=== PATIENT | female | born 1955 | race Caucasian/White ===

== ENCOUNTER 2023-09-16 16:33 | Outpatient (RCR) | payer MEDICARE, SELFPAY ==
[2023-09-16 14:11] LABS: Glucose - Point of Care 142 mg/dl (70-99)
[2023-09-16 14:50] LABS: Glucose - Point of Care 117 mg/dl (70-99)
== END 2023-09-16 23:59 | disposition home or self-care (01) ==
LOC: CRHB 16:33
PROVIDERS: ATTENDING PHYSICIAN Internal Medicine Cardiovascular Disease; FAMILY PHYSICIAN Internal Medicine
DX: I25.10 Atherosclerotic heart disease of native coronary artery without angina pectoris (principal); Z95.5 Presence of coronary angioplasty implant and graft; I25.2 Old myocardial infarction; E78.5 Hyperlipidemia, unspecified; E11.9 Type 2 diabetes mellitus without complications
CPT/HCPCS: 82962; G0422

== ENCOUNTER 2023-10-18 11:28 | Emergency (ER) | payer MEDICARE, SELFPAY ==
[2023-10-18] VITALS (7 sets, daily range): BP systolic 108–144; BP diastolic 51–84
[2023-10-18 12:42] LABS: % Basophils 0.2 % (0-2); % Eosinophils 1.2 % (0-6); % Immature Granulocytes 0.3 % (0-0.5); % Neutrophils 74.3 % (42.2-75.2); Absolute Eosinophils 0.1 10^3/uL (0-0.7); Absolute Lymphocytes 1.8 10^3/uL (1.2-3.4); Absolute Monocytes 0.6 10^3/uL (0.1-0.6); Absolute Neutrophils 7.5 10^3/uL (1.4-6.5); Hematocrit 34.7 % (37.0-47.0); Hemoglobin 11.7 g/dL (12.0-16.0); Mean Corp Hgb Conc. 33.7 g/dL (33.0-37.0); Mean Corpuscular Hgb 31.9 pg (27.0-31.0); Mean Corpuscular Volume 94.6 fL (81.0-99.0); Mean Platelet Volume 9.2 fL (7.4-10.4); Nucleated Red Blood Cells % 0 %; Platelet Count 344 10^3/uL (130-400); Red Blood Cell Count 3.67 10^6/uL (4.20-5.40); Red Cell Dist. Width 13.2 % (11.5-14.5)
[2023-10-18 12:48] LABS: INR 0.99; PT 12.9 Sec (11.4-14.6)
[2023-10-18 12:50] LABS: ALT (SGPT) 33 U/L (0-35); AST (SGOT) 26 U/L (14-36); Alkaline Phosphatase 68 U/L (38-126); Blood Urea Nitrogen 24 mg/dl (7-17); Calcium 9.2 mg/dl (8.4-10.2); Carbon Dioxide 23 mmol/L (22-30); Chloride 105 mmol/L (98-107); Glucose 190 mg/dl (70-99); Potassium 4.4 mmol/L (3.5-5.1); Sodium 135 mmol/L (135-145); Total Bilirubin 0.6 mg/dl (0.2-1.3); Total Protein 6.8 g/dl (6.3-8.2); eGFR > 60.00
[2023-10-18 13:01] LABS: Troponin I < 0.012 ng/ml
[2023-10-18 13:10] LABS: APTT 23.6 Sec (23.4-35.0)
--- NOTE | 2023-10-18 13:50 | CON.CAR ---
Addendum entered and electronically signed by Radha Hardin MD 10/18/23 15:26:
I saw and examined the patient.
The TELEMARKETING MANAGER's note was reviewed and I agree with the note.
Comment: 67 y/o female with hypertension, DM, dyslipidemia, and NSTEMI/CAD with stenting (ostial/proximal and mid circ) 07/2023, left shoulder orthopedic issues s/p cortisone injection Aug 2023 who presents for evaluation of brief episode of lt
upper chest/shoulder pain. She began to feel anxious and hot so sought care. She is feeling well, and only complaint is bruising from DAPT> Rrr, s1/s2 no m/r/g. LUNGS CTA. ECG is without ischemic changes, fisrt trop negative. Atypical cp, will
check add'l trop and if normal will follow up at outpatient. Symptoms c/w noncardiac etiology. She will continue remaining medi ations for CAD, HTN and DM.
Original Note:
Consultation
Consultation Request
Date/Time Consultation Requested: 10/18/23 1346
Date/Time Consultation Performed: 10/18/23 1400
Requesting Provider: Dr. Stephon Patel
Performing Provider: Mragaret BENÍTEZ for Dr. Hardin
Reason for Consultation: chest discomfort/ shoulder discomfort
Medical History
-
Chief Complaint: chest/shoulder discomfort
History of Present Illness:
67 y/o female with hypertension, DM, dyslipidemia, and NSTEMI/CAD with stenting (ostial/proximal and mid circ) 07/2023, left shoulder orthopedic issues s/p cortisone injection Aug 2023 who is here for evaluation of left upper chest/shoulder
discomfort since yesterday. It is a dull discomfort and lasts seconds. Nothing makes it better or worse. This morning, she worked out on the treadmill for 20 minutes without any discomfort. She was feeling well, then sat down to do bills and had the
discomfort again and then felt a wave of heat. She called 911 and was told to take a nitro and ASA. It was gone quickly, but she wasn't sure if that's what helped. She is CP free at the time of my assessment and looks quite well. EKG and trop look
good. Previous angina was left arm and neck pain and nausea/vomiting.
Past Medical History
Past Medical History: CAD, HTN, Hypercholesterolemia and NIDDM
Social History
Tobacco: Former Smoker
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
Family History
Family History: Reviewed & Not Pertinent
Allergies / Home Medications
Allergy/AdvReac Type Severity Reaction Status Date / Time
sulfamethoxazole Allergy Vomiting Verified 08/21/23 11:20
[From Bactrim]
trimethoprim [From Bactrim] Allergy Vomiting Verified 08/21/23 11:20
Medication Instructions Recorded Confirmed Type
lorazepam 0.5 mg tablet (Ativan) 0.5 mg PO DAILYPRN PRN panic 07/18/23 07/20/23 History
attacks,anxiety
magnesium 250 mg tablet 250 mg PO DAILY 07/18/23 07/20/23 History
ticagrelor 90 mg tablet (Brilinta) 90 mg PO BID Heart Failure #60 tabs 07/19/23 Rx
aspirin 81 mg tablet,delayed 81 mg PO DAILY 07/20/23 07/20/23 History
release
escitalopram oxalate 20 mg tablet 20 mg PO DAILY 07/20/23 07/20/23 History
(Lexapro)
losartan 100 mg tablet 50 mg PO DAILY 07/20/23 07/20/23 History
metformin 1,000 mg tablet 1,000 mg PO BID@0800,1700 07/20/23 07/20/23 History
metoprolol succinate 50 mg 50 mg PO DAILY #90 tabs 07/20/23 Rx
tablet,extended release 24 hr
(Toprol XL)
nitroglycerin 0.4 mg sublingual 0.4 mg sublingual [id number] PRN 07/20/23 Rx
tablet chest pain #25 tabs
rosuvastatin 20 mg tablet (Crestor) 20 mg PO DAILY #90 tabs 07/20/23 Rx
Review of Systems
-
History Source: Patient
All other systems: Negative unless noted
Constitutional: Other (hot feeling)
Cardiac: Chest Pain (chest/shoulder pain)
Musculoskeletal: Other (chest/shoulder pain)
Physical Exam
Vital Signs
Temp Pulse Resp BP Pulse Ox
98.2 F 68 15 116/51 95
10/18/23 11:29 10/18/23 12:30 10/18/23 12:30 10/18/23 12:00 10/18/23 12:30
Lab Results
10/18/23 12:29
10/18/23 12:29
Troponin I < 0.012 ng/ml 10/18/23 12:29
Physical Exam
General: Well Developed, Well Nourished and No Apparent Distress
HEENT: Normocephalic and Anicteric
Respiratory: Clear and Non Labored Respirations
Cardiac: Regular Rhythm
Breast: Deferred by me
Skin: Warm and Dry
Neuro: AO x 3
Psych: Calm
Impression / Plan
-
Chest/shoulder discomfort/hot feeling:
-resolved
-does not sound like ACS
-EKG and trop unremarkable
-exercised this AM without difficulty
-check another troponin
-does have known orthopedic issues as noted
HTN:
-stable
-continue medical therapy
DM2:
-continue medical therapy
CAD with hx stenting:
-continue ASA, Brilinta, metoprolol, and statin
Data Reviewed
-
EKG: Tracing Personally Visualized and interpreted (SR, stable)
Radiology: Report Reviewed by me (CXR: . Clear lungs. 2. No significant change compared to prior study.)
Medical Tests (Nuc Med, Echo etc): Report Reviewed by me (echo 07/19/23: Normal left ventricular size with mild concentric remodeling with inferior and inferolateral hypokinesis but preserved systolic function. Left ventricular ejection fraction
is 60-65%. Mild to moderate MR.) and Other (cath 07/31/23: ACS/non-STEMI presentation 2: Normal left ventricular function with EF 63% 3. Severe single-vessel (dominant circumflex) disease. Successful stenting of ostial/proximal and mid circumflex
lesions using 4.0 x 28 Xience REINALDO with outstanding angiographic result )
Labs: Labs Reviewed by me
[2023-10-18 15:58] LABS: Troponin I < 0.012 ng/ml
--- NOTE | 2023-10-18 17:50 | ED.GENMED ---
History of Present Illness
General
Chief Complaint: Chest Pain
Source: patient
Exam Limitations: none
Time Seen by Provider: 10/18/23 12:00
Nursing documentation reviewed up to this point in time: agreed with
Travel History
Have you had any contact with someone who has COVID-19?: No
Do you have any symptoms of coronavirus? Fever > 100 degrees, chills, cough, shortness of breath, sore throat, loss of taste or smell, muscle aches, or headache?: No
History of Present Illness
History of Present Illness:
67-year-old female with past medical history as documented notable for CAD status post stent in July 2023 (follows with Dr. Triplett for cardiology) who presents to the emergency room for evaluation of left shoulder and chest pain. Patient
reports she has had chronic issues with her left shoulder for months. She feels that over the past few weeks it may be slightly more frequent. She says that today she had an episode of pain in the left shoulder while she was at work that was
associated with some left-sided chest pain as well as some sensation of feeling 'very hot' and mildly dizzy. She says she felt mildly short of breath. She felt mildly nauseated. No vomiting. She says she thought that her symptoms could be
related to anxiety as she has been worried that her shoulder pain could be cardiac, with these new additional symptoms today she decided to come to the emergency room for assessment. She did take 3 baby aspirin and nitroglycerin at the urging of
the handhole machine operator. At the time of my assessment she says she is asymptomatic although shortly after finishing my assessment her left shoulder/chest pain returned. Of note patient says she did run on the treadmill for 20 to 30 minutes earlier today
and had absolutely no chest pain.
Past History
Past History
ED Past Medical History: CAD, HTN, Hypercholesterolemia, NIDDM, [place], Psychiatric and Other (renal calc)
ED Past Surgical History: Cardiac, Gynecological, Orthopedic and Tonsilectomy
Social History
Tobacco: Non-smoker
Alcohol: Occasional
Drug: None
Personal:
Living: with family
Employment: Employed
Review of Systems
Review of Systems
All Other Systems: ROS reviewed and negative except as documented in HPI and ROS
Constitutional: Denies fever or chills
EENT: Denies sore throat
Respiratory: Reports trouble breathing; Denies cough
Cardiac: Reports chest pain; Denies diaphoresis, palpitations or syncope
ABD/GI: Reports nausea; Denies abdominal pain or vomiting
: Denies flank pain
Musculoskeletal: Denies neck pain or back pain
Neurological: Reports dizzy; Denies headache, weakness or numbness
Phy Exam
Physical Exam
Physical Exam:
General: Awake, alert, oriented x3; no acute distress
Head: Normocephalic, atraumatic
Eyes: Conjunctiva normal, sclera anicteric
Throat: Airway intact, handling secretions
Neck: Trachea midline, supple without meningismus
Lungs: Clear to auscultation bilaterally, no wheezing, rales, rhonchi
Heart: Regular rate and rhythm, no murmurs, gallops, or rubs
Abd: Soft, non distended, nontender
Neuro: Cranial nerves grossly intact, speech fluid
Skin: no rash
Extremities: No edema in extremities, equal pulses in all extremities; with attention of the left shoulder she does have reproducible tenderness over the left anterior lateral humeral head; no scapular tenderness or tenderness along the clavicle on
the left; she has pain with internal/external rotation and flexion/extension of the shoulder; she has good strong left radial pulse and she has intact motor and sensory function radial, median, ulnar nerve distribution left upper extremity
Scores
Heart Failure Risk
Heart Failure Risk Score: Not Applicable
Heart Score for Chest Pain Patients
STEMI patient?: No
History: Moderately Suspicious
ECG: Normal
Age: >/= 65 years
Risk Factors: >/= 3 Risk Factors or History of CAD
Troponin: </= Normal Limit
Heart Score for Chest Pain Patients: 5
Heart Score Risk: 20.3% MACE over next 6 weeks
Withdrawal Assessment of Alcohol
Withdrawal Assessment Completed?: Not applicable
Course
Orders/Labs/Results
Orders:
Orders
10/18/23
Electrocardiogram (*1) Stat
Comment: ALREADY DONE
10/18/23 11:32
Electrocardiogram (*1) Urgent
Reason for Study: Chest Pain
EKG- Treatment ONCE
10/18/23 12:03
CR Chest - 2 Views Urgent
Comment:
Reason For Exam: cp
10/18/23 12:29
Complete Blood Count/With Diff Urgent
Comprehensive Metabolic Panel Urgent
PTT Urgent
Prothrombin Time Urgent
Troponin I Urgent
10/18/23 13:39
Electrocardiogram (*1) Urgent
Reason for Study: Chest Pain
EKG- Treatment ONCE
Nitroglycerin Sublingual [Nitrostat (Sublingual)] 0.4 mg SL NOW STA
10/18/23 13:46
CARDIOLOGY CONSULT Urgent
Consulting Provider: Radha Hardin
Was physician already notified: Yes
10/18/23 15:29
Troponin I Routine
Abnormal Lab Results
10/18/23
12:29
RBC 3.67 L 10^6/uL
(4.20-5.40)
Hgb 11.7 L g/dL
(12.0-16.0)
Hct 34.7 L %
(37.0-47.0)
MCH 31.9 H pg
(27.0-31.0)
Absolute Neuts (auto) 7.5 H 10^3/uL
(1.4-6.5)
Lymphocytes % 18.0 L %
(20.5-51.1)
BUN 24 H mg/dl
(7-17)
Glucose 190 H mg/dl
(70-99)
10/18/23 12:29
10/18/23 12:29
Vital Signs
Initial and Last Documented VS:
Initial Vital Signs
Temp Pulse Resp BP Pulse Ox
36.8 C 89 18 136/84 97
10/18/23 11:29 10/18/23 11:29 10/18/23 11:29 10/18/23 11:29 10/18/23 11:29
Last Documented Vital Signs
Temp Pulse Resp BP Pulse Ox
36.8 C 72 16 144/66 97
10/18/23 11:29 10/18/23 16:15 10/18/23 16:15 10/18/23 16:00 10/18/23 16:15
MDM/Problems Addressed
Differential Diagnosis Includes:
Rotator cuff tendinopathy, cervical radiculopathy, costochondritis, anxiety; ACS much less likely without any exertional component to her symptoms and with recent catheterization and stent in July showing no other obstructive disease
MDM/Problems Addressed:
67-year-old female presents for evaluation of left shoulder/chest pain with some additional associated hot sensation today and dizziness, shortness of breath. Vital signs are normal here. Exam as above. EKG shows no STEMI. Will send off labs
including a CBC and a CMP, serial troponins. Check a chest x-ray. Discussed case with cardiology to evaluate.
Labs reviewed: CBC and CMP unremarkable, troponins negative x 2. Chest x-ray reviewed by me no acute disease. Cardiology evaluated bedside agree unlikely that this is cardiac chest pain. Patient feeling very well on reassessment, chest pain-free.
She is stable for discharge at this point we will have her follow-up as an outpatient with cardiology and her primary care physician. She feels very comfortable with this. Spoke about return precautions all questions answered.
Chronic conditions affecting care:
CAD, anxiety
*Radiology
Radiology exam reviewed: preliminary read by ED provider and radiology read reviewed
*Pulse Oximetry
Patient hypoxic: no
*EKG
Interpreted by ED Provider?: Yes
Heart Rate: 67
Rate: normal
Rhythm: sinus
[place]: normal axis
Interval: normal interval
QRS Pattern: left vent hypertrophy
Ischemia: no ischemia
*Critical Care Note
Total Time (30-74mins, 75-104mins- exclusive of procedures): Not Applicable
Data Reviewed
Review of Other/Old Records Reveals: Labs
Source: patient, records and spouse
Patient Management
Discussion with other providers: Sql Database Programmer (Discussed with cardiology)
ED Attending Note
-
Portions of this chart may have been created with voice recognition software.� Occasional wrong word or��sound alike� substitutions may have occurred due to the inherent limitations of voice recognition software.
Discharge Plan
Departure
Patient Disposition: Home (Routine Discharge)
Date of Disposition: 10/18/23
Time of Disposition: 16:04
Patient with high blood pressure during this ER visit?: No
Discharge Problem:
Left shoulder pain, Chest pain
Instructions: Chest Pain CBC Follow Up
Prescriptions:
No Action
magnesium 250 mg Tablet
250 mg PO DAILY
lorazepam [Ativan] 0.5 mg Tablet
0.5 mg PO DAILYPRN PRN (Reason: panic attacks,anxiety)
Brilinta 90 mg Tablet
90 mg PO BID Qty: 60 11RF
metoprolol succinate [Toprol XL] 50 mg tablet extended release 24 hr
50 mg PO DAILY Qty: 90 3RF
nitroglycerin [nitroglycerin] 0.4 mg tablet, sublingual
0.4 mg sublingual [id number] PRN (Reason: chest pain) Qty: 25 2RF
metformin 1,000 mg Tablet
1,000 mg PO BID@0800,1700
losartan 100 mg Tablet
50 mg PO DAILY
escitalopram oxalate [Lexapro] 20 mg Tablet
20 mg PO DAILY
aspirin 81 mg Tablet,Delayed Release (Dr/Ec)
81 mg PO DAILY
rosuvastatin [Crestor] 20 mg tablet
20 mg PO DAILY Qty: 90 3RF
Referrals:
Woo Triplett MD [Active] - Call in 1-3 days for appt
Senia Abbasi MD [Family Provider] - Call in 1-3 days for appt
Activity Restrictions/Additional Instructions:
Thank you for visiting the Emergency Department at [facility].
1. Please schedule a follow up appointment as directed. Call first thing tomorrow morning to make an appointment.
2. If indicated, please take your medications as instructed and indicated on discharge paperwork.
3. If any of your symptoms do not improve, or persist, or become more severe within 6-12 hours, please return to the emergency department for further care.
4. Please return to the emergency department if you develop a headache, neck pain/stiffness, fever greater than 100.4F, chest pain, shortness of breath, persistent nausea, vomiting, slurred speech, difficulty walking, numbness/tingling, weakness,
signs of infection or any other symptoms that are worrisome to you.
Please call [phone] if you have any questions.
Interventions
Interventions:
*Risk Screen - Suicide Last Done: 10/18/23 11:29
*General Assessment Last Done: 10/18/23 11:29
*Neglect/Abuse Screening Last Done: 10/18/23 11:29
ED- Fall Risk Assessment Last Done: 10/18/23 12:36
*ED COVID-19 Vaccine History Last Done: 10/18/23 11:29
*Nursing Disposition Last Done: 10/18/23 16:28
ED- Cardiac Assessment Last Done: 10/18/23 11:52
Discharge Date and Time
Discharge Date/Time: 10/18/23 16:28
== END 2023-10-18 16:28 | disposition home or self-care (01) ==
LOC: EMR 11:28
PROVIDERS: Nurse Practitioner; CONSULT PHYSICIAN Internal Medicine Cardiovascular Disease; EMERGENCY PHYSICIAN Emergency Medicine; FAMILY PHYSICIAN Internal Medicine
DX: M25.512 Pain in left shoulder (principal); R07.89 Other chest pain; E11.9 Type 2 diabetes mellitus without complications; E78.00 Pure hypercholesterolemia, unspecified; F41.9 Anxiety disorder, unspecified; I11.9 Hypertensive heart disease without heart failure; I25.10 Atherosclerotic heart disease of native coronary artery without angina pectoris; I25.2 Old myocardial infarction; Z79.02 Long term (current) use of antithrombotics/antiplatelets; Z82.49 Family history of ischemic heart disease and other diseases of the circulatory system; Z87.891 Personal history of nicotine dependence; Z95.5 Presence of coronary angioplasty implant and graft
CPT/HCPCS: 99283; 71046; 80053; 84484; 85025; 85610; 85730; 93005

== ENCOUNTER 2024-01-24 12:08 | Inpatient (IN) | payer MEDICARE, SELFPAY ==
[2024-01-24] VITALS (17 sets, daily range): BP systolic 96–145; BP diastolic 49–76; BMI 28.7; BMI 29.3
[2024-01-24] MEDS: NSS 1000 IV ×2 (04:14→06:08)
[2024-01-24] MEDS: TYLENOL 1000 MG PO (04:14)
[2024-01-24 04:33] LABS: % Basophils 0.3 % (0-2); % Eosinophils 1.1 % (0-6); % Immature Granulocytes 0.5 % (0-0.5); % Lymphocytes 2.2 % (20.5-51.1); % Monocytes 4.8 % (1.7-9.3); % Neutrophils 91.1 % (42.2-75.2); Absolute Basophils 0.1 10^3/uL (0-0.2); Absolute Eosinophils 0.2 10^3/uL (0-0.7); Absolute Immature Granulocytes 0.1 10^3/uL (0-0.05); Absolute Lymphocytes 0.3 10^3/uL (1.2-3.4); Absolute Monocytes 0.7 10^3/uL (0.1-0.6); Absolute Neutrophils 13.5 10^3/uL (1.4-6.5); Hematocrit 35.2 % (37.0-47.0); Hemoglobin 12.1 g/dL (12.0-16.0); Mean Corp Hgb Conc. 34.4 g/dL (33.0-37.0); Mean Corpuscular Hgb 32.3 pg (27.0-31.0); Mean Corpuscular Volume 93.9 fL (81.0-99.0); Mean Platelet Volume 9.3 fL (7.4-10.4); Nucleated Red Blood Cells % 0 %; Platelet Count 289 10^3/uL (130-400); Red Blood Cell Count 3.75 10^6/uL (4.20-5.40); Red Cell Dist. Width 12.7 % (11.5-14.5); White Blood Cell Count 14.8 10^3/uL (4.8-10.8)
[2024-01-24] MEDS: LET TOPICAL ANESTHETIC GEL 3 ML TOPICAL (04:33)
[2024-01-24] MEDS: MORPHINE SULFATE 4 MG IV (04:34)
[2024-01-24 04:43] LABS: Lactic Acid 1.1 mmol/L (0.7-2.0)
[2024-01-24 04:44] LABS: ALT (SGPT) 20 U/L (0-35); AST (SGOT) 23 U/L (14-36); Albumin 3.9 g/dl (3.5-5.0); Alkaline Phosphatase 77 U/L (38-126); Blood Urea Nitrogen 22 mg/dl (7-17); Calcium 9.4 mg/dl (8.4-10.2); Carbon Dioxide 24 mmol/L (22-30); Chloride 100 mmol/L (98-107); Estimated Creatinine Clearance 85 ml/min; Glucose 215 mg/dl (70-99); Sodium 135 mmol/L (135-145); Total Bilirubin 0.5 mg/dl (0.2-1.3); Total Protein 6.8 g/dl (6.3-8.2); eGFR > 60.00
[2024-01-24 04:55] LABS: Troponin I < 0.012 ng/ml
[2024-01-24] MEDS: ZOSYN 100 IV (06:08)
[2024-01-24 06:35] LABS: COVID-19 Antigen Negative (Negative)
[2024-01-24] MEDS: VANCOCIN 540 MG IV (06:53)
--- NOTE | 2024-01-24 07:07 | ED.GENMED ---
History of Present Illness
General
Chief Complaint: Extremity Pain (non-traumatic)
Source: patient and family
Exam Limitations: none
Time Seen by Provider: 01/24/24 05:49
Travel History
Have you had any contact with someone who has COVID-19?: No
Do you have any symptoms of coronavirus? Fever > 100 degrees, chills, cough, shortness of breath, sore throat, loss of taste or smell, muscle aches, or headache?: No
History of Present Illness
History of Present Illness:
Patient started with swelling to the axilla about a week ago. Initially had a mammogram done with concern for an axillary lymph node. However became more tender. Saw her primary physician who recommended antibiotics but forgot to order them.
Patient did not pursue this at the time but this morning has noted some fever chills increasing pain. Also some left back pain some teeth pain. Fever 103 at home.
Past History
Past History
ED Past Medical History: CAD, HTN, Hypercholesterolemia, NIDDM, [place], Psychiatric and Other (renal calc)
ED Past Surgical History: Cardiac, Gynecological, Orthopedic and Tonsilectomy
Social History
Tobacco: Non-smoker
Alcohol: Occasional
Drug: None
Personal:
Living: with family
Employment: Employed
Review of Systems
Review of Systems
Constitutional: Reports fever and chills
Respiratory: Reports cough
: Denies dysuria or frequency
Phy Exam
Physical Exam
Physical Exam:
GENERAL: Alert and oriented in no apparent distress
EYE: Orbits normal.
NECK: Supple, no significant adenopathy.
ENT: Pharynx without erythema
CARDIAC: Regular rate and rhythm without any obvious murmurs.
LUNGS: Clear breath sounds,normal
ABDOMEN: Soft, without focal tenderness or distention. No true CVA tenderness
NEUROLOGICAL: Alert and oriented , grossly non-focal
SKIN: Warm and dry, probable abscess right axilla with some tenderness. Minimal erythema. No drainage.
MUSCULOSKELETAL: No edema,no deformity.Good color
PSYCH: Normal and appropriate interaction.
Course
Orders/Labs/Results
Orders:
Orders
01/24/24 04:00
Electrocardiogram (*1) Urgent
Reason for Study: Other
Other Reason for Exam: Possible Sepsis
Cardiac Monitoring- Treatment ONCE
EKG- Treatment ONCE
IV Insert/Care/Rem.- Treatment PRN
O2 Therapy [RESP] Urgent
Titrate/Wean O2 to maintain O2 sat greater than (%): 93
Special Instructions: TO MAINTAIN CONTINUOUS O2 SATS > OR = 93%
Pulse Ox/cont/shift [RESP] Urgent
Quantity: 1
Special Instructions: CONTINUOUS
01/24/24 04:04
0.9% Sodium Chloride 1000 ml [Nss] 1,000 ml IV BOLUS
01/24/24 04:05
Acetaminophen [Tylenol] 1,000 mg PO NOW STA
01/24/24 04:19
Complete Blood Count/With Diff Urgent
Comprehensive Metabolic Panel Urgent
Lactic Acid Q4H
Comment: ON ICE, CANCEL 2ND ORDER IF FIRST LACTIC ACID LEVEL <2
Troponin I Urgent
Blood Culture Q30M
ERIC Source: Blood/Venous
Specimen Description:
Comment: FROM 2 SEPARATE SITES
01/24/24 04:28
Blood Culture Q30M
ERIC Source: Blood/Venous
Specimen Description:
Comment: FROM 2 SEPARATE SITES
01/24/24 04:31
Lidocaine/Epinephrine/Tetracai [Let Topical Anesthetic Gel] 3 ml TOPICAL NOW STA
Morphine Sulfate 4 mg IV NOW STA
01/24/24 05:56
IV Insert/Care/Rem.- Treatment PRN
0.9% Sodium Chloride 1000 ml [Nss] 1,000 ml IV BOLUS
Piperacillin/Tazo 4.5 Gram [Zosyn] 4.5 gram in 100 ml IV NOW
01/24/24 05:58
CT Chest/abd/pel Wo Iv Cont Urgent
Comment:
Reason For Exam: left back paibn fever right axilaa abscess
01/24/24 06:02
COVID-19 Antigen Urgent
Source: Nasal Swab
Influenza A+B Rapid Molecular Urgent
ERIC Source: Nasal Swab
Specimen Description:
01/24/24 06:06
Vancomycin [Vancocin] 2,000 mg 0.9% Sodium Chloride 500 ml [Nss] 500 ml IV NOW
01/24/24 08:50
Urinalysis Reflex To Culture Urgent
Date Specimen was Collected: 01/24/24
Time Specimen was Collected: 08:48
Urine Microscopic Reflex Cult Urgent
Urine Culture Urgent
ERIC Source: U
Specimen Description:
Date Specimen was Collected: 01/24/24
Time Specimen was Collected: 08:48
01/24/24 09:17
Lidocaine 1%/Epinephrine [Xylocaine 1% with Epinephrine] 20 ml INFIL ONCE ONE
01/24/24 09:36
HYDROmorphone [Dilaudid] 1 mg IV NOW STA
01/24/24 09:51
Wound Culture [Wound/Abscess/Other Culture] Routine
ERIC Source: Abscess
Specimen Description:
Date Specimen was Collected: 01/24/24
Time Specimen was Collected: 09:49
Abnormal Lab Results
01/24/24 01/24/24
04:19 08:50
WBC 14.8 H 10^3/uL
(4.8-10.8)
RBC 3.75 L 10^6/uL
(4.20-5.40)
Hct 35.2 L %
(37.0-47.0)
MCH 32.3 H pg
(27.0-31.0)
Abs Immat Gran (auto) 0.1 H 10^3/uL
(0-0.05)
Absolute Neuts (auto) 13.5 H 10^3/uL
(1.4-6.5)
Absolute Lymphs (auto) 0.3 L 10^3/uL
(1.2-3.4)
Absolute Monos (auto) 0.7 H 10^3/uL
(0.1-0.6)
Neutrophils % 91.1 H %
(42.2-75.2)
Lymphocytes % 2.2 L %
(20.5-51.1)
BUN 22 H mg/dl
(7-17)
Glucose 215 H mg/dl
(70-99)
Ur Occult Blood Reflex 1+ A
(Negative)
Urine Nitrite (Reflex) Positive A
(Negative)
Leukocyte Esterase Rfl 1+ A
(Negative)
Urine Albumin (Reflex) 1+ A
(Neg - Trace)
01/24/24 04:19
01/24/24 04:19
Vital Signs
Initial and Last Documented VS:
Initial Vital Signs
Temp Pulse Resp BP Pulse Ox
99.4 F 126 28 145/70 96
01/24/24 03:27 01/24/24 03:27 01/24/24 03:27 01/24/24 03:27 01/24/24 03:27
Last Documented Vital Signs
Temp Pulse Resp BP Pulse Ox
100.0 F 94 20 105/59 95
01/24/24 05:33 01/24/24 10:10 01/24/24 10:10 01/24/24 10:00 01/24/24 10:00
MDM/Problems Addressed
Differential Diagnosis Includes:
Although systemic symptoms may all be from the axilla. Other considerations including pyelonephritis with the left flank and posterior mid back pain patient also has a cough. To consider pneumonia. Will cover with antibiotics. Workup in progress
*Radiology
Radiology exam reviewed: radiology read reviewed (Inflammation right axilla. No obvious fluid collection. No left-sided hydronephrosis. Incidental gallstones)
*Pulse Oximetry
Patient hypoxic: no
*Critical Care Note
Total Time (30-74mins, 75-104mins- exclusive of procedures): Not Applicable
Data Reviewed
Review of Other/Old Records Reveals: Labs and Testing
Update Note
Update Note:
CT with no drainable abscess. No other explanation for fever. Contacted hospitalist for admission. Also asked for surgery's opinion
Patient seen and drained by surgery. With the abscess systemic symptoms and UTI patient warrants inpatient management. This was discussed with the patient
ED Attending Note
-
Portions of this chart may have been created with voice recognition software.� Occasional wrong word or��sound alike� substitutions may have occurred due to the inherent limitations of voice recognition software.
Discharge Plan
Departure
Patient Disposition: Admit
Date of Disposition: 01/24/24
Time of Disposition: 08:59
Presentation/result/management discussed w/ accepting MD/DO: General surgery
Discharge Problem:
Right axillary abscess, With secondary systemic symptoms, UTI
Prescriptions:
No Action
magnesium 250 mg Tablet
250 mg PO DAILY
lorazepam [Ativan] 0.5 mg Tablet
0.5 mg PO DAILYPRN PRN (Reason: panic attacks,anxiety)
nitroglycerin [nitroglycerin] 0.4 mg tablet, sublingual
0.4 mg sublingual [id number] PRN (Reason: chest pain) Qty: 25 2RF
metformin 1,000 mg Tablet
1,000 mg PO DAILY
losartan 100 mg Tablet
100 mg PO DAILY
escitalopram oxalate [Lexapro] 20 mg Tablet
20 mg PO DAILY
aspirin 81 mg Tablet,Delayed Release (Dr/Ec)
81 mg PO DAILY
clopidogrel [Plavix] 75 mg Tablet
75 mg PO DAILY
rosuvastatin [Crestor] 20 mg tablet
20 mg PO HS
metoprolol succinate [Toprol XL] 50 mg tablet extended release 24 hr
50 mg PO DAILY
acetaminophen [Tylenol] 325 mg Tablet
650 mg PO Q4HPRN PRN (Reason: mild pain)
Theragen Tablet
1 tab PO DAILY
calcium carbonate [Calcium 500] 500 mg calcium (1,250 mg) Tablet
500 mg PO DAILY
cholecalciferol (vitamin D3) [Vitamin D3] 25 mcg (1,000 unit) Tablet
25 mcg PO DAILY
Mounjaro 10 mg/0.5 mL Pen Injector
10 mg SC TH
Referrals:
Senia Abbasi MD [Family Provider] -
Interventions
Interventions:
*Risk Screen - Suicide Last Done: 01/24/24 03:27
*General Assessment Last Done: 01/24/24 03:49
*Neglect/Abuse Screening Last Done: 01/24/24 03:49
ED- Fall Risk Assessment Last Done: 01/24/24 04:44
*ED COVID-19 Vaccine History Last Done: 01/24/24 03:49
ED-Skin Assessment Last Done: 01/24/24 04:44
ED-Peripheral Vascular Assessment Last Done: 01/24/24 04:44
ED- Neurological Assessment Last Done: 01/24/24 04:44
ED-Musculoskeletal Assessment Last Done: 01/24/24 04:44
Discharge Date and Time
Print Language: [email or web address]
[2024-01-24 09:41] LABS: Urine Albumin 1+ (Neg - Trace); Urine Bilirubin Negative (Negative); Urine Character Slightly Cloudy (Clear); Urine Color Yellow; Urine Glucose Negative (Negative); Urine Ketone Negative (Negative); Urine Leukocyte 1+ (Negative); Urine Nitrite Positive (Negative); Urine Occult Blood 1+ (Negative); Urine Urobilinogen Negative (Neg - 1+)
[2024-01-24] MEDS: DILAUDID 1 MG IV (09:41)
--- NOTE | 2024-01-24 10:46 | CON.GS ---
Consultation
-
Date/Time Consultation Requested: 01/24/2024 9 AM
Date/Time Consultation Performed: 01/24/2024 930 AM
Requesting Provider: Dr. Zhang (emergency department)
Performing Provider: Dr. Riggs
Reason for Consultation: Right axillary abscess
Medical History
-
Chief Complaint: Right axillary swelling
History of Present Illness:
This is a 68-year-old female with a history of diabetes who presents with a 1 week history of right axillary swelling, recent mammogram which patient reports was negative. Painful erythematous and tender to palpation but no fluctuance. Fever to
103 subjective at home, [address] chest abdomen pelvis which demonstrates a collection in the right axillary region for which general surgery was consulted. The patient denies Chest Pain, Shortness Of Breath, Nausea, Vomiting,
changes in urinary and bowel habits, unintentional weight loss.
Past Medical History
Past Medical History: Other (CAD status post stent (MS last year, on Plavix last dose 01/23/2024), NIDDM, hypertension, hypercholesterolemia)
Past Surgical History: Reviewed & Noncontributory
Social History
Tobacco: Non-Smoker
Alcohol: Occasional
Drug: None
Personal:
Living: With Family
Family History
Family History: Reviewed & Not Pertinent
Allergies / Home Medications
Allergy/AdvReac Type Severity Reaction Status Date / Time
sulfamethoxazole Allergy Vomiting Verified 01/24/24 03:31
[From Bactrim]
trimethoprim [From Bactrim] Allergy Vomiting Verified 01/24/24 03:31
�Medication �Instructions �Recorded �Confirmed �Type
lorazepam 0.5 mg tablet (Ativan) 0.5 mg PO DAILYPRN PRN panic 07/18/23 01/24/24 History
attacks,anxiety
magnesium 250 mg tablet 250 mg PO DAILY Electrolyte 07/18/23 01/24/24 History
Repletion
aspirin 81 mg tablet,delayed 81 mg PO DAILY Blood Clot 07/20/23 01/24/24 History
release Prevention/Tx
escitalopram oxalate 20 mg tablet 20 mg PO DAILY depression/anxiety 07/20/23 01/24/24 History
(Lexapro)
losartan 100 mg tablet 100 mg PO DAILY Blood Pressure 07/20/23 01/24/24 History
metformin 1,000 mg tablet 1,000 mg PO DAILY Diabetes 07/20/23 01/24/24 History
nitroglycerin 0.4 mg sublingual 0.4 mg sublingual [id number] PRN 07/20/23 01/24/24 Rx
tablet chest pain #25 tabs
acetaminophen 325 mg tablet 650 mg PO Q4HPRN PRN mild pain 01/24/24 01/24/24 History
(Tylenol)
calcium carbonate 500 mg PO DAILY 01/24/24 01/24/24 History
cholecalciferol (vitamin D3) 25 25 mcg PO DAILY 01/24/24 01/24/24 History
mcg (1,000 unit) tablet (Vitamin
D3)
clopidogrel 75 mg tablet (Plavix) 75 mg PO DAILY Blood Clot 01/24/24 01/24/24 History
Prevention/Tx
metoprolol succinate 50 mg 50 mg PO DAILY Blood Pressure 01/24/24 01/24/24 History
tablet,extended release 24 hr
(Toprol XL)
rosuvastatin 20 mg tablet 20 mg PO HS High Cholesterol 01/24/24 01/24/24 History
therapeutic multivitamin 1 tab PO DAILY 01/24/24 01/24/24 History
tirzepatide 10 mg/0.5 mL 10 mg SC TH 01/24/24 01/24/24 History
subcutaneous pen injector
(Mounjaro)
Review of Systems
-
All other systems: Negative unless noted
A 10 point review of systems was completed, and was negative except as per HPI.
Physical Exam
Vital Signs
Temp Pulse Resp BP Pulse Ox
100.0 F 94 20 105/59 95
01/24/24 05:33 01/24/24 10:10 01/24/24 10:10 01/24/24 10:00 01/24/24 10:00
01/23/24 01/24/24 01/25/24
06:59 06:59 06:59
Actual Weight 80.5 kg
Body Mass Index (BMI) 28.7
Lab Results
01/24/24 04:19
01/24/24 04:19
WBC 14.8 10^3/uL (4.8-10.8) H 01/24/24 04:19
Hgb 12.1 g/dL (12.0-16.0) 01/24/24 04:19
Hct 35.2 % (37.0-47.0) L 01/24/24 04:19
Plt Count 289 10^3/uL (130-400) 01/24/24 04:19
Abs Immat Gran (auto) 0.1 10^3/uL (0-0.05) H 01/24/24 04:19
Neutrophils % 91.1 % (42.2-75.2) H 01/24/24 04:19
Physical Exam
General: Well Developed
HEENT: Normocephalic
Respiratory: Clear
Breast: Other (The patient has a fluctuant, raised, erythematous lesion in her right axilla roughly 1 x 3 cm. Tender to palpation.)
GI: Soft
Psych: Calm
Data Reviewed
-
CT Scan: Image Personally Visualized and interpreted, Report Reviewed by me, Discussed with Physician, Discussed with Patient and Discussed with Family
Labs: Labs Reviewed by me, Discussed with Physician, Discussed with Patient and Discussed with Family
Total Time Spent with Patient (in minutes): 30
Assessment / Plan
-
This is a 68-year-old female with a history of diabetes, CAD status post stenting on Plavix last dose yesterday who presents with right axillary swelling x 1 week now with fevers at home. Exam, imaging, blood work all consistent with right axillary
abscess.
Will perform an incision and drainage in the ED.
4-day course of p.o. Augmentin should be sufficient. Follow-up wound cultures.
No indication for general surgery admission.
Wound care instructions reviewed with patient and . Initial set of wound care supplies given.
If patient is being admitted, recommend wound care consult for first packing change.
General surgery will sign off for now. Please call with any questions or concerns. Discharge instructions placed.
Can follow-up as an outpatient.
Risks/Benefits/Alternatives, expected postoperative course and possible complications (bleeding, infection, injury to surrounding structures, acute/chronic pain) discussed at length. Patient wishes to proceed with the bedside procedure. All
questions answered. Verbal consent obtained.
I spent roughly 60 minutes in total for the care of this patient today including direct patient care and counseling, reviewing labs, imaging, coordination of care, as well as documentation.
--- NOTE | 2024-01-24 11:09 | W.PN.UPDATE ---
Update Note
Progress Note Update
Bedside incision and Drainage
A team time-out was performed confirming the location/laterality of the procedure, consent and allergies reviewed.
Location: Right axilla
Dimensions: 1 x 3 cm
Local: 1% Lidocaine with epinephrine
Tucking Machine Operator: Perla Wadsworth
The skin was cleaned with alcohol and anesthetized with 10cc of 1% lidocaine with epinephrine. A cruciate incision was made over the area of greatest fluctuance and dissection carried down through subcutaneous tissue. The abscess cavity was
identified and deloculated. A wound culture was sent. The wound was irrigated with sterile saline. Hemostasis was obtained. There was minimal blood loss. The skin was packed with a half-inch packing strip. The patient tolerated the procedure
well, discharge instructions reviewed and all questions were answered.
--- NOTE | 2024-01-24 11:37 | HPS.HSE ---
Family Physician
-
Family Physician: Senia Abbasi
Chief Complaint
-
Right axillary pain and redness
History of Present Illness
68-year-old female with past medical history of rbn-wbpjpud-prbzqxsns diabetes mellitus, hyperlipidemia, hypertension, CAD, renal calculus came to the hospital with right axilla redness, pain and swelling. Per patient her symptoms started few days
ago. This morning she started developing fever which prompted her to come to the ED for evaluation. In the ER patient was seen by surgery and had axillary abscess drainage with packing in the ED. Patient currently denies any nausea, vomiting,
diarrhea, constipation. Denies any chest pain, shortness of breath.
Medical History
Past Medical History
Past Medical History: Reports CAD, HTN, Hypercholesterolemia and NIDDM
Past Surgical History: Reports Cardiac, Gynocological, Orthopedic and Tonsilectomy
Social History
Tobacco: Non-smoker
Alcohol: Occasional
Drug: None
Family History
Family History: Not pertinent
Allergies / Home Medications
Allergies reflects when Allergies were last updated in [employer].
Home Medications with original date entered in [employer]
Allergy/Medication List:
Allergies
Allergy/AdvReac Type Severity Reaction Status Date / Time
sulfamethoxazole Allergy Vomiting Verified 01/24/24 03:31
[From Bactrim]
trimethoprim [From Bactrim] Allergy Vomiting Verified 01/24/24 03:31
Home Medications
lorazepam 0.5 mg tablet (Ativan) 0.5 mg PO DAILYPRN PRN panic attacks,anxiety 07/18/23
magnesium 250 mg tablet 250 mg PO DAILY Electrolyte Repletion 07/18/23
aspirin 81 mg tablet,delayed release 81 mg PO DAILY Blood Clot Prevention/Tx 07/20/23
escitalopram oxalate 20 mg tablet (Lexapro) 20 mg PO DAILY depression/anxiety 07/20/23
losartan 100 mg tablet 100 mg PO DAILY Blood Pressure 07/20/23
metformin 1,000 mg tablet 1,000 mg PO DAILY Diabetes 07/20/23
nitroglycerin 0.4 mg sublingual tablet 0.4 mg sublingual [id number] PRN chest pain #25 tabs 07/20/23
acetaminophen 325 mg tablet (Tylenol) 650 mg PO Q4HPRN PRN mild pain 01/24/24
calcium carbonate 500 mg PO DAILY 01/24/24
cholecalciferol (vitamin D3) 25 mcg (1,000 unit) tablet (Vitamin D3) 25 mcg PO DAILY 01/24/24
clopidogrel 75 mg tablet (Plavix) 75 mg PO DAILY Blood Clot Prevention/Tx 01/24/24
metoprolol succinate 50 mg tablet,extended release 24 hr (Toprol XL) 50 mg PO DAILY Blood Pressure 01/24/24
rosuvastatin 20 mg tablet 20 mg PO HS High Cholesterol 01/24/24
therapeutic multivitamin 1 tab PO DAILY 01/24/24
tirzepatide 10 mg/0.5 mL subcutaneous pen injector (Mounjaro) 10 mg SC TH 01/24/24
Review of Systems
-
History Source: Patient
A 12 point ROS was completed and negative except as noted: Yes
Constitutional: Reports Chills
Physical Exam
Vital Signs
Vital Signs
Temp Pulse Resp BP Pulse Ox
100.0 F 94 20 120/70 99
01/24/24 05:33 01/24/24 10:10 01/24/24 10:10 01/24/24 11:01 01/24/24 11:01
Physical Exam
General: No Apparent Distress and Comfortable
HEENT: Anicteric and Moist mucous membranes
Respiratory: Clear and Non Labored Respirations; No Wheezes
Cardiac: S1/S2 and Regular Rhythm
Breast: Deferred by me
GI: Soft, Non Tender, Non Distended and Normal Bowel Sounds
Genito-urinary: Deferred by me
Musculoskeletal: No Edema
Skin: Other (Right axillary erythema)
Neuro: Awake, Alert, Oriented and AO x 3
Psych: Calm and Intact Judgment/Insight
Laboratory Results
-
01/24/24 04:19
01/24/24 04:19
Laboratory Results
Lactic Acid Cancelled 01/24/24 08:00
Total Bilirubin 0.5 mg/dl (0.2-1.3) 01/24/24 04:19
AST 23 U/L (14-36) 01/24/24 04:19
ALT 20 U/L (0-35) 01/24/24 04:19
Alkaline Phosphatase 77 U/L (38-126) 01/24/24 04:19
Troponin I < 0.012 ng/ml 01/24/24 04:19
Data Reviewed
-
Lab Data: Labs Reviewed by me, Discussed with Patient and Discussed with Family
Impression/Plan
-
Sepsis (leukocytosis, fever, tachycardia, tachypnea) likely secondary to right axillary abscess with cellulitis
Abscess drained in the ED by general surgery
Follow culture from abscess drainage
Continue with vancomycin
Wound care consult
Suspect UTI
monitor urine cx
per radiology mild perinephric stranding on left kidney is similar in appearance compared to the previous CT scan.
recent NSTEMI with Lcx PCI
cw ASA and plavix
History of hypertension
Continue metoprolol
History of civ-smllqww-apffhtbut responses
Hold metformin
Insulin sliding scale, Accu-Cheks
Hyperlipidemia
History of anxiety
DVT prophylaxis
Lovenox
Full code
I spent a total of 77 minutes with the patient or on the floor. More than 50% of this time involved counseling and coordination of care.
--- NOTE | 2024-01-24 11:50 | PHA.VAN.IN ---
Assessment
- Assessment
Renal Function: Appears similar to baseline
AUC Dosing Plan
- Dosing Variables
Dosing Weight (kg): 80.5
Dosing CrCl (ml/min): 85
Vd coefficient (L/kg): 0.7
- Empiric Dosing
Initial / Loading Dose: Vanc 2000mg - 01/23 06:53
Maintenance Regimen: Vanc 1000mg Q12H starting at 1800
Estimated AUC (mcg*h/mL): 491
Estimated Peak (mcg*h/mL): 29.9
Estimated Trough (mcg/ml): 13.1
Estimated Half Life (H): 9.2
- Monitoring
No levels ordered at this time: consider levels in next few days
Pharmacokinetics Vancomycin I
- -
Patient Age: 68
Patient Sex: Female
Vancomycin Day #: 1
Indication: Skin And Soft Tissue
Requesting Provider: Dr. Winters
Pertinent Antimicrobial Allergies:
sulfamethoxazole/trimethoprim - vomiting
Height / Weight:
Height 5 ft 6 in
Actual Weight 80.5 kg
Pertinent Past Medical History: DM
- Vital Signs / Lab Results
Temp Pulse Resp BP Pulse Ox
100.0 F 94 20 120/70 99
01/24/24 05:33 01/24/24 10:10 01/24/24 10:10 01/24/24 11:01 01/24/24 11:01
Lab Results - Hematology
01/24/24
04:19
WBC 14.8 H
Lab Results - Chemistry
01/24/24
04:19
BUN 22 H
Creatinine 0.7
Estimated Creat Clear 85
Albumin 3.9
01/24/24 01/24/24
04:19 08:00
Lactic Acid 1.1 Cancelled
Lab Results - Urine
01/24/24
08:50
Urine Nitrite (Reflex) Positive A
Leukocyte Esterase Rfl 1+ A
Microbiology Results
01/24/24 09:51 Gram Stain - Preliminary
Abscess
01/24/24 06:02 Influenza Types A & B (CLARI) - Final
Nasal Swab Negative for Influenza A & B, NAAT
Negative results must be combined with clinical observations
and patient history.
Nucleic Acid Amplification test (NAAT)performed on the
[employer] platform.
[2024-01-24 12:01] LABS: Urine Mucus Few; Urine Squamous Cell 26-30 /LPF (Few)
[2024-01-24 12:02] LABS: Urine Amorphous Seen; Urine Bacteria Many (Negative); Urine Red Blood Cell 0-2 /HPF (0-2); Urine White Cell 26-30 /HPF (0-5)
--- NOTE | 2024-01-24 14:15 | WOUNDNOTE ---
YAMILA RN NOTE: Received consult for R axilla wound. Reviewed Dr. Dean's note, I&D done in ER and dressing applied, wound care to change 1st dressing. Will follow for dressing change tomorrow and confirm orders with Dr. Riggs.
[2024-01-24] MEDS: ZOSYN IV (16:05)
[2024-01-24 16:39] LABS: Glucose - Point of Care 179 mg/dl (70-99)
[2024-01-24] MEDS: NOVOLOG FLEXPEN-LOW RESISTANCE 1 UNITS SC (17:00)
[2024-01-24] MEDS: VANCOCIN 200 IV (17:06)
[2024-01-24] MEDS: MORPHINE SULFATE 1 MG IV ×2 (17:07→21:43)
[2024-01-24] MEDS: LOVENOX 40 MG SC (17:08)
[2024-01-24] MEDS: TYLENOL 650 MG PO (17:08)
[2024-01-24] MEDS: ZOSYN 50 IV (21:37)
[2024-01-24] MEDS: CRESTOR 20 MG PO (21:37)
[2024-01-24 21:43] LABS: Glucose - Point of Care 132 mg/dl (70-99)
[2024-01-25] MEDS: ZOSYN 50 IV ×4 (02:21→21:14)
[2024-01-25 02:30] VITALS: BP 130/63
[2024-01-25] MEDS: MORPHINE SULFATE 1 MG IV (05:48)
[2024-01-25] MEDS: VANCOCIN 200 IV ×2 (05:49→17:32)
[2024-01-25 06:00] VITALS: BMI 28.9
[2024-01-25 07:40] VITALS: BP 134/74
[2024-01-25 08:08] LABS: Glucose - Point of Care 162 mg/dl (70-99)
[2024-01-25 08:32] LABS: % Basophils 0.1 % (0-2); % Eosinophils 3.3 % (0-6); % Immature Granulocytes 0.4 % (0-0.5); % Lymphocytes 5.4 % (20.5-51.1); % Monocytes 5.5 % (1.7-9.3); % Neutrophils 85.3 % (42.2-75.2); Absolute Eosinophils 0.5 10^3/uL (0-0.7); Absolute Immature Granulocytes 0.1 10^3/uL (0-0.05); Absolute Lymphocytes 0.7 10^3/uL (1.2-3.4); Absolute Monocytes 0.7 10^3/uL (0.1-0.6); Absolute Neutrophils 11.5 10^3/uL (1.4-6.5); Hematocrit 32.5 % (37.0-47.0); Hemoglobin 11.1 g/dL (12.0-16.0); Mean Corp Hgb Conc. 34.2 g/dL (33.0-37.0); Mean Corpuscular Hgb 31.4 pg (27.0-31.0); Mean Corpuscular Volume 92.1 fL (81.0-99.0); Mean Platelet Volume 9.2 fL (7.4-10.4); Nucleated Red Blood Cells % 0 %; Platelet Count 241 10^3/uL (130-400); Red Blood Cell Count 3.53 10^6/uL (4.20-5.40); Red Cell Dist. Width 13.1 % (11.5-14.5); White Blood Cell Count 13.5 10^3/uL (4.8-10.8)
[2024-01-25] MEDS: NOVOLOG FLEXPEN-LOW RESISTANCE 1 UNITS SC ×3 (08:56→17:31)
[2024-01-25] MEDS: ASPIR LOW (ENTERIC COATED) 81 MG PO (08:57)
[2024-01-25] MEDS: TYLENOL 650 MG PO ×2 (08:57→16:15)
[2024-01-25] MEDS: THERAGRAN 1 TABLET PO (08:57)
[2024-01-25] MEDS: TOPROL XL 50 MG PO (08:57)
[2024-01-25] MEDS: LEXAPRO 20 MG PO (08:57)
[2024-01-25] MEDS: VITAMIN D3 (cholecalciferol) 25 MCG PO (08:58)
[2024-01-25] MEDS: PLAVIX 75 MG PO (08:58)
[2024-01-25] MEDS: MAG-TAB SR 84 MG PO (08:58)
[2024-01-25] MEDS: OSCAL CAL 500 500 MG PO (08:58)
[2024-01-25] MEDS: DILAUDID 0.5 MG IV ×3 (09:15→18:54)
[2024-01-25 09:17] LABS: ALT (SGPT) 21 U/L (0-35); AST (SGOT) 23 U/L (14-36); Alkaline Phosphatase 71 U/L (38-126); Blood Urea Nitrogen 15 mg/dl (7-17); Calcium 8.8 mg/dl (8.4-10.2); Carbon Dioxide 23 mmol/L (22-30); Chloride 105 mmol/L (98-107); Estimated Creatinine Clearance 74 ml/min; Glucose 157 mg/dl (70-99); Potassium 3.9 mmol/L (3.5-5.1); Sodium 136 mmol/L (135-145); Total Bilirubin 0.4 mg/dl (0.2-1.3); Total Protein 5.7 g/dl (6.3-8.2); eGFR > 60.00
[2024-01-25 10:09] LABS: Glycohemoglobin (HgbA1c) 7.4 % (4.0-5.6)
--- NOTE | 2024-01-25 10:20 | PHA.VAN.FU ---
Vancomycin Assessment / Plan
- Assessment
Renal Function: Stable
WBC's are: Trending Down
Concomitant Antimicrobials: piperacillin/tazobactam
- Dosing Plan
Continue: Vanc 1000mg Q12H
- Monitoring Plan
No level(s) ordered at this time: consider levels in next few days
- Follow Up
Pharmacy will continue to follow.
Vancomycin Follow UP
- -
Patient Age: 68
Patient Sex: Female
Vancomycin Day #: 2
Indication: Skin And Soft Tissue
Requesting Provider: Dr. Winters
Pertinent Antimicrobial Allergies:
sulfamethoxazole/trimethoprim - vomiting
Height / Weight:
Height 5 ft 6 in
Actual Weight 81.057 kg
Pertinent Past Medical History: DM
- Vital Signs / Lab Results
Temp Pulse Resp BP Pulse Ox
98.1 F 102 12 134/74 96
01/25/24 07:40 01/25/24 07:40 01/25/24 07:40 01/25/24 07:40 01/25/24 07:40
Lab Results - Hematology
01/24/24 01/25/24
04:19 08:08
WBC 14.8 H 13.5 H
Lab Results - Chemistry
01/24/24 01/25/24
04:19 08:08
BUN 22 H 15
Creatinine 0.7 0.8
Estimated Creat Clear 85 74
Albumin 3.9 3.0 L
01/24/24 01/24/24
04:19 08:00
Lactic Acid 1.1 Cancelled
Lab Results - Urine
01/24/24
08:50
Urine Nitrite (Reflex) Positive A
Leukocyte Esterase Rfl 1+ A
Ur Squamous Epith Cells 26-30
Microbiology Results
01/24/24 04:28 Blood Culture - Preliminary
Blood/Venous No Growth in 24 hours- Final report to follow
01/24/24 04:19 Blood Culture - Preliminary
Blood/Venous No Growth in 24 hours- Final report to follow
01/24/24 09:51 Gram Stain - Preliminary
Abscess
01/24/24 06:02 Influenza Types A & B (CLARI) - Final
Nasal Swab Negative for Influenza A & B, NAAT
Negative results must be combined with clinical observations
and patient history.
Nucleic Acid Amplification test (NAAT)performed on the
[employer] platform.
[2024-01-25 11:32] VITALS: BP 123/65
--- NOTE | 2024-01-25 11:56 | WOUNDNOTE ---
WON RN note: Patient admitted with R axillary wound.
See H&P for complete history.
PMH: NIDDM, [place], Cardiac stent, ex smoker, Baron-Parkinson White syndrome.
Wound Location and type/assessment: Patient s/p I&D of R axilla by Dr. Dean done in ER yesterday. Packing removed, drainage serosanguineous, no odor. Medially from opening is what looks like a pimple. Patient states pimple was there prior to
admission. Patient feels that she may have had an ingrown hair or irritated from shaving and using a old roll on deodorant. Teaching regarding wound care reinforced, patient said surgeon showed how to do packing and dressing. Supplies at
bedside.
Appetite: Good.
Pressure redistribution devices in place: Air mattress turns self. Arm elevated on pillow and air cushion.
Plan: Replaced packing with 1/4' iodoform packing strip, covered with 2x2 gauze and silicone foam.
Updated care plan and nurse, will follow as needed.
Note to case management of equipment requested for discharge: None
Recommend follow up at wound care center upon discharge if wound not healing.
--- NOTE | 2024-01-25 12:01 | CM ---
utilization management manager reviewed patient's chart and met with patient and spouse at bedside, patient lives in an apartment is independent with adl's and ambulation, no dme, patient drives, home when stable, no needs. Patient has a prescription plan and uses
[facility] pharmacy.
PCP: Dr Abbasi
Plan; Home with spouse when stable.
[2024-01-25 12:41] LABS: Glucose - Point of Care 159 mg/dl (70-99)
--- NOTE | 2024-01-25 13:22 | W.PN.HOSP.TC ---
Today's Communication/Plan
-
monitor vitals
see plan
follow cultures
cw abx
pain control
wound care
Assessment / Plan
Assessment / Plan
General: No Apparent Distress and Comfortable
HEENT: Anicteric and Moist mucous membranes
Respiratory: Clear and Non Labored Respirations; No Wheezes
Cardiac: S1/S2 and Regular Rhythm
GI: Soft, Non Tender, Non Distended and Normal Bowel Sounds
Musculoskeletal: No Edema
Skin: Other (Right axillary erythema)
Neuro: Awake, Alert, Oriented and AO x 3
Psych: Calm and Intact Judgment/Insight
Sepsis (leukocytosis, fever, tachycardia, tachypnea) likely secondary to right axillary abscess with cellulitis
Abscess drained in the ED by general surgery
Follow culture from abscess drainage; growing staph
Continue with vancomycin
Wound care following
Suspect UTI
urine cx without any growth
per radiology mild perinephric stranding on left kidney is similar in appearance compared to the previous CT scan.
recent NSTEMI with Lcx PCI
cw ASA and plavix
History of hypertension
Continue metoprolol
History of vlu-ufwlwwx-mgjapdabo responses
Hold metformin
Insulin sliding scale, Accu-Cheks
A1c 7.4
Hyperlipidemia
History of anxiety
DVT prophylaxis
Lovenox
Full code
Anticipated Discharge: 24 - 48 hours
Subjective/Interval History
-
Date of Service: January 25, 2024
has some pain
Objective Data
-
Labs:
Laboratory Results
01/25/24
08:08
WBC 13.5 H
Hgb 11.1 L
Hct 32.5 L
Plt Count 241
Sodium 136
Potassium 3.9
Chloride 105
Carbon Dioxide 23
BUN 15
Creatinine 0.8
Glucose 157 H
Calcium 8.8
Total Bilirubin 0.4
AST 23
ALT 21
Alkaline Phosphatase 71
Vital Signs:
Vital Signs
Temp Pulse Resp BP Pulse Ox
97.9 F 86 16 123/65 97
01/25/24 11:32 01/25/24 11:32 01/25/24 11:32 01/25/24 11:32 01/25/24 11:32
I&O
01/24/24 01/25/24 01/26/24
06:59 06:59 06:59
Intake Total 1100 / 1100 480 / 480
Balance 1100 / 1100 480 / 480
[2024-01-25 15:29] VITALS: BP 119/59
[2024-01-25 17:19] LABS: Glucose - Point of Care 189 mg/dl (70-99)
[2024-01-25] MEDS: LOVENOX 40 MG SC (17:32)
[2024-01-25 19:39] VITALS: BP 117/64
[2024-01-25] MEDS: CRESTOR 20 MG PO (21:14)
[2024-01-25 21:35] LABS: Glucose - Point of Care 177 mg/dl (70-99)
[2024-01-25 23:29] VITALS: BP 128/65
[2024-01-26] MEDS: DILAUDID 0.5 MG IV ×2 (00:25→12:25)
[2024-01-26] MEDS: ZOSYN 50 IV ×3 (01:32→13:31)
[2024-01-26 03:52] VITALS: BP 142/69
[2024-01-26] MEDS: VANCOCIN 200 IV (05:47)
[2024-01-26 06:00] VITALS: BMI 28.4
[2024-01-26 07:07] LABS: % Basophils 0.3 % (0-2); % Eosinophils 4.9 % (0-6); % Immature Granulocytes 0.3 % (0-0.5); % Lymphocytes 12.6 % (20.5-51.1); % Monocytes 8.4 % (1.7-9.3); % Neutrophils 73.5 % (42.2-75.2); Absolute Eosinophils 0.3 10^3/uL (0-0.7); Absolute Lymphocytes 0.8 10^3/uL (1.2-3.4); Absolute Monocytes 0.6 10^3/uL (0.1-0.6); Absolute Neutrophils 4.9 10^3/uL (1.4-6.5); Hematocrit 30.3 % (37.0-47.0); Hemoglobin 10.1 g/dL (12.0-16.0); Mean Corp Hgb Conc. 33.3 g/dL (33.0-37.0); Mean Corpuscular Hgb 31.4 pg (27.0-31.0); Mean Corpuscular Volume 94.1 fL (81.0-99.0); Mean Platelet Volume 9.4 fL (7.4-10.4); Nucleated Red Blood Cells % 0 %; Platelet Count 220 10^3/uL (130-400); Red Blood Cell Count 3.22 10^6/uL (4.20-5.40); Red Cell Dist. Width 12.6 % (11.5-14.5); White Blood Cell Count 6.7 10^3/uL (4.8-10.8)
[2024-01-26 07:24] LABS: ALT (SGPT) 18 U/L (0-35); AST (SGOT) 20 U/L (14-36); Albumin 2.9 g/dl (3.5-5.0); Alkaline Phosphatase 63 U/L (38-126); Blood Urea Nitrogen 18 mg/dl (7-17); Calcium 9.2 mg/dl (8.4-10.2); Carbon Dioxide 26 mmol/L (22-30); Chloride 101 mmol/L (98-107); Estimated Creatinine Clearance 74 ml/min; Glucose 159 mg/dl (70-99); Potassium 3.6 mmol/L (3.5-5.1); Sodium 136 mmol/L (135-145); Total Bilirubin 0.4 mg/dl (0.2-1.3); Total Protein 5.5 g/dl (6.3-8.2); eGFR > 60.00
[2024-01-26 07:35] LABS: Glucose - Point of Care 173 mg/dl (70-99)
[2024-01-26 08:30] VITALS: BP 145/70
[2024-01-26] MEDS: NOVOLOG FLEXPEN-LOW RESISTANCE 1 UNITS SC (08:45)
[2024-01-26] MEDS: LEXAPRO 20 MG PO (08:47)
[2024-01-26] MEDS: TOPROL XL 50 MG PO (08:47)
[2024-01-26] MEDS: THERAGRAN 1 TABLET PO (08:47)
[2024-01-26] MEDS: OSCAL CAL 500 500 MG PO (08:48)
[2024-01-26] MEDS: ASPIR LOW (ENTERIC COATED) 81 MG PO (08:48)
[2024-01-26] MEDS: VITAMIN D3 (cholecalciferol) 25 MCG PO (08:49)
[2024-01-26] MEDS: MAG-TAB SR 84 MG PO (08:49)
[2024-01-26] MEDS: PLAVIX 75 MG PO (08:53)
--- NOTE | 2024-01-26 09:45 | CM ---
Chart reviewed and plan is to home when stable, spouse had teaching with woundcare at home, follow up with woundcare center.
Plan; Home with spouse when stable.
[2024-01-26 11:16] LABS: Glucose - Point of Care 206 mg/dl (70-99)
[2024-01-26 11:30] VITALS: BP 144/70
--- NOTE | 2024-01-26 11:51 | W.PN.HOSP.TC ---
Today's Communication/Plan
-
Monitor vital signs see plan
Antibiotics to p.o. Augmentin on discharge
Patient will follow-up with surgery outpatient
Time of discharge 37-minutes
Assessment / Plan
Assessment / Plan
General: No Apparent Distress and Comfortable
HEENT: Anicteric and Moist mucous membranes
Respiratory: Clear and Non Labored Respirations; No Wheezes
Cardiac: S1/S2 and Regular Rhythm
GI: Soft, Non Tender, Non Distended and Normal Bowel Sounds
Musculoskeletal: No Edema
Skin: Other (Right axillary erythema)
Neuro: Awake, Alert, Oriented and AO x 3
Psych: Calm and Intact Judgment/Insight
Sepsis (leukocytosis, fever, tachycardia, tachypnea) likely secondary to right axillary abscess with cellulitis
Abscess drained in the ED by general surgery
Follow culture from abscess drainage; grew MSSA. switch to Po augmentin and dc. patient will f/u with surgery outpatient. is aware of wound care
was on vanc
Wound care following
Suspect UTI initially however no symptoms; UTI was not present
urine cx without any growth
per radiology mild perinephric stranding on left kidney is similar in appearance compared to the previous CT scan.
Tick noted 01/25 on patient's scalp. Tech flushed it so couldnt see.
no rash on exam. Per patent she will f/u with pcp outpatient. Patient does not think it was Lyme tick. She was done lyme vaccines
recent NSTEMI with Lcx PCI
cw ASA and plavix
History of hypertension
Continue metoprolol
History of qkx-zpxzjzp-llzwokbzq responses
Hold metformin
Insulin sliding scale, Accu-Cheks
A1c 7.4
Hyperlipidemia
History of anxiety
DVT prophylaxis
Lovenox
Full code
Anticipated Discharge: Today
Subjective/Interval History
-
Date of Service: January 26, 2024
denies nausea
Objective Data
-
Labs:
Laboratory Results
01/26/24
06:29
WBC 6.7
Hgb 10.1 L
Hct 30.3 L
Plt Count 220
Sodium 136
Potassium 3.6
Chloride 101
Carbon Dioxide 26
BUN 18 H
Creatinine 0.8
Glucose 159 H
Calcium 9.2
Total Bilirubin 0.4
AST 20
ALT 18
Alkaline Phosphatase 63
Vital Signs:
Vital Signs
Temp Pulse Resp BP Pulse Ox
97.9 F 79 18 145/70 98
01/26/24 08:30 01/26/24 08:30 01/26/24 08:30 01/26/24 08:30 01/26/24 08:30
I&O
01/25/24 01/26/24 01/27/24
06:59 06:59 06:59
Intake Total 480 / 480 1840 / 1840
Balance 480 / 480 1840 / 1840
--- NOTE | 2024-01-26 12:00 | W.DCSUMMARY ---
Discharge Summary
Discharge Data
Date of Admission: 01/24/24
Date of Discharge: 01/26/24
-
Pending Results: No
Hospital Course
68-year-old female with past medical history of recent NSTEMI with PCI, essential hypertension, cce-ohtahyn-rdmwhyrjq diabetes mellitus, hyperlipidemia, anxiety came to the hospital with sepsis likely secondary to a right axillary abscess with
cellulitis. Patient underwent abscess drainage by general surgery. Cultures from the drainage grew MSSA. Patient was initially on IV antibiotic which was later transitioned to oral Augmentin prior to discharge. Patient was instructed to
follow-up with surgery outpatient. There was also some suspicion of having urinary tract infection however urine culture did not grow any bacteria and patient did not had any symptoms so she was not treated. Once patient symptoms continue to
improve, she was then discharged on oral antibiotics with instructions to follow-up with all the physicians outpatient.
Discharge Plan
-
Patient Disposition: Home (Routine Discharge)
Discharge Diagnosis/Procedures: Sepsis secondary to right axillary abscess with cellulitis
Diabetes mellitus
Condition: Fair
Diet: As tolerated
Activity: No restrictions
Driving Restrictions: As prior to admission
Bathing Restrictions: None
Activity Restrictions/Additional Instructions:
Instructions following Skin abscess drainage
Please call [phone] if you have any questions or concerns after your surgery.
Wound Care:
Your incisions is packed with iodoform gauze. It is ok to shower the day after your surgery, simply remove the old packing -shower as you normally do. Do not scrub the incision, let soap and water wash over them and pat dry. Then replace the
packing with the wound care supplies given to you.
� Some bruising around your incisions is normal.
� You may use ice packs to minimize swelling.
� No swimming or soaking incisions.
Activity:
There are no restrictions.
Pain Management:
Use Tylenol, ibuprofen and ice packs to treat your pain.
� You may take 650 milligrams of Tylenol (Max 3 grams per day) every 6 hours, and 600 mg of ibuprofen also every 6 hours. (you can alternate them every 3 hours)
� You may use an ice pack to your incision as needed.
Medications:
You may resume your home medications.
Diet:
After your procedure, there are no dietary restrictions.
Driving restrictions:
No driving if you are taking prescription pain medication or if you think your normal reaction time and attentiveness has been slowed by your procedure.
Things to Look out for:
Worsening pain, redness or drainage from incision
Call Doctor for:
Please call if you notice worsening redness or drainage from incision(s) lasting longer than 2 days after your surgery, any foul-smelling drainage from the incision, pain not controlled by pain medications, persistent nausea and vomiting, or for any
fevers greater than 101.3 F. The number for questions/concerns is [phone]
Follow-up:
A follow-up appointment will be scheduled with your surgeon in 2 weeks. Please call prior to your appointment if you have any questions or concerns. [phone]
Please follow-up with your primary care physician outpatient early next week
Referrals:
Russel Riggs MD [Active] - in less than 1 week
[facility] [[facility]] -
Senia Abbasi MD [Family Provider] - in less than 1 week
Prescriptions:
New
amoxicillin-pot clavulanate 875-125 mg tablet
1 tab PO Q12H Qty: 20 0RF
tramadol 50 mg tablet
50 mg PO Q8H PRN (Reason: Pain) Qty: 14 0RF
pantoprazole [Protonix] 40 mg tablet,delayed release (DR/EC)
40 mg PO DAILY Qty: 30 0RF
Continued
magnesium 250 mg Tablet
250 mg PO DAILY
lorazepam [Ativan] 0.5 mg Tablet
0.5 mg PO DAILYPRN PRN (Reason: panic attacks,anxiety)
nitroglycerin 0.4 mg tablet, sublingual
0.4 mg sublingual [id number] PRN (Reason: chest pain) Qty: 25 2RF
metformin 1,000 mg Tablet
1,000 mg PO DAILY
losartan 100 mg Tablet
100 mg PO DAILY
escitalopram oxalate [Lexapro] 20 mg Tablet
20 mg PO DAILY
aspirin 81 mg Tablet,Delayed Release (Dr/Ec)
81 mg PO DAILY
clopidogrel [Plavix] 75 mg Tablet
75 mg PO DAILY
rosuvastatin 20 mg tablet
20 mg PO HS
metoprolol succinate [Toprol XL] 50 mg tablet extended release 24 hr
50 mg PO DAILY
acetaminophen [Tylenol] 325 mg Tablet
650 mg PO Q4HPRN PRN (Reason: mild pain)
therapeutic multivitamin Tablet
1 tab PO DAILY
calcium carbonate 500 mg calcium (1,250 mg) Tablet
500 mg PO DAILY
cholecalciferol (vitamin D3) [Vitamin D3] 25 mcg (1,000 unit) Tablet
25 mcg PO DAILY
Mounjaro 10 mg/0.5 mL Pen Injector
10 mg SC TH
Discharge Orders:
Discharge Patient (As Directed); Ordered 01/26/24
Ordered By: Kulwinder Winters
Discharge Date and Time
Discharge Date/Time: 01/26/24 14:38
Print Language: ARABIC
[2024-01-26] MEDS: NOVOLOG FLEXPEN-LOW RESISTANCE 2 UNITS SC (12:30)
[2024-01-26 13:45] VITALS: BP 147/65
--- NOTE | 2024-01-26 14:13 | PTCARENOTE ---
Rn patient coordinator front deskNahun Dillon texted Dr. Winters as patient requested a work note to only work six hours next week. Dr. Winters said patient has no restrictions.
== END 2024-01-26 14:38 | disposition home or self-care (01) | DRG 872 ==
LOC: 4 WEST ACU 12:08
PROVIDERS: Student in an Organized Health Care Education/Training Program; ADMITTING PHYSICIAN Internal Medicine; CONSULT PHYSICIAN Surgery; EMERGENCY PHYSICIAN Emergency Medicine; FAMILY PHYSICIAN Internal Medicine
PROC: 0X940ZZ Drainage of Right Axilla, Open Approach (ICD-10-PCS; 2024-01-24)
DX: A41.9 Sepsis, unspecified organism (principal); N39.0 Urinary tract infection, site not specified; L02.411 Cutaneous abscess of right axilla; L03.111 Cellulitis of right axilla; Z11.52 Encounter for screening for COVID-19; Z79.82 Long term (current) use of aspirin; E78.00 Pure hypercholesterolemia, unspecified
CPT/HCPCS: 71250; 74176; 80053; 81003; 81015; 82962; 83036; 83605; 84484; 85025; 87040; 87070; 87086; 87147; 87186; 87205; 87502; 87811; 93005; 96361; 96365; 96366; 96367; 96375; 99285

== ENCOUNTER 2024-04-01 11:36 | Inpatient (IN) | payer MEDICARE, SELFPAY ==
[2024-03-31 22:46] VITALS: BP 152/77
[2024-03-31 23:00] VITALS: BP 111/66
[2024-03-31 23:06] VITALS: BP 111/66
[2024-03-31 23:13] VITALS: BMI 29.7
[2024-03-31] MEDS: LOW STRENGTH ASPIRIN 243 MG PO (23:30)
[2024-03-31 23:36] LABS: % Basophils 0.4 % (0-2); % Eosinophils 2.2 % (0-6); % Immature Granulocytes 0.2 % (0-0.5); % Lymphocytes 32.1 % (20.5-51.1); % Neutrophils 56.1 % (42.2-75.2); Absolute Eosinophils 0.2 10^3/uL (0-0.7); Absolute Lymphocytes 2.7 10^3/uL (1.2-3.4); Absolute Monocytes 0.8 10^3/uL (0.1-0.6); Absolute Neutrophils 4.8 10^3/uL (1.4-6.5); Hematocrit 31.5 % (37.0-47.0); Hemoglobin 11.1 g/dL (12.0-16.0); Mean Corp Hgb Conc. 35.2 g/dL (33.0-37.0); Mean Corpuscular Hgb 31.6 pg (27.0-31.0); Mean Corpuscular Volume 89.7 fL (81.0-99.0); Mean Platelet Volume 9.3 fL (7.4-10.4); Nucleated Red Blood Cells % 0 %; Platelet Count 321 10^3/uL (130-400); Red Blood Cell Count 3.51 10^6/uL (4.20-5.40); Red Cell Dist. Width 13.1 % (11.5-14.5); White Blood Cell Count 8.5 10^3/uL (4.8-10.8)
[2024-04-01] VITALS (10 sets, daily range): BP systolic 120–154; BP diastolic 58–91; BMI 29.0; BMI 28.8
[2024-04-01] LABS: ALT (SGPT) 22 U/L (0-35); AST (SGOT) 24 U/L (14-36); Alkaline Phosphatase 57 U/L (38-126); Blood Urea Nitrogen 38 mg/dl (7-17); Calcium 9.6 mg/dl (8.4-10.2); Carbon Dioxide 27 mmol/L (22-30); Chloride 103 mmol/L (98-107); Estimated Creatinine Clearance 59 ml/min; Glucose 238 mg/dl (70-99); Potassium 3.9 mmol/L (3.5-5.1); Sodium 137 mmol/L (135-145); Total Bilirubin 0.3 mg/dl (0.2-1.3); Total Protein 6.4 g/dl (6.3-8.2); eGFR > 60.00
[2024-04-01 00:13] LABS: Troponin I < 0.012 ng/ml
--- NOTE | 2024-04-01 01:18 | ED.GENMED ---
History of Present Illness
General
Chief Complaint: Chest Pain
Source: patient
Time Seen by Provider: 03/31/24 22:53
History of Present Illness
History of Present Illness:
68yoF with a history of coronary artery disease s/p PCI, hypertension, hyperlipidemia, and type 2 diabetes presenting with her for evaluation of a chest pain. Patient was in bed around 9pm this evening. She reports a pain in her L shoulder
that woke her up from sleep. Pain radiates down to the L arm into the L chest. She reports associated nausea and diaphoresis. She took a dose of nitroglycerin with improvement. She continues to have mild L chest discomfort. She had similar symptoms
last year when she was diagnosed with an NSTEMI. Cardiac catheterization in July 2023 showed severe single-vessel (dominant circumflex) disease and a stent was placed.
Past History
Past History
ED Past Medical History: CAD, HTN, Hypercholesterolemia, NIDDM, [place], Psychiatric and Other (renal calc)
ED Past Surgical History: Cardiac, Gynecological, Orthopedic and Tonsilectomy
Social History
Tobacco: Non-smoker
Alcohol: Occasional
Drug: None
Personal:
Living: with family
Employment: Employed
Phy Exam
General Physical Exam
General Presentation: well appearing and no apparent distress
General age: appears stated age
General Skin: warm and dry
General Habitus: normal
General Mental: alert
Cardiovascular Exam
Cardiovascular Exam: regular rate/rhythm, no edema and no murmur
Pulmonary Exam
Pulmonary Exam: lungs clear, no respiratory distress, no crackles and no wheezing
Skin Exam
Skin Exam: normal color and warm/dry
Psychiatric Exam
Psychiatric Exam: normal mood/affect
Scores
Heart Score for Chest Pain Patients
STEMI patient?: No
History: Highly Suspicious
ECG: Significant ST-Depression
Age: >/= 65 years
Risk Factors: >/= 3 Risk Factors or History of CAD
Troponin: </= Normal Limit
Heart Score for Chest Pain Patients: 8
Heart Score Risk: 72.7 % MACE over next 6 weeks
Course
Orders/Labs/Results
Orders:
Orders
03/31/24 22:36
Electrocardiogram (*1) Urgent
Reason for Study: Chest Pain
EKG- Treatment ONCE
03/31/24 23:15
Cardiac Monitoring- Treatment ONCE
Aspirin Chewable [Low Strength Aspirin] 243 mg PO NOW STA
CR Chest - 2 Views Urgent
Comment:
Reason For Exam: CP
03/31/24 23:24
Complete Blood Count/With Diff Urgent
Comprehensive Metabolic Panel Urgent
Troponin I Urgent
03/31/24 23:59
EKG with chest pain [ECG as needed] As Directed
ECG as needed for:: Chest Pain
Abnormal Lab Results
03/31/24
23:24
RBC 3.51 L 10^6/uL
(4.20-5.40)
Hgb 11.1 L g/dL
(12.0-16.0)
Hct 31.5 L %
(37.0-47.0)
MCH 31.6 H pg
(27.0-31.0)
Absolute Monos (auto) 0.8 H 10^3/uL
(0.1-0.6)
BUN 38 H mg/dl
(7-17)
Glucose 238 H mg/dl
(70-99)
03/31/24 23:24
03/31/24 23:24
Vital Signs
Initial and Last Documented VS:
Initial Vital Signs
Temp Pulse Resp BP Pulse Ox
99.2 F 87 20 152/77 99
03/31/24 22:46 03/31/24 22:46 03/31/24 22:46 03/31/24 22:46 03/31/24 22:46
Last Documented Vital Signs
Temp Pulse Resp BP Pulse Ox
99.2 F 87 23 111/66 98
03/31/24 22:46 03/31/24 23:06 03/31/24 23:06 03/31/24 23:06 03/31/24 23:06
MDM/Problems Addressed
Differential Diagnosis Includes:
68yoF here with L chest and shoulder pain that woke her up from sleep this evening. Associated with nausea and diaphoresis. Improved with NTG. Hx of prior NSTEMI that felt similar. She is afebrile and hemodynamically stable. She is non-toxic
appearing. Exam is reassuring. Differential diagnosis includes but is not limited to: ACS, angina, musculoskeletal pain, doubt but consider aortic dissection
Initial ED plan: Check cardiac labs, EKG, and CXR. Aspirin load.
*EKG
Interpreted by ED Provider?: Yes
EKG Intrepretation Date: 04/01/24
Interpretation: abnormal
Heart Rate: 96
Rate: normal
Rhythm: sinus
[place]: normal axis
Interval: normal interval
QRS Pattern: normal QRS
Ischemia: other (ST depressions in I, aVL, V3-V5)
*Critical Care Note
Total Time (30-74mins, 75-104mins- exclusive of procedures): Not Applicable
Update Note
Update Note:
EKG shows NSR with new ST depressions in leads I, aVL, and V3-V5. Troponin is WNL. CXR appears clear. Patient continues to have mild L chest discomfort. Will admit for further management.
ED Attending Note
-
Portions of this chart may have been created with voice recognition software.� Occasional wrong word or��sound alike� substitutions may have occurred due to the inherent limitations of voice recognition software.
Discharge Plan
Departure
Patient Disposition: Admit
Date of Disposition: 04/01/24
Time of Disposition: 01:49
Presentation/result/management discussed w/ accepting MD/DO: Hospitalist
Discharge Problem:
Chest pain, Abnormal ECG
Prescriptions:
No Action
magnesium 250 mg Tablet
250 mg PO DAILY
lorazepam [Ativan] 0.5 mg Tablet
0.5 mg PO DAILYPRN PRN (Reason: panic attacks,anxiety)
nitroglycerin 0.4 mg tablet, sublingual
0.4 mg sublingual [id number] PRN (Reason: chest pain) Qty: 25 2RF
metformin 1,000 mg Tablet
1,000 mg PO DAILY
losartan 100 mg Tablet
100 mg PO DAILY
escitalopram oxalate [Lexapro] 20 mg Tablet
20 mg PO DAILY
aspirin 81 mg Tablet,Delayed Release (Dr/Ec)
81 mg PO DAILY
clopidogrel [Plavix] 75 mg Tablet
75 mg PO DAILY
rosuvastatin 20 mg tablet
20 mg PO HS
metoprolol succinate [Toprol XL] 50 mg tablet extended release 24 hr
50 mg PO DAILY
acetaminophen [Tylenol] 325 mg Tablet
650 mg PO Q4HPRN PRN (Reason: mild pain)
therapeutic multivitamin Tablet
1 tab PO DAILY
calcium carbonate 500 mg calcium (1,250 mg) Tablet
500 mg PO DAILY
cholecalciferol (vitamin D3) [Vitamin D3] 25 mcg (1,000 unit) Tablet
25 mcg PO DAILY
Mounjaro 10 mg/0.5 mL Pen Injector
12.5 mg SC TH
Referrals:
Senia Abbasi MD [Family Provider] -
Interventions
Interventions:
*Risk Screen - Suicide Last Done: 03/31/24 23:05
*General Assessment Last Done: 03/31/24 23:05
*Neglect/Abuse Screening Last Done: 03/31/24 23:05
ED- Fall Risk Assessment Last Done: 03/31/24 23:05
*ED COVID-19 Vaccine History Last Done: 03/31/24 23:05
ED- Cardiac Assessment Last Done: 03/31/24 23:05
Discharge Date and Time
Print Language: MALDIVIAN
--- NOTE | 2024-04-01 02:32 | HPS.HSE ---
Family Physician
-
Family Physician: Senia Abbasi
Chief Complaint
-
Chest pain
History of Present Illness
Patient is a 68y F with PMH significant for ASCVD, hypertension and DM-II who presents to ED complaining of chest pain. Patient states that she has been having L sided chest pain with radiation into the L arm for the past 3 days or so. Patient
reports associated nausea, diaphoresis and lightheadedness. She notes that her symptoms are similar to those she had with her prior PA (07/2023). Patient denies any recent illness including cough, fevers / chills, etc.
In the ED, patient complains of some 'heaviness' but states that her chest pain is improved from prior.
Patient had stenting of proximal and mid circumflex lesions during cath 07/18/23.
Medical History
Past Medical History
Past Medical History: Reports Other
Additional Past Medical History:
ASCVD
Hypertension
DM-II
Solitary Functioning Kidney
Xboms-Uriaahfhs-Fruvn Syndrome
Anxiety / Depression
Past Surgical History: Reports Other
Additional Past Surgical History:
PTCA with Stent
Lumbar Surgery x 3
T&A
CAROL
Tubal Ligation
Right Axillary Abscess I&D
Social History
Tobacco: Non-smoker
Alcohol: Occasional
Drug: Marijuana (Daily THC use.)
Family History
Family History: Other (Father: CAD, DM Brother: DM, Cancer)
Allergies / Home Medications
Allergies reflects when Allergies were last updated in [facility].
Home Medications with original date entered in [facility]
Allergy/Medication List:
Allergies
Allergy/AdvReac Type Severity Reaction Status Date / Time
sulfamethoxazole Allergy Vomiting Verified 03/31/24 22:46
[From Bactrim]
trimethoprim [From Bactrim] Allergy Vomiting Verified 03/31/24 22:46
Home Medications
lorazepam 0.5 mg tablet (Ativan) 0.5 mg PO DAILYPRN PRN panic attacks,anxiety 07/18/23
magnesium 250 mg tablet 250 mg PO DAILY Electrolyte Repletion 07/18/23
aspirin 81 mg tablet,delayed release 81 mg PO DAILY Blood Clot Prevention/Tx 07/20/23
escitalopram oxalate 20 mg tablet (Lexapro) 20 mg PO DAILY depression/anxiety 07/20/23
losartan 100 mg tablet 100 mg PO DAILY Blood Pressure 07/20/23
metformin 1,000 mg tablet 1,000 mg PO DAILY Diabetes 07/20/23
nitroglycerin 0.4 mg sublingual tablet 0.4 mg sublingual [id number] PRN chest pain #25 tabs 07/20/23
acetaminophen 325 mg tablet (Tylenol) 650 mg PO Q4HPRN PRN mild pain 01/24/24
calcium carbonate 500 mg PO DAILY Supplement 01/24/24
cholecalciferol (vitamin D3) 25 mcg (1,000 unit) tablet (Vitamin D3) 25 mcg PO DAILY Supplement 01/24/24
clopidogrel 75 mg tablet (Plavix) 75 mg PO DAILY Blood Clot Prevention/Tx 01/24/24
metoprolol succinate 50 mg tablet,extended release 24 hr (Toprol XL) 50 mg PO DAILY Blood Pressure 01/24/24
rosuvastatin 20 mg tablet 20 mg PO HS High Cholesterol 01/24/24
therapeutic multivitamin 1 tab PO DAILY Supplement 01/24/24
tirzepatide 10 mg/0.5 mL subcutaneous pen injector (Mounjaro) 12.5 mg SC TH Diabetes 01/24/24
Review of Systems
-
History Source: Patient
A 12 point ROS was completed and negative except as noted: Yes
Constitutional: Reports Fatigue; Denies Fever or Chills
EENT: Denies Sore Throat
Respiratory: Reports Trouble Breathing; Denies Cough
Cardiac: Reports Chest Pain and Diaphoresis; Denies Palpitations or Syncope
Abdomen/GI: Reports Nausea; Denies Abdominal Pain, Vomiting, Diarrhea or Constipated
: Denies Dysuria, Frequency or Flank Pain
Neurological: Denies Dizzy or Headache
Psych: Denies Depression or Anxiety
Physical Exam
Vital Signs
Vital Signs
Temp Pulse Resp BP Pulse Ox
99.2 F 87 23 111/66 98
03/31/24 22:46 03/31/24 23:06 03/31/24 23:06 03/31/24 23:06 03/31/24 23:06
Physical Exam
General: Other (68y F in no acute distress.)
HEENT: Moist mucous membranes and PERRLA
Respiratory: Clear; No Wheezes, Rales or Rhonchi
Cardiac: S1/S2 and Regular Rhythm; No Murmur
GI: Soft, Non Tender, Non Distended and Normal Bowel Sounds
Musculoskeletal: No Clubbing, No Cyanosis and No Edema
Neuro: AO x 3
Laboratory Results
-
03/31/24 23:24
03/31/24 23:24
Laboratory Results
Total Bilirubin 0.3 mg/dl (0.2-1.3) 03/31/24 23:24
AST 24 U/L (14-36) 03/31/24 23:24
ALT 22 U/L (0-35) 03/31/24 23:24
Alkaline Phosphatase 57 U/L (38-126) 03/31/24 23:24
Troponin I < 0.012 ng/ml 03/31/24 23:24
Impression/Plan
-
A/P: Patient is a 68y F with PMH significant for ASCVD, HTN and DM-II who presents to ED complaining of chest pain.
Chest Pain
ASCVD
- Observe overnight for further evaluation and treatment.
- Patient with typical symptoms of chest heaviness, arm discomfort, dyspnea, diaphoresis, etc.
- EKG with ST - T wave changes in the lateral leads compared to prior.
- Troponin is undetectable on initial set and symptoms present now for several days.
- Continue current CV med regimen including ASA, statin, etc.
- Follow for any worsening / recurrent chest pain.
- Cardiology evaluation in the AM for additional recommendations.
- Continue to follow troponin x 3 sets total or to peak.
Benign Hypertension
- Stable. Continue outpatient med regimen with holding parameters.
DM-II
- Stable. Hold outpatient medications acutely.
- Follow glucose and cover with SSI as needed.
- Update A1C.
Anxiety / Depression
- Stable. Continue Lexapro.
DVT Prophylaxis: Subcut Heparin
Code Status: Full
[2024-04-01 04:25] LABS: Hematocrit 33.5 % (37.0-47.0); Hemoglobin 11.6 g/dL (12.0-16.0); Mean Corp Hgb Conc. 34.6 g/dL (33.0-37.0); Mean Corpuscular Hgb 31.7 pg (27.0-31.0); Mean Corpuscular Volume 91.5 fL (81.0-99.0); Mean Platelet Volume 8.9 fL (7.4-10.4); Platelet Count 330 10^3/uL (130-400); Red Blood Cell Count 3.66 10^6/uL (4.20-5.40)
[2024-04-01 04:45] LABS: Iron 63 ug/dl (37-170)
[2024-04-01 04:47] LABS: Blood Urea Nitrogen 34 mg/dl (7-17); Calcium 9.8 mg/dl (8.4-10.2); Carbon Dioxide 30 mmol/L (22-30); Chloride 104 mmol/L (98-107); Estimated Creatinine Clearance 64 ml/min; Glucose 193 mg/dl (70-99); HDL Cholesterol 54 mg/dl; LDL Cholesterol, Calculated 47 mg/dl; Potassium 4.3 mmol/L (3.5-5.1); Sodium 140 mmol/L (135-145); Total Cholesterol 126 mg/dl (50-199); Triglyceride 128 mg/dl (10-149); Very Low Density Lipoprotein 25 mg/dl (0-30); eGFR > 60.00
[2024-04-01 04:54] LABS: Percent Saturation 19 % (20-50); Total Iron Binding Capacity 328 ug/dl (265-497)
[2024-04-01 04:57] LABS: Troponin I 0.036 ng/ml
--- NOTE | 2024-04-01 05:36 | PTCARENOTE ---
Pt admitted to unit from ED. Pt ambulated self to bed. Pt denies chest pain. Pt reports 1/10 to 2/10 pain of left shoulder; 'it's sore. I don't know if it's from the bed. I just woke up.' AAXO3. VS: Temp 97.5, Pulse 91, BP 150/82, Resp rate 16, and
O2 98 on RA. Pt oriented to room with call leung in reach.
Plan of care ongoing.
04:57 troponin 0.036. Pt denies chest pain. Pt reports 1/10 left shoulder pain. Notified covering HAND STONER. No new orders at this time. Plan of care ongoing.
[2024-04-01 06:41] LABS: Glucose - Point of Care 188 mg/dl (70-99)
[2024-04-01] MEDS: NOVOLOG FLEXPEN-LOW RESISTANCE 1 UNITS SC (07:14)
[2024-04-01] MEDS: ASPIR LOW (ENTERIC COATED) 81 MG PO (08:51)
[2024-04-01] MEDS: LEXAPRO 20 MG PO (08:51)
[2024-04-01] MEDS: TOPROL XL 50 MG PO (08:51)
[2024-04-01] MEDS: HEPARIN 5000 UNITS SC (08:51)
[2024-04-01] MEDS: COZAAR 100 MG PO (08:51)
--- NOTE | 2024-04-01 09:14 | CON.CAR ---
Addendum entered and electronically signed by Gerard Lara MD 04/01/24 10:35:
I saw and examined the patient.
The DREDGE [employer] HAND's note was reviewed and I agree with the note.
68-year-old woman history of coronary artery disease, non-ST PA and stenting of ostial and mid left circumflex 07/2023, hypertension, diabetes, hypercholesterolemia and musculoskeletal left shoulder discomfort who has had intermittent left shoulder
discomfort for weeks symptoms are mild and random and last minutes. However last night she had left upper chest left shoulder discomfort but had radiation down her arm which reminded her of prior PA. She took a nitroglycerin at home with prompt
relief and then when it recurred took a second nitroglycerin again with relief she presented to the hospital she has had some intermittent left shoulder discomfort but has not had recurrence of the radiation down her arm. She had another
nitroglycerin this morning and states she had some improvement. Second troponin with mild elevation to 0.036 raising concern that recurrent shoulder discomfort radiating down the left arm represents angina/ACS in patient with known coronary artery
disease
-Continue dual antiplatelet therapy
-IV heparin
-IV nitroglycerin
-Transfer to IVU
-Serial troponins
-If symptoms remain stable on medical therapy then would plan for catheterization on Wednesday. If patient has issues with refractory symptoms despite medical therapy then would consider catheterization sooner
Original Note:
Consultation
Consultation Request
Date/Time Consultation Requested: 04/01/24 4a
Date/Time Consultation Performed: 04/01/24 9a
Requesting Provider: Dr. Valentine
Performing Provider: JEYSON Dubon for Dr. Lara
Reason for Consultation: chest pain
Medical History
-
Chief Complaint: chest pain
History of Present Illness:
Mrs. Steinberg is a 68 yo female with CAD s/p NSTEMI 07/18/23 s/p REINALDO to ostial/proximal mid LCX, HTN, HLD and DM, who presents to the ER with c/o left shoulder pain intermittent for 2 weeks. There is radiation of pain down her left arm to left elbow
and associated chest heaviness. Last night the left shoulder pain occurred while lying in bed, relieved with SL NTG, pain returned 10 mins later and again relieved with SL NTG and she came to the ER. Pain has been occurring intermittently for 2
weeks, not worse with exertion. This is her anginal equivalent she had prior to PCI 07/2023. She had been on ASA and Plavix (initially on Brilinta but switched to Plavix 11/[address] Triplett due to excessive bruising), she reports compliance with
medications. Initial troponin <0.012, 0.036. EKG SR [address]/T wave abn. Currently she c/o left shoulder pain.
Past Medical History
Past Medical History: Other (as above)
Past Surgical History: Other (as above)
Social History
Tobacco: Former Smoker
Alcohol: Occasional
Personal:
Living: With Family
Family History
Family History: Reviewed & Not Pertinent
Allergies / Home Medications
Allergy/AdvReac Type Severity Reaction Status Date / Time
sulfamethoxazole Allergy Vomiting Verified 03/31/24 22:46
[From Bactrim]
trimethoprim [From Bactrim] Allergy Vomiting Verified 03/31/24 22:46
�Medication �Instructions �Recorded �Confirmed �Type
lorazepam 0.5 mg tablet (Ativan) 0.5 mg PO DAILYPRN PRN panic 07/18/23 03/31/24 History
attacks,anxiety
magnesium 250 mg tablet 250 mg PO DAILY Electrolyte 07/18/23 04/01/24 History
Repletion
aspirin 81 mg tablet,delayed 81 mg PO DAILY Blood Clot 07/20/23 04/01/24 History
release Prevention/Tx
escitalopram oxalate 20 mg tablet 20 mg PO DAILY depression/anxiety 07/20/23 04/01/24 History
(Lexapro)
losartan 100 mg tablet 100 mg PO DAILY Blood Pressure 07/20/23 04/01/24 History
metformin 1,000 mg tablet 1,000 mg PO DAILY Diabetes 07/20/23 04/01/24 History
nitroglycerin 0.4 mg sublingual 0.4 mg sublingual [id number] PRN 07/20/23 04/01/24 Rx
tablet chest pain #25 tabs
acetaminophen 325 mg tablet 650 mg PO Q4HPRN PRN mild pain 01/24/24 03/31/24 History
(Tylenol)
calcium carbonate 500 mg PO DAILY Supplement 01/24/24 04/01/24 History
cholecalciferol (vitamin D3) 25 25 mcg PO DAILY Supplement 01/24/24 04/01/24 History
mcg (1,000 unit) tablet (Vitamin
D3)
clopidogrel 75 mg tablet (Plavix) 75 mg PO DAILY Blood Clot 01/24/24 04/01/24 History
Prevention/Tx
metoprolol succinate 50 mg 50 mg PO DAILY Blood Pressure 01/24/24 04/01/24 History
tablet,extended release 24 hr
(Toprol XL)
rosuvastatin 20 mg tablet 20 mg PO HS High Cholesterol 01/24/24 04/01/24 History
therapeutic multivitamin 1 tab PO DAILY Supplement 01/24/24 04/01/24 History
tirzepatide 10 mg/0.5 mL 12.5 mg SC TH Diabetes 01/24/24 04/01/24 History
subcutaneous pen injector
(Mounjaro)
Review of Systems
-
History Source: Patient
All other systems: Negative unless noted
Physical Exam
Vital Signs
Temp Pulse Resp BP Pulse Ox
97.7 F 85 16 145/69 97
04/01/24 07:00 04/01/24 07:00 04/01/24 07:00 04/01/24 07:00 04/01/24 07:00
Lab Results
04/01/24 04:16
04/01/24 04:16
Troponin I 0.036 ng/ml H* D 04/01/24 04:16
Physical Exam
General: Well Developed and Well Nourished
HEENT: Normocephalic, Anicteric and Moist Mucous Membranes
Respiratory: Clear and Non Labored Respirations
Cardiac: S1/S2 and Regular Rhythm
Breast: Deferred by me
GI: Soft, Non Tender, Non Distended and Normal Bowel Sounds
Rectal: Deferred by Provider
Genito-urinary: No Costovertebral Tender
Musculoskeletal: No Clubbing, No Cyanosis, No Edema and Other (left shoulder pain with and without palpation)
Skin: Warm and Dry
Neuro: AO x 3
Hematologic/Lymphatic: No Lymphadenopathy
Psych: Calm
Impression / Plan
-
Left shoulder pain/chest heaviness - intermittent for 2 weeks.
- this is her anginal equivalent.
- relieved with SL NTG x 2 last night.
- c/o pain now, will give SL NTG, IV Heparin and Plavix now.
- continue ASA.
- trend troponin to peak.
- EKG with ST/T wave abn.
CAD - s/p NSTEMI 07/18/23 s/p REINALDO to ostial/proximal mid LCX.
- compliant with ASA and Plavix.
- symptoms as above.
HTN - stable.
- continue meds and monitor.
HLD - on Crestor with LDL 47.
DM - per Dr. Abbasi.
- on Mounjaro and Metformin
- per hospitalist.
Data Reviewed
-
EKG: Tracing Personally Visualized and interpreted (NSR [address]/T wave abn)
Radiology: Report Reviewed by me (CXR: NAD)
Medical Tests (Nuc Med, Echo etc): Report Reviewed by me (07/2023: EF 60-65%, mild cLVH with inferior and inferolateral HK, mild-mod MR)
Labs: Labs Reviewed by me
Old Records: Reviewed
[2024-04-01] MEDS: NITROSTAT (SUBLINGUAL) 0.4 MG SL (09:15)
--- NOTE | 2024-04-01 09:25 | PTCARENOTE ---
Addendum entered by Rosemary Chase RN 04/01/24 10:06:
report called to IVU. heparin drip to be started on 4W prior to transfer
Original Note:
at the start of the shift pt denied chest pain or any other pain. Cardiology RE[employer] ASSET MANAGER Katie Jolly then at bedside and pt complained of left shoulder pain. SL nitro given per order. 5 minutes later pt states pain is gone. Plavix ordered. PTT and
troponin drawn. Heparin drip to be started. Pt to be transferred to IVU. Pt updated on all orders and transfer. She is very emotional and tearful. Emotional support provided.
[2024-04-01] MEDS: PLAVIX 75 MG PO (09:28)
[2024-04-01 10:00] LABS: APTT 28.5 Sec (23.4-35.0)
[2024-04-01 10:10] LABS: Troponin I 0.029 ng/ml
[2024-04-01] MEDS: HEPARIN 25000 UNITS/250 ML IV (10:27)
--- NOTE | 2024-04-01 11:00 | PTCARENOTE ---
Received patient as a transfer into room 7496. Pt AAOx3, without complaints, VSS. Pt denies CP at this time. Heparin gtt running at 950 units/hr via PIV in R AC, handoff validation with transferring RN Rosemary. Oriented patient to room,call leung
system and IVU policies/procedures. Pt verbalized understanding. Encouraged pt to verbalize questions. Family at bedside. Labs/orders reviewed. Will continue to monitor.
[2024-04-01] MEDS: TYLENOL 650 MG PO (12:36)
[2024-04-01 12:38] LABS: Glucose - Point of Care 173 mg/dl (70-99)
[2024-04-01] MEDS: NOVOLOG FLEXPEN-LOW RESISTANCE SC ×2 (13:28→17:45)
--- NOTE | 2024-04-01 13:29 | PTCARENOTE ---
VSS, NSR on monitoring manager. Heparin gtt infusing at 950 units/hr without complications. Pre meal accu check 173- pt refused insulin because she does not take it at home. Educated patients on the purpose of insulin coverage, pt still refusing. Will
continue to monitor.
--- NOTE | 2024-04-01 13:42 | W.PN.UPDATE ---
Update Note
Progress Note Update
Patient seen and examined after post midnight admission. Currently chest pain-free. Vital signs stable. No acute distress, regular rate and rhythm, normal S1-S2. Clear to auscultation bilaterally. Cranial nerves II to XII are intact. Continue
to trend troponin. Continue heparin drip. So far has not required nitroglycerin drip. Possible cardiac catheterization on Wednesday.
[2024-04-01 16:32] LABS: APTT 57.9 Sec (23.4-35.0)
[2024-04-01 16:50] LABS: Troponin I 0.034 ng/ml
[2024-04-01 17:08] LABS: Glucose - Point of Care 141 mg/dl (70-99)
[2024-04-01] MEDS: PHATP 1 UNIT PO (19:08)
[2024-04-01] MEDS: CRESTOR 20 MG PO (22:22)
[2024-04-01 22:30] LABS: Glucose - Point of Care 143 mg/dl (70-99)
[2024-04-01 23:16] LABS: APTT 92.1 Sec (23.4-35.0)
[2024-04-01 23:28] LABS: Troponin I 0.026 ng/ml
[2024-04-02] VITALS (8 sets, daily range): BP systolic 119–140; BP diastolic 58–79; BMI 28.8
--- NOTE | 2024-04-02 00:29 | PTCARENOTE ---
Pt. has had no complaints of CP or left shoulder pain so far this shift, VSS, NSR on the monitor. Heparin gtt infusing at 1150 units/hr, last PTT therapeutic. Troponin trended down to 0.026. Pt. sleeping.
[2024-04-02 07:31] LABS: Glucose - Point of Care 185 mg/dl (70-99)
[2024-04-02] MEDS: NOVOLOG FLEXPEN-LOW RESISTANCE SC ×3 (07:43→17:32)
--- NOTE | 2024-04-02 07:43 | W.PN.HOSP.TC ---
Today's Communication/Plan
-
see bold
Assessment / Plan
Assessment / Plan
Gen: NAD, AAOx3.
Eyes: EOMI, PERRLA, no scleral icterus.
Neck: supple.
CV: RRR, +S1/S2, no m/r/g.
Resp: CTAB, no rales, wheezes, or rhonchi.
Abd: +BS, soft, NT, ND
Skin: No rashes.
Neuro: CN 2-12 intact, non-focal.
Psych: Normal mood and affect.
Unstable angina:
-Peak trop 0.036
-cont heparin gtt
-cont ASA/BB/statin/Plavix
-NTG PRN
-cath tomorrow
Essential HTN:
-cont BB/ARB
DM2:
-SSI/accuchecks
Anxiety/Depression:
-Cont Lexapro
FULL/Heparin gtt
Anticipated Discharge: 24 - 48 hours
Subjective/Interval History
-
Date of Service: April 02, 2024
Denies CP.
Objective Data
-
Labs:
Laboratory Results
04/01/24 04/02/24
22:56 04:47
APTT 92.1 H 100.0 H
Vital Signs:
Vital Signs
Temp Pulse Resp BP Pulse Ox
97.8 F 80 20 122/58 98
04/02/24 04:37 04/02/24 05:00 04/02/24 04:37 04/02/24 04:35 04/02/24 04:37
I&O
04/01/24 04/02/24 04/03/24
06:59 06:59 06:59
Intake Total 480 / 480
Balance 480 / 480
[2024-04-02] MEDS: COZAAR 100 MG PO (08:28)
[2024-04-02] MEDS: PLAVIX 75 MG PO (08:28)
[2024-04-02] MEDS: ASPIR LOW (ENTERIC COATED) 81 MG PO (08:29)
[2024-04-02] MEDS: LEXAPRO 20 MG PO (08:29)
[2024-04-02] MEDS: TOPROL XL 50 MG PO (08:29)
[2024-04-02] MEDS: HEPARIN 25000 UNITS/250 ML IV (08:56)
--- NOTE | 2024-04-02 09:02 | W.PN.CD ---
Today's Communication / Plan
-
Continue current therapy
Plan for cardiac catheterization 04/03/2024
Note that but metformin will need to be held for 48 hours post catheterization
Impression / Plan
-
Left shoulder pain/chest heaviness -challenging evaluation since she has some musculoskeletal left shoulder discomfort. She has had intermittent shoulder symptoms and chest symptoms for couple weeks but on presentation she also had left arm
discomfort which reminded her of symptoms prior to [place]. Seem to have improvement with nitrates.
No recurrent symptoms overnight
-Peak troponin 0.034
-Continue DAPT
-Continue IV heparin
-If recurrent symptoms IV nitro
-Plan for catheterization 04/03/2024
CAD - s/p NSTEMI 07/18/23 s/p REINALDO to ostial/proximal mid LCX.
- compliant with ASA and Plavix.
-Reassessment with cath as noted above
HTN - stable.
- continue meds and monitor.
HLD - on Crestor with LDL 47.
DM - per Dr. Abbasi.
- on Mounjaro and Metformin
- per hospitalist.
Physical Exam
Vital Signs/Labs
Vital Signs
Temp Pulse Resp BP Pulse Ox
98.2 F 87 18 140/60 99
04/02/24 08:10 04/02/24 08:29 04/02/24 08:10 04/02/24 08:29 04/02/24 08:10
04/01/24 04/02/24 04/03/24
06:59 06:59 06:59
Actual Weight 78.982 kg 78.6 kg
04/01/24 04:16
04/01/24 04:16
APTT 100.0 Sec (23.4-35.0) H 04/02/24 04:47
Triglycerides 128 mg/dl (10-149) 04/01/24 04:16
LDL Cholesterol, Calc 47 mg/dl 04/01/24 04:16
VLDL Cholesterol, Calc 25 mg/dl (0-30) 04/01/24 04:16
HDL Cholesterol 54 mg/dl 04/01/24 04:16
LAB Results
03/31/24 04/01/24 04/01/24
23:24 04:16 09:18
Troponin I < 0.012 0.036 H* D 0.029
04/01/24 04/01/24
16:00 22:56
Troponin I 0.034 0.026
Physical Exam
Constitutional: No acute distress
Cardiovascular: Rhythm & rate is regular
Respiratory: Respiratory effort normal
GI: Soft
Neuro/Psych: Alert
Data Reviewed
-
Date of Service: April 02, 2024
Medical Decision Making: Reviewed Test Results
EKG: Report Reviewed by me
X-Ray/CT/US/MRI/NUC/PET: Report Reviewed by me
Medical Tests (PFT, Pathology etc): Report Reviewed by me
Labs: Labs Reviewed by me
[2024-04-02 09:53] LABS: % Basophils 0.6 % (0-2); % Eosinophils 1.9 % (0-6); % Immature Granulocytes 0.1 % (0-0.5); % Monocytes 6.6 % (1.7-9.3); % Neutrophils 62.8 % (42.2-75.2); Absolute Eosinophils 0.1 10^3/uL (0-0.7); Absolute Monocytes 0.5 10^3/uL (0.1-0.6); Absolute Neutrophils 4.4 10^3/uL (1.4-6.5); Hematocrit 33.4 % (37.0-47.0); Hemoglobin 11.7 g/dL (12.0-16.0); Mean Corpuscular Hgb 31.5 pg (27.0-31.0); Mean Corpuscular Volume 89.8 fL (81.0-99.0); Mean Platelet Volume 9.3 fL (7.4-10.4); Nucleated Red Blood Cells % 0 %; Platelet Count 301 10^3/uL (130-400); Red Blood Cell Count 3.72 10^6/uL (4.20-5.40); Red Cell Dist. Width 12.9 % (11.5-14.5)
--- NOTE | 2024-04-02 10:37 | PTCARENOTE ---
received patient this am. AAO x 3, pleasant, pain free. monitor shows NSR, VSS. IV heparin @ 1150units/hr via right ant. patient remains on modified contact. reviewed plan of care for day, patient has no questions or concerns.
[2024-04-02 12:50] LABS: Glucose - Point of Care 161 mg/dl (70-99)
--- NOTE | 2024-04-02 14:03 | PTCARENOTE ---
Assumed care of patient. Agree with previous assessment. Call light in reach VSS. Heparin infusing per protocol. Reviewed plan of care with patient. Will continue to monitor.
[2024-04-02 17:31] LABS: Glucose - Point of Care 146 mg/dl (70-99)
[2024-04-02] MEDS: CRESTOR 20 MG PO (23:11)
[2024-04-02 23:16] LABS: Glucose - Point of Care 182 mg/dl (70-99)
[2024-04-03] VITALS (12 sets, daily range): BP systolic 101–150; BP diastolic 57–110; BMI 28.5
--- NOTE | 2024-04-03 03:42 | PTCARENOTE ---
Assumed care of pt at change of shift, pt on monitor and storage bin tender in normal sinus rhythm with occasional PVC's and HR in the 70's. Pt aware of NPO status for possible cath on 04/03. IV heparin ggt still infusing at 11.5 mL's per hour. Pt denies any pain
and agreeable to report pain when present. Pt with call leung in reach. Plan of care ongoing
[2024-04-03 04:45] LABS: Hematocrit 36.1 % (37.0-47.0); Hemoglobin 12.6 g/dL (12.0-16.0); Mean Corp Hgb Conc. 34.9 g/dL (33.0-37.0); Mean Corpuscular Hgb 31.7 pg (27.0-31.0); Mean Corpuscular Volume 90.9 fL (81.0-99.0); Mean Platelet Volume 9.2 fL (7.4-10.4); Platelet Count 300 10^3/uL (130-400); Red Blood Cell Count 3.97 10^6/uL (4.20-5.40); Red Cell Dist. Width 12.7 % (11.5-14.5); White Blood Cell Count 7.8 10^3/uL (4.8-10.8)
[2024-04-03 04:57] LABS: APTT 84.2 Sec (23.4-35.0)
[2024-04-03] MEDS: HEPARIN 25000 UNITS/250 ML IV (07:07)
[2024-04-03 08:01] LABS: Glucose - Point of Care 213 mg/dl (70-99)
[2024-04-03] MEDS: ASPIR LOW (ENTERIC COATED) 81 MG PO (08:24)
[2024-04-03] MEDS: TOPROL XL 50 MG PO (08:24)
[2024-04-03] MEDS: LEXAPRO 20 MG PO (08:24)
[2024-04-03] MEDS: PLAVIX 75 MG PO (08:24)
[2024-04-03] MEDS: COZAAR 100 MG PO (08:24)
[2024-04-03] MEDS: NOVOLOG FLEXPEN-LOW RESISTANCE 2 UNITS SC ×2 (09:15→17:44)
--- NOTE | 2024-04-03 09:50 | W.PN.CD ---
Today's Communication / Plan
-
Cardiac catheterization today to clarify coronary anatomy.
Impression / Plan
-
Impression/Plan: 68 y/o female with HTN, HLD, NIDDM and CAD s/p prior PCI to the ostial/proximal and mid LCx (07/2023) admitted with left sided shoulder pain/chest heaviness and one low level (altamirano zone) troponin.
#Left shoulder pain/chest heaviness
-Acute, resolved.
-Challenging evaluation since she has some musculoskeletal left shoulder discomfort. She has had intermittent shoulder symptoms and chest symptoms for couple weeks but on presentation she also had left arm discomfort which reminded her of symptoms
prior to [place]. Seem to have improvement with nitrates.
-Peak troponin 0.034.
-Continue DAPT.
-Continue IV heparin.
-Cardiac catheterization today to clarify coronary anatomy.
#CAD
-s/p NSTEMI, PCI of ostial/proximal and mid LCx (Xience Skypoint 4.0 x 28 REINALDO), 07/18/23.
-Continue DAPT, metoprolol, rosuvastatin.
-Coronary angiography as noted.
#HTN
-Chronic, stable.
-Continue metoprolol, losartan.
#HLD
-Chronic, stable.
-Total cholesterol = 126, LDL = 47, HDL = 54, Triglycerides = 128.
-Continue rosuvastatin 20 mg daily.
#DM
-Chronic, stable.
-Continue tirzepitide and metformin.
-Inpatient management per hospitalist.
Subjective/Interval History:
No acute events.
No subjective complaints.
Physical Exam
Vital Signs/Labs
Vital Signs
Temp Pulse Resp BP Pulse Ox
36.5 C 77 20 136/70 99
04/03/24 07:47 04/03/24 08:24 04/03/24 07:47 04/03/24 08:24 04/03/24 07:47
04/01/24 04/02/24 04/03/24
11:59 11:59 11:59
Actual Weight 78.6 kg 77.8 kg
04/03/24 04:36
04/01/24 04:16
APTT 84.2 Sec (23.4-35.0) H 04/03/24 04:36
Triglycerides 128 mg/dl (10-149) 04/01/24 04:16
LDL Cholesterol, Calc 47 mg/dl 04/01/24 04:16
VLDL Cholesterol, Calc 25 mg/dl (0-30) 04/01/24 04:16
HDL Cholesterol 54 mg/dl 04/01/24 04:16
LAB Results
03/31/24 04/01/24 04/01/24
23:24 04:16 09:18
Troponin I < 0.012 0.036 H* D 0.029
04/01/24 04/01/24
16:00 22:56
Troponin I 0.034 0.026
Physical Exam
Constitutional: No acute distress and Comfortable
EENT: Anicteric and Moist mucous membranes
Cardiovascular: Rhythm & rate is regular, Pedal edema is absent, JVD pressure is normal, S1S2 is normal and Murmur/rub/gallop absent
Respiratory: Respiratory effort normal, Lungs clear to auscul., Wheeze Absent, Crackles Absent and Rhonchi Absent
GI: Soft, Distention absent, Flat, Non tender and Normal bowel sounds
Neuro/Psych: AO x 3
Data Reviewed
-
Date of Service: April 03, 2024
Medical Decision Making: Reviewed Test Results, Independent Historian Assessment, Test Interpretation and Review of Case with other Provider
EKG: Tracing Personally Visualized and interpreted and Report Reviewed by me
X-Ray/CT/US/MRI/NUC/PET: Image Personally Visualized and interpreted and Report Reviewed by me
Medical Tests (PFT, Pathology etc): Image Personally Visualized and interpreted and Report Reviewed by me
Labs: Labs Reviewed by me
Old Records: Reviewed
--- NOTE | 2024-04-03 11:00 | ITS.CL.CATH ---
Edger Operator - Catheterization
Cardiac Catheterization
Procedure Report:
CARDIAC CATHETERIZATION REPORT
Date of Procedure: 04/03/2024
Referring: Gerard Lara M.D.
INDICATION: Known coronary artery disease, angina with osuna zone troponin.
PROCEDURE:
1. Left heart catheterization.
2. Coronary angiography.
3. Successful IFR of the LAD.
ACCESS:
6 Portuguese right radial artery.
CATHETERS:
1. 5 Portuguese JR4.
2. 5 Portuguese JL 3.5.
3. 6 Portuguese EBU 3.5 guiding catheter.
HEMODYNAMIC DATA
Weight (kg): 77.6
AO (s/d/x, mmHg): 96/59/73
LV (s/x mmHg): 97/10
LEFT VENTRICULOGRAPHY: Not performed.
CORONARY ANGIOGRAPHY
Dominance: Left.
Left Main: Normal size, bifurcating vessel with some modest tapering of the distal margin.
LAD: Normal size vessel giving rise to 2 significant diagonals. There is a 30%, densely calcified lesion in the ostium of the vessel. There is a 40% lesion in the mid vessel, proximal to the origin of the second diagonal. There is a 50-60%
lesion of the mid/distal LAD.
Ramus: Congenitally absent.
Circumflex: Large size, dominant vessel giving rise to a single large obtuse marginal before traversing the AV groove and becoming the LPDA. A patent stent is visible in the proximal circumflex, with 1�2 stent cells protruding into the left main
coronary artery. There is a 90% in-stent restenosis lesion in the proximal margin of the stent. The AV groove circumflex is chronically totally occluded immediately after the origin of the obtuse marginal. The LPDA is supplied by collaterals from
the LAD and marginal.
RCA: Small size, nondominant vessel. There is no coronary artery disease.
INTERVENTION(S)
1. Successful IFR of the serial LAD lesions, demonstrating occlusive disease (IFR = 0.84).
Narrative:
The decision was made to perform physiologic testing. The diagnostic catheter was removed over a wire and exchanged for a(n) 6 Portuguese EBU 3.5 guiding catheter. The guiding catheter was advanced into the ascending aorta and seated in the left main
coronary artery. Additional heparin was given to obtain an ACT greater than 250 seconds. An iFR wire was zeroed outside of the body, then inserted into the guiding sheath. The wire was advanced and the transducer was normalized just outside of the
guiding catheter tip. The wire was advanced into the distal LAD. Three iFR measurements were taken. The lesion was determined to be occlusive (0.73). On pullback, the wire was noted to have experienced significant drift with a PD/PA of 0.92 at the
catheter tip. The wire was renormalized and IFR was performed again, however significant drift was again present on pullback. This IFR was discarded and a second IFR wire was advanced. Once again, the wire was zeroed outside of the body and
normalized when the pressure sensor was near the catheter tip. The wire was advanced into the mid LAD, beyond the 40% mid LAD lesion. This lesion, which was previously believed to be occlusive, was remeasured at 0.95 (nonocclusive). The wire was
readvanced into the more distal lesion. 3 iFR measurements were obtained, demonstrating occlusive disease (0.84). On pullback, the wire demonstrated significant step ups at all 3 LAD lesions with the mid LAD lesion now registering as borderline
(0.91). PD/PA at the catheter tip was normal at 1.0.
Closure Device: Vascular band.
Radiation (mGy): 551.42
DAP (cm2.Gy): 55.15
Fluoroscopy time (minutes): 10.8
Sedation time (minutes): 52
CONCLUSIONS
1. Left dominant circulation with critical, 90% in-stent restenosis of the ostial/proximal circumflex stent, a chronic total occlusion of the LPDA, and moderate, occlusive tandem lesions in the LAD (30% ostial, 40% mid and 50-60% mid/distal, IFR =
0.84).
2. Normal filling pressures (LVEDP = 10 mmHg at 77.6 kg).
RECOMMENDATIONS:
1. Expectant management after cardiac catheterization via right radial approach.
2. Limited weight bearing on the right wrist for one week.
3. Given the occlusive nature of the tandem LAD lesions, the chronic total occlusion of the LPDA and the critical stenosis of the ostial circumflex, I think it is reasonable to pursue surgical opinion, particularly given her history of diabetes.
One of my primary concerns is jailing the LAD given the location of the in-stent restenosis and the fact that we will not have given her complete revascularization.
4. Hold clopidogrel at this time pending surgical evaluation.
5. Restart heparin after radial band has been successfully removed.
6. Echocardiogram ordered and pending.
Copy to: Gerard Lara M.D., Woo Triplett M.D., Senia Abbasi M.D.
Francis Ying DO, FACC, FACP
--- NOTE | 2024-04-03 11:11 | CM ---
Chart reviewed. Patient is in the foundry laborer coreroom. Patient's at bedside. Patient is independent of ADLS, lives with her in a apartment, elevator access, 0 DME. Plan is for the patient to return home. CM to follow
[2024-04-03 12:10] LABS: Glucose - Point of Care 184 mg/dl (70-99)
--- NOTE | 2024-04-03 12:29 | CONSULT.CT ---
Consultation
-
Date/Time Consultation Requested: 04/03/2024
Date/Time Consultation Performed: 04/03/2024
Requesting Provider: Dr. Francis Ying
Performing Provider: Zhane wilde
Reason for Consultation: CABG eval
Patient History
Physicians
Family Physician: Dr. Abbasi
Outpatient Can Filler: Dr. Triplett
History of Present Illness
Patient is a 68-year-old female with a known history of coronary artery disease status post NSTEMI in 07/29 and stenting of ostial and mid left circumflex. Past medical history also significant for hypertension, diabetes, hypercholesterolemia and
anxiety.
She presented to [facility] ED complaining of substernal chest pain with radiation to her left arm and shoulder. She reports chest pain x 3 days and the last episode prior to presentation was reported as worsening. Patient also noted
nausea, diaphoresis and lightheadedness. She noted the symptoms were similar to those she had with her prior CA of 07/2023. She has been on aspirin and Plavix and took her last Plavix dose this morning on 04/03/2024.
She underwent cardiac catheterization today on 04/03/[address] Doss. There is a 60% stenosis of the mid distal LAD which was IFR positive. There was a critical 90% in-stent restenosis at the ostial proximal circumflex stent. A chronic left
total occlusion of the L PDA. Cardiothoracic surgery was consulted for surgical revascularization.
All studies will be reviewed by attending cardiothoracic surgeon.
Will hold Plavix and review echocardiogram when complete.
Past Medical History
Past Medical History: Angina, Arrhythmias (WPW), CAD, Cancer, ROBERTS, HTN, Hypercholesterolemia, NIDDM and CA
Past medical history of NSTEMI and stenting of ostial and mid circumflex 07/2023, hypertension, diabetes, hypercholesterolemia, anxiety, there is a single solitary functioning kidney,WPW
Past Surgical History
Past Surgical History: Hysterectomy, PCI/Stent and Tonsilectomy
Past surgical history lumbar back surgery x 3
Hand surgery
Hysterectomy
Tubal ligation
Lumpectomy
Right axillary abscess I&D
Dental History
Denies any current dental issues, last dental exam 3 months ago
Family History
Mother: Still Living (Mother alive and well at 85 years of age has hypertension hyperlipidemia and anxiety)
Father: at Age (Father at age 79 had a history of severe insulin-dependent diabetes and of vascular complications from diabetes)
Family Medical History: CAD and Diabetes
Social History
Alcohol: Occasional
Drug: None
Tobacco: Former Smoker
Personal:
Living: With Spouse (Lives with her Nacho)
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
Allergies
Allergy/AdvReac Type Severity Reaction Status Date / Time
sulfamethoxazole Allergy Vomiting Verified 03/31/24 22:46
[From Bactrim]
trimethoprim [From Bactrim] Allergy Vomiting Verified 03/31/24 22:46
Home Medications
�Medication �Instructions �Recorded �Confirmed �Type
lorazepam 0.5 mg tablet (Ativan) 0.5 mg PO DAILYPRN PRN panic 07/18/23 03/31/24 History
attacks,anxiety
magnesium 250 mg tablet 250 mg PO DAILY Electrolyte 07/18/23 04/01/24 History
Repletion
aspirin 81 mg tablet,delayed 81 mg PO DAILY Blood Clot 07/20/23 04/01/24 History
release Prevention/Tx
escitalopram oxalate 20 mg tablet 20 mg PO DAILY depression/anxiety 07/20/23 04/01/24 History
(Lexapro)
losartan 100 mg tablet 100 mg PO DAILY Blood Pressure 07/20/23 04/01/24 History
metformin 1,000 mg tablet 1,000 mg PO DAILY Diabetes 07/20/23 04/01/24 History
nitroglycerin 0.4 mg sublingual 0.4 mg sublingual [id number] PRN 07/20/23 04/01/24 Rx
tablet chest pain #25 tabs
acetaminophen 325 mg tablet 650 mg PO Q4HPRN PRN mild pain 01/24/24 03/31/24 History
(Tylenol)
calcium carbonate 500 mg PO DAILY Supplement 01/24/24 04/01/24 History
cholecalciferol (vitamin D3) 25 25 mcg PO DAILY Supplement 01/24/24 04/01/24 History
mcg (1,000 unit) tablet (Vitamin
D3)
clopidogrel 75 mg tablet (Plavix) 75 mg PO DAILY Blood Clot 01/24/24 04/01/24 History
Prevention/Tx
metoprolol succinate 50 mg 50 mg PO DAILY Blood Pressure 01/24/24 04/01/24 History
tablet,extended release 24 hr
(Toprol XL)
rosuvastatin 20 mg tablet 20 mg PO HS High Cholesterol 01/24/24 04/01/24 History
therapeutic multivitamin 1 tab PO DAILY Supplement 01/24/24 04/01/24 History
tirzepatide 10 mg/0.5 mL 12.5 mg SC TH Diabetes 01/24/24 04/01/24 History
subcutaneous pen injector
(Riya)
Review of Systems
-
History Source: Patient
General: Reports Weight Loss
HEENT: Reports No Symptoms
Respiratory: Reports ROBERTS
Cardiac: Reports Chest Pain, CAD, Nausea and Diaphoresis
Abdomen/GI: Reports Nausea
: Reports No Symptoms
Musculoskeletal: Reports Arthralgias and Joint Pain
Skin: Reports No Symptoms
Neurological: Reports No Symptoms
Vascular: Reports No Symptoms
Physical Exam
Vital Signs
Temp 98.1 F 04/03/24 11:05
Temp route: Oral 04/03/24 11:05
Pulse 70 04/03/24 11:30
Rhythm: Normal sinus rhythm 04/03/24 08:30
Resp Rate 20 04/03/24 11:05
Blood pressure 134/60 04/03/24 11:30
Blood pressure extremity used: Left upper arm 04/03/24 11:05
Position: Lying 04/03/24 11:05
MAP (cuff-Baljinder Monitor) 83 04/03/24 11:30
SaO2 100 04/03/24 11:30
Oxygen Mode of Delivery Room air 04/03/24 11:05
Acceptable pain level during hospitalization? 0 03/31/24 22:46
Can the patient verbally communicate their pain? Yes 04/03/24 08:30
Pain scale ratin 04/01/24 13:36
Actual Weight 171 lb 8.314 oz 04/03/24 04:29
Body Mass Index (BMI) 28.5 04/03/24 04:29
Labs
04/03/24 04:36
04/01/24 04:16
APTT 84.2 Sec (23.4-35.0) H 04/03/24 04:36
Hemoglobin A1c 7.0 % (4.0-5.6) H 04/01/24 04:16
Troponin I 0.026 ng/ml 04/01/24 22:56
Exam
General: Well Developed, Well Nourished, No Apparent Distress and Comfortable
HEENT: Normocephalic and Atraumatic
Neck: Trachea Midline
Respiratory: Clear
Cardiac: Regular Rhythm
GI: Soft, Non Tender, Non Distended and Normal Bowel Sounds
Rectal: Deferred by Provider
Skin: Warm and Dry
Neuro: Awake, Alert, Oriented and AO x 3
Extremities: Pulses (No lower extremity edema, distal pulses intact bilaterally feet cool dry)
Lymph: No Lymphadenopathy
Psych: Calm
Assessment / Plan
-
Assessment: Multivessel coronary artery disease status post NSTEMI 07/18/2023 status post drug-eluting stent to ostial and proximal mid left circumflex
Hypertension
Diabetes mellitus type 2
Hyperlipidemia
Spesner parkinson white syndrome
Solitary functioning kidney
Anxiety treated with Lexapro
Former smoker
Plan:
Preoperative studies ordered, hold Plavix last dose today 04/03/2024
Hold metformin and Mounjaro
Consult FIELD SERVICE ENGINEER for DM mgt. A1c 7.0
Hold losartan for 2 days prior to OR date
All studies to be reviewed by attending cardiothoracic surgeons, will meet patient and family to discuss surgical plan and timing.
Data Reviewed
-
EKG: Report Reviewed by me
Heat And Frost Insulator: Report Reviewed by me
Labs: Labs Reviewed by me
[2024-04-03] MEDS: NOVOLOG FLEXPEN-LOW RESISTANCE SC (12:35)
[2024-04-03 13:30] LABS: ACT-LR - POC > 397 Seconds (116-155)
--- NOTE | 2024-04-03 14:28 | PTCARENOTE ---
received patient this am, monitor shows NSR, VSS, no c/o pain. IV heparin infusing at 1150units/hr via right ant. patient remains NPO for cardiac cath today.
patient returned from cardiac cath and is weepy, right radial R band intact, hnad is numb and purple, 3cc of aic out of band with relief. distal pulse palpable. heparin drip is off and will resume at 1500. family at bedside.
patient to U/S of carotids and U/S mapping via stretcher accompanied by vol. services.
--- NOTE | 2024-04-03 15:54 | PN.DE.MGMTRT ---
Insulin Management
- -
04/03/2024: Diabetes management Consult
68 year old female admitted with eft sided shoulder pain/chest heaviness and one low level (altamirano zone) troponin.
PMH: CAD s/p NSTEMI 07/18/23 s/p REINALDO, HTN, HLD, Solitary Functioning Kidney, Avwjw-Ybohggyml-Hhjsv Syndrome, Anxiety / Depression and NIDDM.
A1C 7.0%, Cr 0.9, eGFR >60. Was taking Metformin 1000 mg BID and Mounjaro 12.5mg Q .
Pt off the floor for testing, undergoing w/u for consideration of surgical revascularization.
Family-, Dtr and son at bedside. Able to discuss diabetes mgt with
Metformin on hold post Cath. Fasting glucose elevated 213 this AM.
04/02 Premeal range 146 to 185. Will start basal bolus while holding metformin
Start AC NovoLog 4 units and Lantus 10 nits @ HS. cont low corrective with meals.
Per pt's , pt has working glucose monitor at home.
Will follow and make further adjustments if necessary
Diabetes History
- -
Type of Diabetes: 2
Pre-Admission Diabetes Regimen
Lab Results
Hemoglobin A1c 7.0 % (4.0-5.6) H 04/01/24 04:16
Insulin Pump Settings
IP Diabetes Regimen
04/02/24 04/02/24 04/03/24
17:30 23:15 08:00
POC Glucose 146 H 182 H 213 H
04/03/24
12:08
POC Glucose 184 H
Meal type: Lunch
Meal type: Breakfast
Amount consumed: 90%
Amount consumed: 0
Patient Education
[2024-04-03 17:03] LABS: Glucose - Point of Care 211 mg/dl (70-99)
[2024-04-03] MEDS: NOVOLOG FLEXPEN 4 UNITS SC (17:43)
--- NOTE | 2024-04-03 18:18 | W.PN.UPDATE ---
Update Note
Progress Note Update
pt seen and examined
cath reviewed in detail with Dr Doss
I agree grafts to distal lad/om and possibly lpda
Given plavix today 04.03.24
Plan cabg after cabg washout
Pt and family agree
--- NOTE | 2024-04-03 18:25 | W.PN.HOSP.TC ---
Addendum entered and electronically signed by Irving Keith MD 04/03/24 19:27:
Attending Addendum-
I saw and evaluated the patient. I reviewed the resident�s note and agree with findings and plan as documented in the resident�s note. Sub: patient seen post cath. feels anxious regarding plan for cabg. Seen with family present. Denies CP palps. has
numbness tingling @ right fingers. Full 12 point ROS reviewed and negative except as documented Exam: Vitals reviewed in chart GEN-NAD heart RRR lungs clear abd soft Ext right wrist site band in place, good tappet adjuster strength. Plan:
# NSTEMI
- s/p cardiac cath 04/03- Left dominant circulation with critical, 90% in-stent restenosis of the ostial/proximal circumflex stent, a chronic total occlusion of the LPDA, and moderate, occlusive tandem lesions in the LAD (30% ostial, 40% mid and
50-60% mid/distal, IFR = 0.84).
- appreciate IC and CT surg input
- for CABG after Plavix washout
- h/o PCI of ostial/proximal and mid LCx 07/18/23.
- hold plavix, continue hep gtt, monitor aptt closely
- cont metoprolol, rosuvastatin and asa
#HTN
- stable monitor continue metoprolol, losartan.
#HLD
-Continue rosuvastatin 20 mg daily.
#DM
- metformin on hold
- start on Lantus 10 q hs with 4 NovoLog q ac
- cont SSI
- monitor AccuCheck closely
# Depression/Anxiety-
- cont Lexapro
- cont Ativan prn
Time spent coordinating care, review of plan of care with resident, personally reviewed records in EMR, med rec, consults, notes, labs, radiology, d/w nursing, cardiology, family � 59 mins
Original Note:
Today's Communication/Plan
-
Patient underwent Cardiac Catheterization and was told about the need for cardiothoracic surgical intervention.
Patient on Heparin drip, monitor PTT levels.
Assessment / Plan
Assessment / Plan
Assessment:
Patient is a 68-year old woman with history of coronary artery disease. Patient came to the ED on 04/01 with left shoulder discomfort and pain radiating down her arm. Patient took nitroglycerin at home for prompt relief but presented to the hospital
after the episode recurred. Patient was scheduled for cardiac catheterization which was performed successfully on 04/03.
Plan:
Unstable angina:
-NSTEMI, Cardiology onboard. Discussed course of management with cardiology team
-Cardiac Cath showed 90% in-stent restenosis of ostial/proximal circumflex stent, chronic total occlusion of LPDA and moderate, occlusive tandem lesions in the LAD (IFR=0.84).
-Cardiothoracic surgery consulted for surgical revascularization
-Plavix given today, CABG planned after Plavix washout. Heparin 26624 units/ 250mL still being given. Monitor PTT levels with therapeutic goal 80-110.
-Previous history of NSTEMI PCI of ostial/proximal and mid LCx 07/18/23
Essential HTN:
-Hold losartan for 2 days prior to OR date
DM2:
-Hold metformin and mounjaro
-Patient switched to basal bolus insulin regimen
-Diabetic diet
-Monitor Blood sugar levels for glycemic control
Anxiety/Depression:
-Cont Lexapro
Hyperlipidemia:
-Continue Rosuvastatin 20mg Daily
FULL/Heparin gtt
Anticipated Discharge: > 48 hours
Subjective/Interval History
-
Date of Service: April 03, 2024
Patient was feeling well in the morning with no adverse events overnight. Patient underwent successful cardiac catheterization.
Objective Data
-
Labs:
Laboratory Results
04/03/24
21:30
APTT Pending
Vital Signs:
Vital Signs
Temp Pulse Resp BP Pulse Ox
98 F 80 20 120/64 98
04/03/24 15:57 04/03/24 18:00 04/03/24 15:57 04/03/24 16:00 04/03/24 15:57
I&O
04/02/24 04/03/24 04/04/24
06:59 06:59 06:59
Intake Total 480 / 480 480 / 480 362.5 / 362.5
Balance 480 / 480 480 / 480 362.5 / 362.5
Review of Systems
-
History Source: Patient
Constitutional: Reports No Symptoms
Respiratory: Denies Cough, Trouble Breathing or Wheezing
Cardiac: Denies Chest Pain, Palpitations or Syncope
Musculoskeletal: Denies Joint Pain, Muscle Pain or Edema
Physical Exam
-
General: Well Developed, Well Nourished and No Apparent Distress
Respiratory: Clear to Auscultation
Cardiac: Regular Rhythm
Musculoskeletal: Other (Right arm sore after Cardiac Cath, describes tingling and slight numbness)
Neuro: Awake, Alert, Oriented and AO x 3
Data Reviewed
-
Diagnostic Radiology: Report Reviewed by me
Ultrasound: Report Reviewed by me
Medical Tests (Nuc Med, Echo etc): Report Reviewed by me
Labs: Labs Reviewed by me, Discussed with Physician and Discussed with Patient
Old Records: Reviewed
--- NOTE | 2024-04-03 20:39 | PTCARENOTE ---
Patient received at change of shift. In good spirits, laughing with staff. IV heparin at 1150 units. Resting at present. Sinus on telemetry.
[2024-04-03 21:38] LABS: Glucose - Point of Care 145 mg/dl (70-99)
[2024-04-03] MEDS: LANTUS 0.1 UNITS SC (21:39)
[2024-04-03] MEDS: CRESTOR 20 MG PO (21:39)
[2024-04-03 22:03] LABS: APTT 66.5 Sec (23.4-35.0)
[2024-04-04] VITALS (9 sets, daily range): BP systolic 112–156; BP diastolic 63–82; BMI 28.6
--- NOTE | 2024-04-04 00:32 | W.PN.CT ---
Today's Communication / Plan
-
Plan:
-Cont. current medical management by primary team
-Cont. current meds (ASA, Heparin gtt, Toprol XL, Cozaar, Crestor, Lexapro)
-Avoid SHELBY-I/ARBs 48hrs prior to CABG (will need to hold Cozaar)
-Ongoing preop workup
-Plavix washout, last dose 04/01/24 @ 927
-Tentatively for CABG by Dr. Alexis Wednesday04/10/24
-Will cont. to closely monitor
Assessment / Plan
-
Assessment:
-Severe multivessel CAD
-[place]
-Plavix washout, last dose 04/01/24 @ 0928
-Hx CAD/NSTEMI S/P PCI with REINALDO to ostial/prox and mid LCX, 07/18/23
-HTN
-T2DM (hgb A1C 7.0)
-HLD
-Hx R axillary MSSA abscess S/p I&D 01/27
-Congenital solitary kidney
-Anxiety/depression
-Back pain d/t herniated disc S/P diskectomy/facetectomy/foraminotomy of L5-S1, 11/05/14
-S/p Hand surgery
-S/P Hysterectomy, 2004
-S/P Tubal ligation
-S/P Lumpectomy
Discussed patient care with: Cardiology, Nursing, Respiratory Therapy, Pharmacy and Care Team
Subjective
-
Date of Service: April 04, 2024
No issues overnight. Denies CP/SOB
Objective Data
-
Lab Results
04/03/24 04:36
APTT 66.5 Sec (23.4-35.0) H 04/03/24 21:38
Vital Signs
Vital Signs
Temp Pulse Resp BP Pulse Ox
97.5 F 69 18 124/60 98
04/03/24 21:30 04/03/24 22:00 04/03/24 21:30 04/03/24 21:30 04/03/24 21:30
CT Intake/Output/Weight
04/03/24 04/03/24 04/04/24
06:59 18:59 06:59
Intake Total 240 / 480 362.5 / 362.5
Balance 240 / 480 362.5 / 362.5
SaO2: 98 (RA)
Physical Exam
-
General: Awake, Oriented and AOx3
Cardiovascular: Regular rate & rhythm
Respiratory: Clear
Data Reviewed
-
Lab Results: Results Reviewed
Medications: Active Meds Reviewed
Chest X-Ray: Report Reviewed and Image Reviewed
ECG: Report Reviewed and Image Reviewed
--- NOTE | 2024-04-04 04:58 | PTCARENOTE ---
Patient reports that she slept well. SR on telemetry. AM labs drawn and pending.
[2024-04-04 04:59] LABS: APTT 82.5 Sec (23.4-35.0)
[2024-04-04 05:10] LABS: Blood Urea Nitrogen 24 mg/dl (7-17); Carbon Dioxide 27 mmol/L (22-30); Estimated Creatinine Clearance 71 ml/min; Potassium 3.9 mmol/L (3.5-5.1); eGFR > 60.00
[2024-04-04 05:19] LABS: Calcium 9.8 mg/dl (8.4-10.2); Chloride 106 mmol/L (98-107); Glucose 144 mg/dl (70-99); Sodium 139 mmol/L (135-145)
[2024-04-04 07:48] LABS: Glucose - Point of Care 179 mg/dl (70-99)
[2024-04-04] MEDS: NOVOLOG FLEXPEN-LOW RESISTANCE 1 UNITS SC ×2 (07:48→18:16)
[2024-04-04] MEDS: NOVOLOG FLEXPEN 4 UNITS SC ×3 (07:49→18:17)
[2024-04-04] MEDS: TOPROL XL 50 MG PO (07:50)
[2024-04-04] MEDS: LEXAPRO 20 MG PO (07:50)
[2024-04-04] MEDS: ASPIR LOW (ENTERIC COATED) 81 MG PO (07:50)
[2024-04-04] MEDS: COZAAR 100 MG PO (07:50)
--- NOTE | 2024-04-04 08:30 | PTCARENOTE ---
Assumed care of patient at 0700. Pt is awake, alert, and oriented. No complaints of pain at this time. Pt remains SR with PVCs. HR 80's. BP 112/65 MAP 80. Pulse oximetry 99% on room air. Pt tolerating PO diet. Voiding without difficulty. Remains on
heparin gtt at 1250units/hr. Pt ambulating independently around room. No issues at this time.
--- NOTE | 2024-04-04 09:24 | PN.DE.MGMTRT ---
Insulin Management
- -
04/04/2024: Diabetes management Consult Follow up
Patient admitted with left sided shoulder pain/chest heaviness and one low level (altamirano zone) troponin.
PMH: CAD s/p NSTEMI 07/18/23 s/p REINALDO, HTN, HLD, Solitary Functioning Kidney, Knkzp-Diaonyboh-Ioqis Syndrome, Anxiety / Depression and NIDDM.
A1C 7.0%, Cr 0.9, eGFR >60. Was taking Metformin 1000 mg BID and Mounjaro 12.5mg Q .
Patient awake, alert and oriented resting in bed. Able to discuss diabetes management. Patient currently using [employer] G6 CGM.
04/03 Premeal range 184 to 213. Will start basal bolus while holding metformin
Receiving AC NovoLog 4 units and Lantus 10 units @ HS. with low corrective with meals.
Discussed with patient upcoming surgery and insulin infusion. Discussed adding Farxiga to regimen post operatively, she is agreeable.
Will follow and make further adjustments if necessary
Diabetes History
- -
Type of Diabetes: 2 requiring insulin
Pre-Admission Diabetes Regimen
04/04/24
04:05
Creatinine 0.8
Lab Results
Hemoglobin A1c 7.0 % (4.0-5.6) H 04/01/24 04:16
Insulin Pump Settings
IP Diabetes Regimen
04/03/24 04/03/24 04/03/24
12:08 17:02 21:37
Glucose
POC Glucose 184 H 211 H 145 H
04/04/24 04/04/24
04:05 07:46
Glucose 144 H
POC Glucose 179 H
Meal type: Breakfast
Meal type: Lunch
Amount consumed: 90%
Patient Education
[2024-04-04] MEDS: HEPARIN 25000 UNITS/250 ML IV (10:34)
--- NOTE | 2024-04-04 10:44 | W.PN.CD ---
Today's Communication / Plan
-
-Found to have multivessel coronary artery disease on cardiac catheterization yesterday; CT Surgery consulted.
-CABG planned for Wednesday04/10/2024 after Plavix washout.
-Continue heparin drip and aspirin.
-Echocardiogram today.
Impression / Plan
-
Impression/Plan: 68 y/o female with HTN, HLD, NIDDM and CAD s/p prior PCI to the ostial/proximal and mid LCx (07/2023) admitted with left sided shoulder pain/chest pain. Found to have multivessel coronary artery disease on cardiac catheterization
04/03/2024.
# Multivessel CAD
-Previous NSTEMI with PCI of ostial/proximal and mid LCx ([employer]ience Skypoint 4.0 x 28 REINALDO) on 07/18/23.
-Found to have multivessel coronary artery disease on cardiac catheterization yesterday; CT Surgery consulted.
-CABG planned for Wednesday04/10/2024 after Plavix washout.
-Continue heparin drip and aspirin.
-Continue metoprolol and rosuvastatin.
-Echocardiogram today.
-Continue shelter monitor.
#HTN
-Controlled.
-Continue current medications.
#HLD
-Chronic, stable.
-Total cholesterol = 126, LDL = 47, HDL = 54, Triglycerides = 128.
-Continue rosuvastatin 20 mg daily.
#DM
-Hemoglobin A1c 7.0.
-Holding metformin for surgery.
Subjective/Interval History:
No major events overnight. Denies any chest pain or shortness of breath currently.
Physical Exam
Vital Signs/Labs
Vital Signs
Temp Pulse Resp BP Pulse Ox
98.0 F 88 18 112/65 99
04/04/24 07:47 04/04/24 08:00 04/04/24 07:47 04/04/24 07:36 04/04/24 08:27
04/03/24 04/04/24 04/05/24
06:59 06:59 06:59
Actual Weight 77.8 kg 77.9 kg
04/03/24 04:36
04/04/24 04:05
APTT Cancelled 04/04/24 06:00
Triglycerides 128 mg/dl (10-149) 04/01/24 04:16
LDL Cholesterol, Calc 47 mg/dl 04/01/24 04:16
VLDL Cholesterol, Calc 25 mg/dl (0-30) 04/01/24 04:16
HDL Cholesterol 54 mg/dl 04/01/24 04:16
LAB Results
04/01/24 04/01/24
16:00 22:56
Troponin I 0.034 0.026
Physical Exam
Constitutional: No acute distress and Comfortable
EENT: Anicteric and Moist mucous membranes
Cardiovascular: Rhythm & rate is regular, Pedal edema is absent, Systolic murmur absent and S1S2 is normal
Respiratory: Respiratory effort normal and Lungs clear to auscul.
GI: Soft
Neuro/Psych: AO x 3
Other: Skin (warm, dry, intact)
Data Reviewed
-
Date of Service: April 04, 2024
EKG: Tracing Personally Visualized and interpreted (Telemetry: Sinus rhythm)
Labs: Labs Reviewed by me
--- NOTE | 2024-04-04 11:18 | CM ---
Pricing on Farxiga 10mg daily is $25 for a 30 day supply retail and $50 for a 90 day supply mail order
Jardiance 10mg daily is $25 for a 30 day supply retail and $50 for a 90 day supply mail order.
Patient has [employer], ID# [id number]
[2024-04-04 12:24] LABS: Glucose - Point of Care 148 mg/dl (70-99)
[2024-04-04] MEDS: NOVOLOG FLEXPEN-LOW RESISTANCE SC (12:27)
[2024-04-04 12:48] LABS: APTT 43.3 Sec (23.4-35.0)
--- NOTE | 2024-04-04 13:00 | PTCARENOTE ---
Pt with no changes in assessment. ECHO and PFT completed. PTT collected and reviewed, heparin gtt adjusted per protocol. Pt remains SR with HR 70's-80's. BP 119/82 MAP 94. Pt remains pain free.
--- NOTE | 2024-04-04 13:05 | CM ---
Preoperative and postoperative instructions and restrictions reviewed with the patient, along with showering guidelines. Gave the patient Cardiac Surgery Book. Patient is agreeable to a home visit by CT Transitional RN. Plan is for the patient
to return home with CT Transitional RN. CM to follow
--- NOTE | 2024-04-04 16:21 | PTCARENOTE ---
Pt showered and now ambulating around hallway without issue. Remains SR, HR 70's. BP 135/71 MAP 89. Remains on heparin gtt. Remains chest pain free.
[2024-04-04 18:20] LABS: Glucose - Point of Care 175 mg/dl (70-99)
[2024-04-04 18:40] LABS: APTT 72.9 Sec (23.4-35.0)
--- NOTE | 2024-04-04 19:56 | W.PN.HOSP.TC ---
Addendum entered and electronically signed by Irving Keith MD 04/04/24 21:45:
Attending Addendum-
I saw and evaluated the patient. I reviewed the resident�s note and agree with findings and plan as documented in the resident�s note. Sub: requesting to go home prior to CABG. 'Im just really overwhelmed and need to get stuff done!'. Full 12 point
ROS reviewed and negative except as documented Exam: Vitals reviewed in chart GEN-NAD heart RRR lungs clear abd soft Ext right wrist pulses intact, good glass cylinder flanger strength. Plan:
# Multivessel CAD/NSTEMI
- s/p cardiac cath 04/03- Left dominant circulation with critical, 90% in-stent restenosis of the ostial/proximal circumflex stent, a chronic total occlusion of the LPDA, and moderate, occlusive tandem lesions in the LAD (30% ostial, 40% mid and
50-60% mid/distal, IFR = 0.84).
- appreciate IC and CT surg input
- for CABG on 04/10 after Plavix washout
- h/o PCI of ostial/proximal and mid LCx 07/18/23.
- hold plavix, continue hep gtt, monitor aptt closely
- cont metoprolol, rosuvastatin and asa
- complete pre-op studies
- echo 04/04-Left ventricular ejection fraction is 60-65%, by visual assessment. Normal
regional wall motion.Normal right ventricular size and function.
Likely moderate to severe, eccentric mitral regurgitation.
Trace tricuspid regurgitation. Estimated pulmonary artery pressure of 25-30
mmHg. progressive mitral regurgitation is
noted.
- completed carotid US, vascular mapping US and PFT's.
- will need to be monitored in acute care setting prior to cabg
#HTN
- stable monitor continue metoprolol, losartan.
#HLD
-Continue rosuvastatin 20 mg daily.
#DM
- Idx7m-7.0
- controlled
- metformin on hold
- cont new Lantus 10 q hs with 4 NovoLog q ac
- appreciate DM educator input
- cont SSI
- monitor AccuCheck closely
- farxiga on DC
# Depression/Anxiety-
- cont Lexapro
- cont Ativan prn
Time spent coordinating care, review of plan of care with resident, personally reviewed records in EMR, med rec, consults, notes, labs, radiology, d/w nursing, cardiology, family � 51 mins
Original Note:
Today's Communication/Plan
-
Patient will continue current medications.
Assessment / Plan
Assessment / Plan
Assessment:
Patient is a 68-year old woman with history of coronary artery disease. Patient came to the ED on 04/01 with left shoulder discomfort and pain radiating down her arm. Patient took nitroglycerin at home for prompt relief but presented to the hospital
after the episode recurred. Patient was scheduled for cardiac catheterization which was performed successfully on 04/03.
Plan:
Unstable angina:
-NSTEMI, Cardiology onboard. Discussed course of management with cardiology team
-Cardiac Cath showed 90% in-stent restenosis of ostial/proximal circumflex stent, chronic total occlusion of LPDA and moderate, occlusive tandem lesions in the LAD (IFR=0.84).
-Cardiothoracic surgery consulted for surgical revascularization
-Monitor PTT levels with therapeutic goal 80-110.
-Previous history of NSTEMI PCI of ostial/proximal and mid LCx 07/18/23
-Patient scheduled for CABG on 04/10 tentatively
Essential HTN:
-Continue current meds
-Hold losartan for 2 days prior to OR date
DM2:
-Hold metformin and mounjaro
-Patient switched to basal bolus insulin regimen
-Diabetic diet
-Monitor Blood sugar levels for glycemic control
Anxiety/Depression:
-Cont Lexapro
Hyperlipidemia:
-Continue Rosuvastatin 20mg Daily
FULL/Heparin gtt
Anticipated Discharge: > 48 hours
Subjective/Interval History
-
Date of Service: April 04, 2024
Patient has been feeling well over night. No adverse events.
Objective Data
-
Labs:
Laboratory Results
04/04/24 04/04/24
12:20 18:11
APTT 43.3 H 72.9 H
Vital Signs:
Vital Signs
Temp Pulse Resp BP Pulse Ox
97.8 F 73 18 135/71 100
04/04/24 19:31 04/04/24 16:13 04/04/24 19:31 04/04/24 16:12 04/04/24 19:31
I&O
04/03/24 04/04/24 04/05/24
06:59 06:59 06:59
Intake Total 480 / 480 362.5 / 375.0 162.0 / 162.0
Balance 480 / 480 362.5 / 375.0 162.0 / 162.0
Review of Systems
-
History Source: Patient
Constitutional: Denies Fever, Chills or Weakness
Respiratory: Denies Cough or Wheezing
Cardiac: Denies Chest Pain or Palpitations
Abdomen/GI: Denies Abdominal Pain or Vomiting
Neuro: Denies Headache or Weakness
Physical Exam
-
General: Well Developed, Well Nourished and No Apparent Distress
Respiratory: Clear to Auscultation and Non Labored Respirations
Cardiac: Regular Rhythm and S1/S2
Musculoskeletal: No Clubbing, No Cyanosis, No Edema and Other (Right Wrist tender, feeling has returned fully)
Data Reviewed
-
Diagnostic Radiology: Report Reviewed by me and Discussed with Physician
Medical Tests (Nuc Med, Echo etc): Report Reviewed by me and Discussed with Physician
Labs: Labs Reviewed by me, Discussed with Physician and Discussed with Patient
[2024-04-04 21:23] LABS: Glucose - Point of Care 178 mg/dl (70-99)
[2024-04-04] MEDS: CRESTOR 20 MG PO (22:36)
[2024-04-04] MEDS: LANTUS 0.1 UNITS SC (22:36)
[2024-04-04] MEDS: NITROSTAT (SUBLINGUAL) 0.4 MG SL (23:38)
[2024-04-04] MEDS: NITROGLYCERIN PREMIX 250 IV (23:53)
[2024-04-05] VITALS (14 sets, daily range): BP systolic 96–130; BP diastolic 47–69; BMI 28.6
--- NOTE | 2024-04-05 00:16 | W.PN.UPDATE ---
Update Note
Progress Note Update
-at ~ 11:35 pm pt woke up from chest pressure radiating to L shoulder and neck. BP was 156/75, hr [address] depression in V2-V6. Pt was given 1 sl Nitro by RN and started on O2. Currently, she is pain free. BP 114/67, hr 86 nsr with
pacs, pOx 99% on 2L. She is on iv Heparin @ 1550 units/hr (Ptt was 72.9 at 6 pm and rate was increased). Echo 04/04:EF 60-65%, mod-severe MR
-started on Nitro drip
-continue ASA, Toprol, Crestor, Cozaar (will need to hold 48 hrs prior to CABG)
-Plavix washout, last dose 04/01/24 @ 0928
-awaiting CABG
-monitor closely
[2024-04-05] MEDS: TYLENOL 650 MG PO ×2 (00:35→09:53)
[2024-04-05 02:34] LABS: Hemoglobin 10.6 g/dL (12.0-16.0); Mean Corp Hgb Conc. 35.3 g/dL (33.0-37.0); Mean Corpuscular Hgb 31.8 pg (27.0-31.0); Mean Corpuscular Volume 90.1 fL (81.0-99.0); Mean Platelet Volume 9.6 fL (7.4-10.4); Platelet Count 256 10^3/uL (130-400); Red Blood Cell Count 3.33 10^6/uL (4.20-5.40); Red Cell Dist. Width 12.9 % (11.5-14.5); White Blood Cell Count 10.9 10^3/uL (4.8-10.8)
[2024-04-05 02:43] LABS: APTT 134.3 Sec (23.4-35.0)
[2024-04-05] MEDS: HEPARIN 25000 UNITS/250 ML IV ×2 (05:07→22:42)
--- NOTE | 2024-04-05 05:15 | PTCARENOTE ---
Assumed care of patient at change of shift. VSS, NSR on tele. R radial cath site open to air with no complications noted. Education provided on activity restrictions. At 2340 patient began of 8/10 chest pain, non radiating with associated SOB.
Patient placed on 2L NC, STAT EKG obtained, and SL nitro administered X1, see MAR. Patient reported relief of chest pain after SL nitro. PA made aware and to bedside to assess patient. Nitro drip ordered and hung, currently infusing at 5mcg/min.
Patient with no further complaints of chest pain. Heparin drip infusing at 13.5ml/hr. Plan of care discussed with patient. Remains NPO since midnight for DIAMANTE in AM Can make needs known. Call leung within reach.
[2024-04-05 06:11] LABS: Glucose - Point of Care 190 mg/dl (70-99)
--- NOTE | 2024-04-05 07:05 | W.PN.HOSP.TC ---
Addendum entered and electronically signed by Irving Keith MD 04/05/24 20:01:
Attending Addendum-
I saw and evaluated the patient. I reviewed the resident�s note and agree with findings and plan as documented in the resident�s note. Sub: Had anginal overnight with associated ST changes. Was started on nitro gtt with resolution of pain. Currently
CP free but does complains of constipation/abd apin. Full 12 point ROS reviewed and negative except as documented Exam: Vitals reviewed in chart GEN-NAD heart RRR lungs clear abd TTP LLQ no reboung or guarding. Ext right wrist pulses intact, good
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 Plan:
# Unstable Angina-
- episode 04/05 am started on nitro gtt
- ekg with st depression in v2->v6 now resolved
- cont gtt
- cont all other med
- may need surgery sooner than later if continues
- trop neg x 2
- CT surg and cards input appreciated
# Multivessel CAD/NSTEMI
- s/p cardiac cath 04/03- Left dominant circulation with critical, 90% in-stent restenosis of the ostial/proximal circumflex stent, a chronic total occlusion of the LPDA, and moderate, occlusive tandem lesions in the LAD (30% ostial, 40% mid and
50-60% mid/distal, IFR = 0.84).
- for CABG on 04/10 after Plavix washout - may need sooner
- h/o PCI of ostial/proximal and mid LCx 07/18/23.
- Plavix on hold , continue hep gtt, monitor aptt closely
- cont metoprolol, rosuvastatin and asa
- complete pre-op studies
- echo 04/04-Left ventricular ejection fraction is 60-65%, by visual assessment. Normal
regional wall motion.Normal right ventricular size and function.
Likely moderate to severe, eccentric mitral regurgitation.
Trace tricuspid regurgitation. Estimated pulmonary artery pressure of 25-30
mmHg. progressive mitral regurgitation is
noted.
- completed carotid US, vascular mapping US and PFT's.
- DIAMANTE rescheduled for 04/06 due to anginal episode
- NPOpMn
- will need to be monitored in acute care setting prior to cabg
# Abdominal Pain
- check LFTs lactate and lipase in am
- possibly due to constipation start bowel regimen
- monitor closely
- low threshold to check CT a/p if worsens
#HTN
- stable monitor continue metoprolol, losartan.
#HLD
-Continue rosuvastatin 20 mg daily.
#DM
- Vle5q-1.0
- uncontrolled
- metformin on hold
- increase Lantus 10->12 q hs with 4->5 NovoLog q ac
- appreciate DM GUEST LAUNDRY ATTENDANT educator input
- cont SSI
- monitor AccuCheck closely
- farxiga on DC
# Depression/Anxiety-
- cont Lexapro
- cont Ativan prn
Time spent coordinating care, review of plan of care with resident, personally reviewed records in EMR, med rec, consults, notes, labs, radiology, d/w nursing, cardiology, daughter � 58 mins
Original Note:
Today's Communication/Plan
-
Patient will continue her current regiment of medication and we will continue monitoring for abdominal and chest pain
Assessment / Plan
Assessment / Plan
Assessment:
Patient is a 68-year old woman with history of coronary artery disease. Patient came to the ED on 04/01 with left shoulder discomfort and pain radiating down her arm. Patient took nitroglycerin at home for prompt relief but presented to the hospital
after the episode recurred. Patient was scheduled for cardiac catheterization which was performed successfully on 04/03.
Plan:
# Multivessel CAD/NSTEMI
- s/p cardiac cath 04/03- Left dominant circulation with critical, 90% in-stent restenosis of the ostial/proximal circumflex stent, a chronic total occlusion of the LPDA, and moderate, occlusive tandem lesions in the LAD (30% ostial, 40% mid and
50-60% mid/distal, IFR = 0.84).
- appreciate IC and CT surg input
- for CABG on 04/10 after Plavix washout
- h/o PCI of ostial/proximal and mid LCx 07/18/23.
- hold plavix, continue hep gtt, monitor aptt closely
- cont metoprolol, rosuvastatin and asa
- complete pre-op studies
- echo 04/04-Left ventricular ejection fraction is 60-65%, by visual assessment. Normal regional wall motion. Normal right ventricular size and function.
Likely moderate to severe, eccentric mitral regurgitation.
Trace tricuspid regurgitation. Estimated pulmonary artery pressure of 25-30
mmHg. progressive mitral regurgitation is noted.
- completed carotid US, vascular mapping US and PFT's.
- will need to be monitored in acute care setting prior to cabg
- ECG with acute ST depression in V2-V6
- As per Cardiology
- Continue IV Nitroglycerin
- Continue IV Heparin @ 1550 units/hr (Ptt was 72.9 at 6 pm and rate was increased)
- Ptt was 72.9 at 6 pm and rate was increased Ptt (02.18 am 134.3) Next check 8am (97.6)
- DIAMANTE for evaluation cancelled today due to CP and GI issues. Will be done tomorrow
Abdominal Pain
-Dulcolax to help with constipation
-Monitoring in case pain does not relieve with bowel movement
Essential HTN:
-Continue metoprolol, losartan
-Hold losartan for 2 days prior to OR date
DM2:
- Ecg0b-6.0
- controlled
- metformin on hold
- cont new Lantus 10 q hs with 4 NovoLog q ac
- appreciate DM educator input
- cont SSI
- monitor AccuCheck closely
- farxiga on DC
-Diabetic diet
-Monitor Blood sugar levels for glycemic control
Hyperlipidemia:
-Continue Rosuvastatin 20mg Daily
Anxiety/Depression:
-Cont Lexapro
-Lorazepam 0.5mg given as needed
FULL/Heparin gtt
Anticipated Discharge: > 48 hours
Subjective/Interval History
-
Date of Service: April 05, 2024
Patient woke up from chest pressure radiating to L shoulder and neck. Currently she is pain free after treatment with nitroglycerin. Patient is a bit anxious about the surgery and the recovery afterwards.
Objective Data
-
Labs:
Laboratory Results
04/05/24 04/05/24
02:18 08:20
WBC 10.9 H
Hgb 10.6 L
Hct 30.0 L
Plt Count 256
APTT 134.3 H Pending
Vital Signs:
Vital Signs
Temp Pulse Resp BP Pulse Ox
98 F 87 18 108/66 98
04/05/24 02:21 04/05/24 02:21 04/05/24 02:21 04/05/24 02:21 04/05/24 02:21
I&O
04/04/24 04/05/24 04/06/24
06:59 06:59 06:59
Intake Total 362.5 / 375.0 162.0 / 162.0
Balance 362.5 / 375.0 162.0 / 162.0
Review of Systems
-
History Source: Patient
Constitutional: Denies Fever, Fatigue or Weakness
Respiratory: Denies Cough or Trouble Breathing
Cardiac: Denies Chest Pain
Abdomen/GI: Reports Abdominal Pain (Left lower quadrant pain) and Constipated
Psych: Reports Anxious
Physical Exam
-
General: Well Developed, Well Nourished and Comfortable
Respiratory: Clear to Auscultation and Non Labored Respirations
Cardiac: Regular Rhythm and S1/S2
GI: Tender (Left lower abdomen tenderness)
Musculoskeletal: No Clubbing, No Cyanosis and No Edema
Skin: Warm and Dry
Neuro: Awake, Alert, Oriented and AO x 3
Psych: Anxious
Data Reviewed
-
Medical Tests (Nuc Med, Echo etc): Report Reviewed by me, Discussed with Physician and Discussed with Family
Labs: Labs Reviewed by me, Discussed with Physician and Discussed with Patient
[2024-04-05] MEDS: NOVOLOG FLEXPEN SC (07:59)
[2024-04-05] MEDS: NOVOLOG FLEXPEN-LOW RESISTANCE SC (08:00)
--- NOTE | 2024-04-05 08:51 | W.PN.CD ---
Today's Communication / Plan
-
CP overnight Consistent with angina. Mild ST changes resolvedand pain free
Continue IV NTG and IV heparin
If she continue sot have angina despite medical therapy then timingof surgery will need to be reassessed
DIAMANTE for evaluation cancelled today due to CP and GI issues. Continue to assess timing. Alternatively can asess DIAMANTE intraoperatively
Abdominal discomfort. May be constipation. Tx constipation and assessment of abd per hospitlalists
Impression / Plan
-
Impression/Plan: 68 y/o female with HTN, HLD, NIDDM and CAD s/p prior PCI to the ostial/proximal and mid LCx (07/2023) admitted with left sided shoulder pain/chest pain. Found to have multivessel coronary artery disease on cardiac catheterization
04/03/2024.
# Multivessel CAD
-Previous NSTEMI with PCI of ostial/proximal and mid LCx (Xience Skypoint 4.0 x 28 REINALDO) on 07/18/23.
-Found to have multivessel coronary artery disease on cardiac catheterization yesterday; CT Surgery consulted.
-CABG planned for Wednesday04/10/2024 after Plavix washout.
- Echo with Normal LVF eccentric MR. reported as likely moderate to severe. possibility of MV repair/annuloplasty being assessed
- recurrent CP with some anterolateral ST changes 04/05/24. Responded promptly to NTG. Will continue IV NTG
- IV Heparin and NTG
#MR -echo 04/05/24 - Likely moderate to severe eccentric MR
- plan wasfor DIAMANTE 04/05/24. Postponed due to chest dscimfort and abdominal discomfort
.
Abdominal discomfort. diffuse but more notable LLQ. abd soft. patietnt suspects constipation.
- additonal assessment by hospitalists
#HTN
-Controlled.
-Continue current medications.
#HLD
-Chronic, stable.
-Total cholesterol = 126, LDL = 47, HDL = 54, Triglycerides = 128.
-Continue rosuvastatin 20 mg daily.
#DM
-Hemoglobin A1c 7.0.
-Holding metformin for surgery.
Subjective/Interval History:
No major events overnight. Denies any chest pain or shortness of breath currently.
Physical Exam
Vital Signs/Labs
Vital Signs
Temp Pulse Resp BP Pulse Ox
98 F 77 16 96/56 100
04/05/24 07:30 04/05/24 07:30 04/05/24 07:30 04/05/24 07:16 04/05/24 07:30
04/04/24 04/05/24 04/06/24
06:59 06:59 06:59
Actual Weight 78 kg
04/05/24 02:18
04/04/24 04:05
APTT 134.3 Sec (23.4-35.0) H 04/05/24 02:18
Triglycerides 128 mg/dl (10-149) 04/01/24 04:16
LDL Cholesterol, Calc 47 mg/dl 04/01/24 04:16
VLDL Cholesterol, Calc 25 mg/dl (0-30) 04/01/24 04:16
HDL Cholesterol 54 mg/dl 04/01/24 04:16
Physical Exam
Constitutional: No acute distress
EENT: Anicteric
Cardiovascular: Rhythm & rate is regular
Respiratory: Respiratory effort normal
GI: Soft, Normal bowel sounds and Other (mild discmfort but no rebound or guarding . Diffuse but feels in more in LLQ)
Neuro/Psych: Alert
Data Reviewed
-
Date of Service: April 05, 2024
Medical Decision Making: Reviewed Test Results
Medical Tests (PFT, Pathology etc): Report Reviewed by me
Labs: Labs Reviewed by me
--- NOTE | 2024-04-05 08:59 | PTCARENOTE ---
Assumed care of pt from prev nsg shift; Pt AAOX3 w/no c/o CP or SOB this AM. Pt is c/o 7-8/10 LLQ abd pain; Pt's abd tender to palpation & pt w/hypoactive bowel sounds. Pt reports she normally has 2 sm BMs/day & that 'it has been a few days since
her last BM'. Cardiology & Hospitalist/Resident on pt's service notified. Pt's DIAMANTE cancelled for this AM. Pt to remain NPO at this time. Pt w/VS stable w/HR in the 70's-80's & BP this AM 96/56. Pt remains SR w/occas PVC's on telemetry monitoring. Pt
w/IV Heparin & IV Nitroglycerin infusing through patent IV line as ordered. Plan of care ongoing.
--- NOTE | 2024-04-05 09:22 | PN.DE.MGMTRT ---
Insulin Management
- -
04/05/2024: Diabetes management Consult Follow up
Patient admitted with left sided shoulder pain/chest heaviness and one low level ([place]ir[place] zone) troponin.
PMH: CAD s/p NSTEMI 07/18/23 s/p REINALDO, HTN, HLD, Solitary Functioning Kidney, Qchze-Anpeuseca-Qvdtv Syndrome, Anxiety / Depression and NIDDM.
A1C 7.0%, Cr 0.9, eGFR >60. Was taking Metformin 1000 mg BID and Mounjaro 12.5mg Q .
Patient awake, alert and oriented resting in bed, family at bedside. Able to discuss diabetes management. Patient currently using [employer] G6 CGM.
Receiving AC NovoLog 4 units and Lantus 10 units @ HS. with low corrective with meals.
04/04 Premeal range 148 to 178. Fasting glucose 04/05 190. Will increase hs lantus to 12 units and ac novolog to 5 units. Currently NPO receiving corrective insulin only.
Discussed with patient upcoming surgery and insulin infusion. Discussed adding Farxiga to regimen post operatively, she is agreeable.
Will follow and make further adjustments if necessary
Diabetes History
- -
Type of Diabetes: 2
Pre-Admission Diabetes Regimen
Lab Results
Hemoglobin A1c 7.0 % (4.0-5.6) H 04/01/24 04:16
Insulin Pump Settings
IP Diabetes Regimen
04/04/24 04/04/24 04/04/24
12:23 18:15 21:21
POC Glucose 148 H 175 H 178 H
04/05/24
06:10
POC Glucose 190 H
Meal type: Dinner
Meal type: Lunch
Amount consumed: 100%
Amount consumed: 95%
Patient Education
[2024-04-05] MEDS: LEXAPRO 20 MG PO (09:49)
[2024-04-05] MEDS: COZAAR PO (09:49)
[2024-04-05] MEDS: ASPIR LOW (ENTERIC COATED) 81 MG PO (09:49)
[2024-04-05] MEDS: TOPROL XL 50 MG PO (09:49)
[2024-04-05] MEDS: MIRALAX 17 GRAMS PO (09:53)
[2024-04-05] MEDS: NOVOLOG FLEXPEN-LOW RESISTANCE 1 UNITS SC ×3 (09:55→17:54)
[2024-04-05 10:02] LABS: APTT 97.6 Sec (23.4-35.0)
[2024-04-05 10:13] LABS: Troponin I < 0.012 ng/ml
[2024-04-05 10:15] LABS: Hematocrit 31.7 % (37.0-47.0); Hemoglobin 10.9 g/dL (12.0-16.0); Mean Corp Hgb Conc. 34.4 g/dL (33.0-37.0); Mean Corpuscular Hgb 31.5 pg (27.0-31.0); Mean Corpuscular Volume 91.6 fL (81.0-99.0); Mean Platelet Volume 9.9 fL (7.4-10.4); Platelet Count 281 10^3/uL (130-400); Red Blood Cell Count 3.46 10^6/uL (4.20-5.40); White Blood Cell Count 9.6 10^3/uL (4.8-10.8)
[2024-04-05] MEDS: ATIVAN 0.5 MG PO (10:45)
[2024-04-05 10:46] LABS: Blood Urea Nitrogen 26 mg/dl (7-17); Calcium 9.6 mg/dl (8.4-10.2); Carbon Dioxide 25 mmol/L (22-30); Chloride 105 mmol/L (98-107); Estimated Creatinine Clearance 63 ml/min; Glucose 174 mg/dl (70-99); Phosphorus 4.6 mg/dl (2.5-4.5); Potassium 4.2 mmol/L (3.5-5.1); Sodium 138 mmol/L (135-145); eGFR > 60.00
[2024-04-05 13:16] LABS: Glucose - Point of Care 157 mg/dl (70-99)
[2024-04-05] MEDS: NOVOLOG FLEXPEN 5 UNITS SC ×2 (13:47→17:55)
--- NOTE | 2024-04-05 15:39 | CM ---
Chart reviewed. Patient is independent of ADLS, lives with her in a apartment, elevator access, 0 DME. Patient is scheduled for a CABG 04/10/24. Plan is for the patient to return home with CT Transitional RN. CM to follow.
[2024-04-05 17:36] LABS: Glucose - Point of Care 186 mg/dl (70-99)
[2024-04-05] MEDS: DULCOLAX 10 MG PO (17:59)
[2024-04-05 18:04] LABS: Troponin I < 0.012 ng/ml
[2024-04-05 19:38] LABS: APTT 83.4 Sec (23.4-35.0)
[2024-04-05 22:30] LABS: Glucose - Point of Care 169 mg/dl (70-99)
[2024-04-05] MEDS: LANTUS 0.12 UNITS SC (22:30)
[2024-04-05] MEDS: CRESTOR 20 MG PO (22:30)
[2024-04-06] MEDS: TYLENOL 650 MG PO (02:49)
[2024-04-06 03:08] VITALS: BP 110/53
[2024-04-06 03:27] VITALS: BMI 28.7
[2024-04-06 03:42] LABS: APTT 86.3 Sec (23.4-35.0)
[2024-04-06 03:53] LABS: Lactic Acid 0.6 mmol/L (0.7-2.0)
[2024-04-06 03:54] LABS: ALT (SGPT) 23 U/L (0-35); AST (SGOT) 23 U/L (14-36); Albumin 3.6 g/dl (3.5-5.0); Alkaline Phosphatase 56 U/L (38-126); Blood Urea Nitrogen 25 mg/dl (7-17); Calcium 9.5 mg/dl (8.4-10.2); Carbon Dioxide 25 mmol/L (22-30); Chloride 107 mmol/L (98-107); Direct Bilirubin 0.1 mg/dl (0.0-0.4); Estimated Creatinine Clearance 64 ml/min; Glucose 155 mg/dl (70-99); Lipase 956 U/L (23-300); Potassium 4.1 mmol/L (3.5-5.1); Sodium 136 mmol/L (135-145); Total Bilirubin 0.4 mg/dl (0.2-1.3); Total Protein 6.1 g/dl (6.3-8.2); eGFR > 60.00
--- NOTE | 2024-04-06 06:15 | PTCARENOTE ---
Patient remains NSR on monitor. VSS. Heparin drip currently infusing at 13.5ml/hr. Patient denies chest pain or SOB but had complaints of mild generalized aching pain which was relieved with Tylenol, see MAR. Right radial cath site open to air
with no complications noted. Patient with complaints of constipation for which PRN suppository and milk of mag were ordered. Patient refused both PRN medications. Patient remains NPO since midnight for DIAMANTE in AM. Call leung within reach.
[2024-04-06 06:45] LABS: Glucose - Point of Care 153 mg/dl (70-99)
--- NOTE | 2024-04-06 07:02 | W.PN.CD ---
Today's Communication / Plan
-
Lactulose/Mg citrate
DIAMANTE tomorrow
continue ASA/NTG/UFH
Impression / Plan
-
Impression/Plan: 68 y/o female with HTN, HLD, NIDDM and CAD s/p prior PCI to the ostial/proximal and mid LCx (07/2023) admitted with left sided shoulder pain/chest pain. Found to have multivessel coronary artery disease on cardiac catheterization
04/03/2024.
# Multivessel CAD
-Previous NSTEMI with PCI of ostial/proximal and mid LCx (Xience Skypoint 4.0 x 28 REINALDO) on 07/18/23.
-Presented with [place]- peak trop 0.036
- Multivessel CAD- CABG planned for 8-5 after plavix washout
- Had CP/ischemic ECG changes 7- but none overnight
- Continue ASA/UFH/IV NTG
#MR -echo 04/05/24 - Likely moderate to severe eccentric MR
- Planned DIAMANTE 04/05/24. Postponed due to chest dscimfort and abdominal discomfort
-Will plan for Wed 8-2
- May need annuloplasty at time of CABG
.
Abdominal discomfort.
- Improved but still very mild LLQ tenderness to deep palpation
- Minimal response to getting a bowel movement. Time for my intervention (lactulose 30cc +bottle mag citrate)
- If she develops leukocytosis, fever or progressive sxs would be thinking diverticulitis.Let's see if all resolves after BM
#HTN
-Controlled.
-Continue current medications.
#HLD
-Chronic, stable.
-Total cholesterol = 126, LDL = 47, HDL = 54, Triglycerides = 128.
-Continue rosuvastatin 20 mg daily.
#DM
-Hemoglobin A1c 7.0.
-Holding metformin for surgery.
Subjective/Interval History:
No major events overnight. Denies any chest pain or shortness of breath currently.
Physical Exam
Vital Signs/Labs
Vital Signs
Temp Pulse Resp BP Pulse Ox
98.2 F 69 18 110/53 96
04/06/24 03:21 04/06/24 04:00 04/06/24 03:21 04/06/24 03:08 04/06/24 03:21
04/05/24 04/06/24 04/07/24
06:59 06:59 06:59
Actual Weight 171 lb 15.369 oz 172 lb 6.424 oz
04/05/24 09:38
04/06/24 03:18
APTT 86.3 Sec (23.4-35.0) H 04/06/24 03:18
Triglycerides 128 mg/dl (10-149) 04/01/24 04:16
LDL Cholesterol, Calc 47 mg/dl 04/01/24 04:16
VLDL Cholesterol, Calc 25 mg/dl (0-30) 04/01/24 04:16
HDL Cholesterol 54 mg/dl 04/01/24 04:16
LAB Results
04/05/24 04/05/24
09:38 17:31
Troponin I < 0.012 < 0.012
Physical Exam
Constitutional: No acute distress and Comfortable
Cardiovascular: Rhythm & rate is regular and Systolic murmur present
Respiratory: Respiratory effort normal, Lungs clear to auscul., Wheeze Absent and Crackles Absent
GI: Soft and Non tender
Data Reviewed
-
Date of Service: April 06, 2024
--- NOTE | 2024-04-06 07:40 | PTCARENOTE ---
Assumed care of pt from prev nsg shift; Pt AAOX3 w/no c/o CP or SOB this AM. Pt is c/o 3/10 LLQ abd pain; Pt's abd tender to palpation & pt w/positive bowel sounds. Pt's DIAMANTE cancelled again for this AM & rescheduled for Wed AM. Pt given ducolax
suppository as ordered. Pt w/VS stable w/HR in the 70's-80's & BP this AM 129/65. Pt remains SR w/occas PVC's on telemetry monitoring. Pt w/IV Heparin infusing through patent IV line as ordered. Pt states she 'feels sad this morning'; emotional
support provided. Plan of care ongoing.
[2024-04-06 08:09] VITALS: BP 129/65
--- NOTE | 2024-04-06 08:11 | W.PN.HOSP.TC ---
Addendum entered and electronically signed by Irving Keith MD 04/06/24 20:57:
Attending Addendum-
I saw and evaluated the patient. I reviewed the resident�s note and agree with findings and plan as documented in the resident�s note. Sub: no further angina overnight. Currently CP free. Complains of abd pain which is improved after a BM but still
present. Full 12 point ROS reviewed and negative except as documented Exam: Vitals reviewed in chart GEN-NAD heart RRR lungs clear abd mild TTP LLQ no rebound or guarding. Ext right wrist pulses intact, good jack spinner strength. Plan:
# Unstable Angina-
- episode on 04/05
- cont nitro gtt
- ekg with st depression in v2->v6 now resolved
- cont all other med
- may need surgery sooner than later if continues
- trop neg x 2
- CT surg and cards input appreciated
# Multivessel CAD/NSTEMI
- s/p cardiac cath 04/03- Left dominant circulation with critical, 90% in-stent restenosis of the ostial/proximal circumflex stent, a chronic total occlusion of the LPDA, and moderate, occlusive tandem lesions in the LAD (30% ostial, 40% mid and
50-60% mid/distal, IFR = 0.84).
- for CABG on 04/10 after Plavix washout - may need sooner
- h/o PCI of ostial/proximal and mid LCx 07/18/23.
- Plavix on hold , continue hep gtt, monitor aptt closely
- cont metoprolol, rosuvastatin and asa
- complete pre-op studies
- echo 04/04-Left ventricular ejection fraction is 60-65%, by visual assessment. Normal
regional wall motion.Normal right ventricular size and function.
Likely moderate to severe, eccentric mitral regurgitation.
Trace tricuspid regurgitation. Estimated pulmonary artery pressure of 25-30
mmHg. progressive mitral regurgitation is
noted.
- completed carotid US, vascular mapping US panorex and PFT's.
- DIAMANTE rescheduled for 04/07 due to anginal episode
- NPOpMn
- will need to be monitored in acute care setting prior to cabg
# Abdominal Pain/Pancreatitis
- ct a/p 04/06- Cholelithiasis. No CT findings to suggest acute cholecystitis. no CT findings to suggest pancreatitis.
Moderate to severe atrophy of the right kidney, moderate PAD
- start clears
- cont bowel regimin
- NPOpMN
#HTN
- stable monitor continue metoprolol, losartan.
#HLD
-Continue rosuvastatin 20 mg daily.
#DM
- Uip6u-9.0
- metformin on hold
- cont Lantus 10->12 q hs with 4->5 NovoLog q ac
- appreciate DM LIQUEFIER educator input
- cont SSI
- monitor AccuCheck closely
- farxiga on DC
# Depression/Anxiety-
- cont Lexapro
- cont Ativan prn
Time spent coordinating care, review of plan of care with resident, personally reviewed records in EMR, med rec, consults, notes, labs, radiology, d/w nursing, cardiology, � 60 mins
Original Note:
Today's Communication/Plan
-
Patient will be given medication to help with Bowel movement.
Assessment / Plan
Assessment / Plan
Assessment:
Patient is a 68-year old woman with history of coronary artery disease. Patient came to the ED on 04/01 with left shoulder discomfort and pain radiating down her arm. Patient took nitroglycerin at home for prompt relief but presented to the hospital
after the episode recurred. Patient was scheduled for cardiac catheterization which was performed successfully on 04/03.
Plan:
# Multivessel CAD/NSTEMI
- s/p cardiac cath on 04/03- Showed Left dominant circulation with critical, 90% in-stent restenosis of the ostial/proximal circumflex stent, a chronic total occlusion of the LPDA, and moderate, occlusive tandem lesions in the LAD (30% ostial, 40%
mid and 50-60% mid/distal, IFR = 0.84).
- appreciate IC and CT surg input
- scheduled tentatively for CABG on 04/10 after Plavix washout
- h/o PCI of ostial/proximal and mid LCx 07/18/23.
- plavix held, continue hep gtt, monitor aptt closely
- cont metoprolol, rosuvastatin and asa
- complete pre-op studies
- echo 04/04-Left ventricular ejection fraction is 60-65%, by visual assessment. Normal regional wall motion. Normal right ventricular size and function.
Likely moderate to severe, eccentric mitral regurgitation.
Trace tricuspid regurgitation. Estimated pulmonary artery pressure of 25-30
mmHg. progressive mitral regurgitation is noted.
- completed carotid US, vascular mapping US and PFT's.
- will need to be monitored in acute care setting prior to cabg
- ECG with acute ST depression in V2-V6
- As per Cardiology
- Continue IV Nitroglycerin
- Continue IV Heparin @ 1550 units/hr (Ptt was 72.9 at 6 pm and rate was increased)
- Ptt was 72.9 at 6 pm and rate was increased Ptt (02.18 am 134.3) Next check 8am (97.6)
- DIAMANTE for evaluation cancelled today due to CP and GI issues. Will be done Wed-
# Unstable Angina-
- patient started on IV nitroglycerin 04/05
- EKG showed ST depression in leads v2 to v6. It has now resolved
- Continue GTT
- Continue all other meds
- may need surgery sooner than later if continues
- troponins were negative twice in a row
- CT surg and cards input appreciated
Abdominal Pain
-As per advanced registered nurse- Lactulose 30cc +bottle mag citrate
-Lipase levels increased, patients sent for abdominal CT scan w/ oral+IV contrast
Essential HTN:
-Continue metoprolol, losartan
-Hold losartan for 2 days prior to OR date
DM2:
- Nmz6k-3.0
- controlled with insulin regimen
- metformin on hold
- cont new Lantus 12 units with 4 NovoLog q ac
- appreciate DM educator input
- cont SSI
- monitor AccuCheck closely
- farxiga on DC
- Diabetic diet
- Monitor Blood sugar levels for glycemic control
Hyperlipidemia:
-Continue Rosuvastatin 20mg Daily
Anxiety/Depression:
-Cont Lexapro
-Lorazepam 0.5mg given as needed
FULL/Heparin gtt
Anticipated Discharge: > 48 hours
Subjective/Interval History
-
Date of Service: April 06, 2024
Patient has been feeling well. No adverse events over night.
Objective Data
-
Labs:
Laboratory Results
04/06/24 04/06/24
03:18 06:17
APTT 86.3 H
Sodium 136
Potassium 4.1
Chloride 107
Carbon Dioxide 25
BUN 25 H
Creatinine 0.9
Glucose 155 H
Calcium 9.5
Total Bilirubin 0.4 Pending
AST 23 Pending
ALT 23 Pending
Alkaline Phosphatase 56 Pending
Vital Signs:
Vital Signs
Temp Pulse Resp BP Pulse Ox
97.7 F 63 20 110/53 99
04/06/24 08:07 04/06/24 06:00 04/06/24 08:07 04/06/24 03:08 04/06/24 08:07
I&O
04/05/24 04/06/24 04/07/24
06:59 06:59 06:59
Intake Total 162.0 / 336.0 576 / 576
Balance 162.0 / 336.0 576 / 576
Review of Systems
-
History Source: Patient
Constitutional: Denies Fever or No Appetite
Respiratory: Denies Cough, Trouble Breathing or Wheezing
Cardiac: Denies Chest Pain or Palpitations
Abdomen/GI: Denies Abdominal Pain
Psych: Denies Anxious
Physical Exam
-
General: Well Developed, Well Nourished and No Apparent Distress
Respiratory: Clear to Auscultation and Non Labored Respirations
Cardiac: Regular Rhythm and S1/S2
GI: Soft, Nontender and Nondistended
Musculoskeletal: No Clubbing, No Cyanosis and No Edema
Skin: Warm and Normal Turgor
Neuro: Awake, Alert, Oriented and AO x 3
Psych: Calm
Data Reviewed
-
Labs: Labs Reviewed by me, Discussed with Physician and Discussed with Patient
[2024-04-06 08:12] LABS: Glucose - Point of Care 147 mg/dl (70-99)
[2024-04-06] MEDS: TOPROL XL 50 MG PO (08:36)
[2024-04-06] MEDS: LEXAPRO 20 MG PO (08:36)
[2024-04-06] MEDS: COZAAR 100 MG PO (08:36)
[2024-04-06] MEDS: DULCOLAX 10 MG RECTAL (08:36)
[2024-04-06] MEDS: ASPIR LOW (ENTERIC COATED) 81 MG PO (08:37)
[2024-04-06] MEDS: NOVOLOG FLEXPEN-LOW RESISTANCE SC ×3 (08:38→17:40)
[2024-04-06] MEDS: NOVOLOG FLEXPEN 5 UNITS SC ×2 (08:38→18:20)
--- NOTE | 2024-04-06 08:51 | PN.DE.MGMTRT ---
Insulin Management
- -
04/06/2024: Diabetes management Consult Follow up
Patient admitted with left sided shoulder pain/chest heaviness and one low level (altamirano zone) troponin.
PMH: CAD s/p NSTEMI 07/18/23 s/p REINALDO, HTN, HLD, Solitary Functioning Kidney, Xtrof-Yermvxesr-Vlmod Syndrome, Anxiety / Depression and NIDDM.
A1C 7.0%, Cr 0.9, eGFR >60. Was taking Metformin 1000 mg BID and Mounjaro 12.5mg Q .
Patient awake, alert and oriented resting in bed, family at bedside. Able to discuss diabetes management. Patient currently using Dex4vets G6 CGM.
AC NovoLog increased to 5 units and Lantus increased to 12 units @ HS. with low corrective with meals.
04/05 Premeal range 157 to 186. Fasting glucose 04/06 147. Will make no change to hs lantus to 12 units and ac novolog to 5 units.
Discussed with patient upcoming surgery and insulin infusion. Discussed adding Farxiga to regimen post operatively, she is agreeable.
Will follow and make further adjustments if necessary
Diabetes History
- -
Type of Diabetes: 2
Pre-Admission Diabetes Regimen
04/05/24 04/06/24
09:37 03:18
Creatinine 0.9 0.9
Lab Results
Hemoglobin A1c 7.0 % (4.0-5.6) H 04/01/24 04:16
Insulin Pump Settings
IP Diabetes Regimen
04/05/24 04/05/24 04/05/24
09:37 13:15 17:34
Glucose 174 H
POC Glucose 157 H 186 H
04/05/24 04/06/24 04/06/24
22:28 03:18 06:44
Glucose 155 H
POC Glucose 169 H 153 H
04/06/24
08:11
Glucose
POC Glucose 147 H
Meal type: Breakfast
Amount consumed: 0
Patient Education
[2024-04-06 09:54] LABS: % Basophils 0.3 % (0-2); % Eosinophils 1.9 % (0-6); % Immature Granulocytes 0.3 % (0-0.5); % Lymphocytes 20.9 % (20.5-51.1); % Monocytes 7.2 % (1.7-9.3); % Neutrophils 69.4 % (42.2-75.2); Absolute Eosinophils 0.2 10^3/uL (0-0.7); Absolute Lymphocytes 1.9 10^3/uL (1.2-3.4); Absolute Monocytes 0.7 10^3/uL (0.1-0.6); Absolute Neutrophils 6.4 10^3/uL (1.4-6.5); Hematocrit 30.9 % (37.0-47.0); Hemoglobin 10.7 g/dL (12.0-16.0); Mean Corp Hgb Conc. 34.6 g/dL (33.0-37.0); Mean Corpuscular Hgb 31.8 pg (27.0-31.0); Mean Corpuscular Volume 91.7 fL (81.0-99.0); Mean Platelet Volume 9.8 fL (7.4-10.4); Nucleated Red Blood Cells % 0 %; Platelet Count 254 10^3/uL (130-400); Red Blood Cell Count 3.37 10^6/uL (4.20-5.40); White Blood Cell Count 9.2 10^3/uL (4.8-10.8)
[2024-04-06 10:23] LABS: ALT (SGPT) 23 U/L (0-35); AST (SGOT) 22 U/L (14-36); Albumin 3.9 g/dl (3.5-5.0); Alkaline Phosphatase 60 U/L (38-126); Direct Bilirubin 0.1 mg/dl (0.0-0.4); Total Bilirubin 0.5 mg/dl (0.2-1.3); Total Protein 6.4 g/dl (6.3-8.2)
[2024-04-06 11:07] VITALS: BP 123/62
--- NOTE | 2024-04-06 11:30 | PTCARENOTE ---
Pt reported 'excellent relief' after getting suppository. Pt had a large formed BM & then reports 2 smaller soft BM's later this AM. Pt reports improved pain in LLQ of her abd. Pt ambulating frequently in rm & halls.
--- NOTE | 2024-04-06 12:12 | CM ---
Chart reviewed. Patient is OOB ambulating in the hallway. Patient is independent of ADLS, lives with her in a apartment, elevator access, 0 DME. Plan is for the patient to return home with CT Transitional RN. CM to follow
[2024-04-06 12:18] LABS: Glucose - Point of Care 206 mg/dl (70-99)
--- NOTE | 2024-04-06 14:00 | PTCARENOTE ---
CT abd ordered for pt & when this RN went in to speak w/pt re: scan, pt became visibly upset & started to cry. Pt stated she was never told she needed a CT scan & is questioning the need since she is no longer having abd pain & has been moving her
bowels. This RN messaged the ordering Dr & order was cancelled for now.
Shortly after, CT scan was reordered & hospitalist & CT surgery PA in to see pt to explain the reason for the exam. Pt agreeable to test, but became very tearful when speaking w/this RN. Emotional support provided and PRN PO Ativan administered
as ordered. Hospital maintenance helper utility engineer in to see pt & pt appears to be less upset at this time. Pt has started drinking CT contrast as ordered w/plan for the scan around 1600. Plan of care ongoing.
[2024-04-06] MEDS: ATIVAN 0.5 MG PO (14:09)
[2024-04-06] MEDS: OMNIPAQUE 50 ML PO (14:09)
[2024-04-06 14:12] LABS: Glucose - Point of Care 149 mg/dl (70-99)
[2024-04-06] MEDS: NOVOLOG FLEXPEN SC (14:13)
[2024-04-06 16:02] VITALS: BP 129/86
--- NOTE | 2024-04-06 16:34 | PTCARENOTE ---
Pt sent via stretcher for CT scan w/heparin drip infusing as ordered.
[2024-04-06 17:33] LABS: Glucose - Point of Care 104 mg/dl (70-99)
[2024-04-06] MEDS: HEPARIN 25000 UNITS/250 ML IV (17:39)
[2024-04-06 19:11] VITALS: BP 105/50
[2024-04-06] MEDS: SENOKOT-S PO (20:28)
[2024-04-06 22:05] LABS: Glucose - Point of Care 199 mg/dl (70-99)
[2024-04-06 22:06] VITALS: BP 107/69
[2024-04-06] MEDS: CRESTOR 20 MG PO (22:43)
[2024-04-06] MEDS: LANTUS 0.12 UNITS SC (22:43)
[2024-04-07] VITALS (10 sets, daily range): BP systolic 102–127; BP diastolic 45–89; BMI 28.5
--- NOTE | 2024-04-07 03:29 | PTCARENOTE ---
Pt rec'd at change of shift, on TELE monitor in NSR with hr in the 70's. Pt NPO at midnight for DIAMANTE in AM 8/2. Pt is currently CP free and denies any discomfort. Pt agreed to notify RN of any discomfort and has call leung in reach. Plan of care
ongoing.
[2024-04-07 05:26] LABS: Hematocrit 29.7 % (37.0-47.0); Hemoglobin 10.4 g/dL (12.0-16.0); Mean Corpuscular Hgb 31.6 pg (27.0-31.0); Mean Corpuscular Volume 90.3 fL (81.0-99.0); Mean Platelet Volume 9.8 fL (7.4-10.4); Platelet Count 258 10^3/uL (130-400); Red Blood Cell Count 3.29 10^6/uL (4.20-5.40); Red Cell Dist. Width 12.8 % (11.5-14.5); White Blood Cell Count 7.3 10^3/uL (4.8-10.8)
[2024-04-07 05:34] LABS: APTT 91.6 Sec (23.4-35.0)
[2024-04-07 06:06] LABS: Blood Urea Nitrogen 27 mg/dl (7-17); Calcium 9.6 mg/dl (8.4-10.2); Carbon Dioxide 25 mmol/L (22-30); Chloride 107 mmol/L (98-107); Estimated Creatinine Clearance 71 ml/min; Glucose 146 mg/dl (70-99); Lipase 446 U/L (23-300); Sodium 138 mmol/L (135-145); eGFR > 60.00
--- NOTE | 2024-04-07 07:19 | W.PN.HOSP.TC ---
Addendum entered and electronically signed by Irving Keith MD 04/07/24 20:48:
Attending Addendum-
I saw and evaluated the patient. I reviewed the resident�s note and agree with findings and plan as documented in the resident�s note. Sub: NAEON, abd pain improved. Currently CP free. Throat feels 'scratchy' after DIAMANTE. Full 12 point ROS reviewed
and negative except as documented Exam: Vitals reviewed in chart GEN-NAD heart RRR lungs clear abd mild TTP LLQ no rebound or guarding. Ext right wrist pulses intact, good social services director strength. Plan:
# Unstable Angina-
- last episode on 04/05
- cont nitro gtt
- ekg with st depression in v2->v6 now resolved
- trop neg x 2
- CT surg and cards input appreciated
- cont care in IVU
# Multivessel CAD and MV regurgitation
- s/p cardiac cath 04/03- Left dominant circulation with critical, 90% in-stent restenosis of the ostial/proximal circumflex stent, a chronic total occlusion of the LPDA, and moderate, occlusive tandem lesions in the LAD (30% ostial, 40% mid and
50-60% mid/distal, IFR = 0.84).
- for CABG and NOW MVr on 04/11 Dr. Landry after Plavix washout
- h/o PCI of ostial/proximal and mid LCx 07/18/23.
- Plavix on hold , continue hep gtt, monitor aptt closely
- cont metoprolol, rosuvastatin and asa
- complete pre-op studies
- echo 04/04
- completed carotid US, vascular mapping US panorex and PFT's.
- DIAMANTE-04/07-Normal biventricular size and systolic function without regional wall motion
abnormality. Estimated LVEF 60-65%.
Thickened mitral valve leaflets. The posterior leaflet is mildly tethered.
Moderate mitral regurgitation.
Compared to TTE 04/04/24: MR looks moderate, compared to moderate/severe on
prior.
- continue close observation in IVU
# Abdominal Pain/Pancreatitis
- resolving
- ct a/p 04/06- Cholelithiasis. No CT findings to suggest acute cholecystitis. no CT findings to suggest pancreatitis.
Moderate to severe atrophy of the right kidney, moderate PAD
- advance diet after DIAMANTE
- cont bowel regimen
- NPOpMN on 04/10
#HTN
- stable monitor continue metoprolol, losartan.
#HLD
-Continue rosuvastatin 20 mg daily.
#DM
- Tee1s-0.0
- metformin on hold
- cont Lantus 10->12 q hs with 4->5 NovoLog q ac
- appreciate DM CONTROL CLERK SUBASSEMBLY educator input
- cont SSI
- monitor AccuCheck closely
- farxiga on DC
# Depression/Anxiety-
- cont Lexapro
- cont Ativan prn
Time spent coordinating care, review of plan of care with resident, personally reviewed records in EMR, med rec, consults, notes, labs, radiology, d/w nursing, cardiology, � 55 mins
Original Note:
Today's Communication/Plan
-
Continue management with current medication.
Assessment / Plan
Assessment / Plan
Assessment:
Patient is a 68-year old woman with history of coronary artery disease. Patient came to the ED on 04/01 with left shoulder discomfort and pain radiating down her arm. Patient took nitroglycerin at home for prompt relief but presented to the hospital
after the episode recurred. Patient was scheduled for cardiac catheterization which was performed successfully on 04/03.
Plan:
# Multivessel CAD/NSTEMI
- s/p cardiac cath on 04/03- Showed Left dominant circulation with critical, 90% in-stent restenosis of the ostial/proximal circumflex stent, a chronic total occlusion of the LPDA, and moderate, occlusive tandem lesions in the LAD (30% ostial, 40%
mid and 50-60% mid/distal, IFR = 0.84).
- appreciate IC and CT surg input
- scheduled tentatively for CABG on 04/10 after Plavix washout
- h/o PCI of ostial/proximal and mid LCx 07/18/23.
- plavix held, continue hep gtt, monitor aptt closely
- cont metoprolol, rosuvastatin and asa
- complete pre-op studies
- echo 04/04-Left ventricular ejection fraction is 60-65%, by visual assessment. Normal regional wall motion. Normal right ventricular size and function.
Likely moderate to severe, eccentric mitral regurgitation.
Trace tricuspid regurgitation. Estimated pulmonary artery pressure of 25-30
mmHg. progressive mitral regurgitation is noted.
- completed carotid US, vascular mapping US and PFT's.
- will need to be monitored in acute care setting prior to cabg
- ECG with acute ST depression in V2-V6
- As per Cardiology
- Continue IV Nitroglycerin
- Continue IV Heparin @ 1550 units/hr (Ptt was 72.9 at 6 pm and rate was increased)
- Ptt was 72.9 at 6 pm and rate was increased Ptt (02.18 am 134.3) Next check 8am (97.6)
# Unstable Angina-
- patient started on IV nitroglycerin 04/05
- EKG showed ST depression in leads v2 to v6. It has now resolved
- Continue GTT
- Continue all other meds
- may need surgery sooner than later if continues
- troponins were negative twice in a row
- CT surg and cards input appreciated
-Per Cardiology, input appreciated
- Continue ASA/UFH/IV NTG
#Mitral regurgitation
- moderate amount found on DIAMANTE (04/07)
- CT Surgery discussed CABG and MV repair for next week
#Moderate to severe vascular calcification
-Found on CT Scan (04/06)
-Counseled patient, monitoring
Abdominal Pain
-Ct a/p 04/06- Cholelithiasis. No CT findings to suggest acute cholecystitis. no CT findings to suggest pancreatitis.
Moderate to severe atrophy of the right kidney, moderate PAD
- cont bowel regimen
Essential HTN:
-Continue metoprolol, losartan
-Hold losartan for 2 days prior to OR date
DM2:
- Hmy4k-9.0
- controlled with insulin regimen
- metformin on hold
- appreciate DM educator input
- cont SSI
- monitor AccuCheck closely
- farxiga on DC
- Diabetic diet
- Monitor Blood sugar levels for glycemic control
- cont new Lantus 12 units with 5 NovoLog q ac
Hyperlipidemia:
-Continue Rosuvastatin 20mg Daily
Anxiety/Depression:
-Cont Lexapro
-Lorazepam 0.5mg given as needed
FULL/Heparin gtt
Anticipated Discharge: > 48 hours
Subjective/Interval History
-
Date of Service: April 07, 2024
Patient has been feeling well this morning, no adverse events overnight. Patient frustrated at having to stay at the hospital for such a long time awaiting her surgery.
Objective Data
-
Labs:
Laboratory Results
04/07/24
05:04
WBC 7.3
Hgb 10.4 L
Hct 29.7 L
Plt Count 258
APTT 91.6 H
Sodium 138
Potassium 5.0
Chloride 107
Carbon Dioxide 25
BUN 27 H
Creatinine 0.8
Glucose 146 H
Calcium 9.6
Vital Signs:
Vital Signs
Temp Pulse Resp BP Pulse Ox
97.9 F 70 20 114/58 100
04/07/24 06:57 04/07/24 05:25 04/07/24 06:57 04/07/24 04:38 04/07/24 06:57
I&O
04/06/24 04/07/24 04/08/24
06:59 06:59 06:59
Intake Total 576 / 576 402 / 402
Balance 576 / 576 402 / 402
Review of Systems
-
History Source: Patient
Constitutional: Denies Fever, No Appetite or Fatigue
Respiratory: Denies Cough, Trouble Breathing or Wheezing
Cardiac: Denies Chest Pain, Diaphoresis or Palpitations
Abdomen/GI: Denies Abdominal Pain, Nausea or Vomiting
Physical Exam
-
General: Well Developed, Well Nourished and No Apparent Distress
Respiratory: Clear to Auscultation and Non Labored Respirations
Cardiac: Regular Rhythm and S1/S2
GI: Soft, Nontender, Nondistended and Normal Bowel Sounds
Musculoskeletal: No Clubbing, No Cyanosis and No Edema
Skin: Warm and Dry
Neuro: Awake, Alert, Oriented, AO x 3 and No Motor Deficits
Psych: Calm
Data Reviewed
-
Diagnostic Radiology: Report Reviewed by me, Discussed with Physician, Discussed with Patient and Discussed with Family
CT Scan: Report Reviewed by me, Discussed with Physician, Discussed with Patient and Discussed with Family
Ultrasound: Report Reviewed by me, Discussed with Physician, Discussed with Patient and Discussed with Family
Medical Tests (Nuc Med, Echo etc): Report Reviewed by me, Discussed with Physician, Discussed with Patient and Discussed with Family
Labs: Labs Reviewed by me, Discussed with Physician, Discussed with Patient and Discussed with Family
[2024-04-07 07:38] LABS: Glucose - Point of Care 157 mg/dl (70-99)
--- NOTE | 2024-04-07 07:40 | PN.DE.MGMTRT ---
Insulin Management
- -
04/07/2024: Diabetes management Consult Follow up
Patient admitted with left sided shoulder pain/chest heaviness and one low level (altamirano zone) troponin.
PMH: CAD s/p NSTEMI 07/18/23 s/p REINALDO, HTN, HLD, Solitary Functioning Kidney, Kbwfl-Dgvycsmbj-Ebeqs Syndrome, Anxiety / Depression and NIDDM.
A1C 7.0%, Cr 0.9, eGFR >60. Was taking Metformin 1000 mg BID and Mounjaro 12.5mg Q .
Patient awake, alert and oriented resting in bed, family at bedside. Able to discuss diabetes management. Patient currently using DexCom G6 CGM.
AC NovoLog increased to 5 units and Lantus increased to 12 units @ HS. with low corrective with meals.
04/06 Premeal range 104 to 199. Fasting glucose 04/07 146. Will make no change to hs lantus to 12 units and ac novolog to 5 units. NPO for procedure this AM.
Discussed with patient upcoming surgery and insulin infusion. Discussed adding Farxiga to regimen post operatively, she is agreeable.
Will follow and make further adjustments if necessary
Diabetes History
- -
Type of Diabetes: 2
Pre-Admission Diabetes Regimen
04/07/24
05:04
Creatinine 0.8
Lab Results
Hemoglobin A1c 7.0 % (4.0-5.6) H 04/01/24 04:16
Insulin Pump Settings
IP Diabetes Regimen
04/06/24 04/06/24 04/06/24
08:11 12:17 14:11
Glucose
POC Glucose 147 H 206 H 149 H
04/06/24 04/06/24 04/07/24
17:31 22:03 05:04
Glucose 146 H
POC Glucose 104 H 199 H
04/07/24
07:37
Glucose
POC Glucose 157 H
Meal type: Dinner
Meal type: Breakfast
Amount consumed: 100%
Amount consumed: 100%
Patient Education
--- NOTE | 2024-04-07 09:20 | W.PN.CD ---
Today's Communication / Plan
-
Impression/Plan: 68 y/o female with HTN, HLD, NIDDM and CAD s/p prior PCI to the ostial/proximal and mid LCx (07/2023) admitted with left sided shoulder pain/chest pain. Found to have multivessel coronary artery disease on cardiac catheterization
04/03/2024.
# Multivessel CAD
-Previous NSTEMI with PCI of ostial/proximal and mid LCx (Xience Skypoint 4.0 x 28 REINALDO) on 07/18/23.
-Presented with [place]- peak trop 0.036
- Had CP/ischemic ECG changes 04-04
- Multivessel CAD- CABG planned after plavix washout
- Continue ASA/UFH/IV NTG
-close monitoring of labs and tele
#Mitral regurgitation
-moderate DIAMANTE on 04/07
-to discuss CABG and MV repair for next week with CT surgery
#Abdominal discomfort.
- improved
#HTN
-Controlled.
-Continue current medications.
#HLD
-Chronic, stable.
-Total cholesterol = 126, LDL = 47, HDL = 54, Triglycerides = 128.
-Continue rosuvastatin 20 mg daily.
#DM
-Hemoglobin A1c 7.0.
-Holding metformin for surgery.
Impression / Plan
-
continue ASA, heparin drip, nitro drip
to discuss CABG and MV repair for next week with CT surgery
Physical Exam
Vital Signs/Labs
Vital Signs
Temp Pulse Resp BP Pulse Ox
97.9 F 70 20 114/58 100
04/07/24 06:57 04/07/24 05:25 04/07/24 06:57 04/07/24 04:38 04/07/24 06:57
04/06/24 04/07/24 04/08/24
06:59 06:59 06:59
Actual Weight 78.2 kg 77.7 kg
04/07/24 05:04
04/07/24 05:04
APTT 91.6 Sec (23.4-35.0) H 04/07/24 05:04
Triglycerides 128 mg/dl (10-149) 04/01/24 04:16
LDL Cholesterol, Calc 47 mg/dl 04/01/24 04:16
VLDL Cholesterol, Calc 25 mg/dl (0-30) 04/01/24 04:16
HDL Cholesterol 54 mg/dl 04/01/24 04:16
LAB Results
04/05/24 04/05/24
09:38 17:31
Troponin I < 0.012 < 0.012
Physical Exam
Constitutional: No acute distress and Comfortable
EENT: Moist mucous membranes
Cardiovascular: Rhythm & rate is regular, Pedal edema is absent, JVD pressure is normal and Systolic murmur present
Respiratory: Respiratory effort normal and Lungs clear to auscul.
GI: Soft, Distention absent and Flat
Neuro/Psych: AO x 3
Data Reviewed
-
Date of Service: April 07, 2024
Echo: Tracing Personally Visualized and interpreted (per note)
Labs: Labs Reviewed by me
[2024-04-07] MEDS: ASPIR LOW (ENTERIC COATED) 81 MG PO (09:42)
[2024-04-07] MEDS: SENOKOT-S 1 TABLET PO ×2 (09:42→20:12)
[2024-04-07] MEDS: LEXAPRO 20 MG PO (09:43)
[2024-04-07] MEDS: COZAAR 100 MG PO (09:43)
[2024-04-07] MEDS: TOPROL XL 50 MG PO (09:43)
[2024-04-07 10:25] LABS: Glucose - Point of Care 171 mg/dl (70-99)
[2024-04-07] MEDS: NOVOLOG FLEXPEN-LOW RESISTANCE SC (10:31)
[2024-04-07] MEDS: NOVOLOG FLEXPEN SC (10:31)
[2024-04-07] MEDS: NOVOLOG FLEXPEN-LOW RESISTANCE 1 UNITS SC ×2 (10:42→18:23)
[2024-04-07] MEDS: HEPARIN 25000 UNITS/250 ML IV (10:43)
[2024-04-07] MEDS: NOVOLOG FLEXPEN 5 UNITS SC ×3 (10:43→18:22)
--- NOTE | 2024-04-07 12:08 | CM ---
Chart reviewed. Patient is independent of ADLS, lives with her in a apartment, elevator access, 0 DME. Patient is going for a CABG/MVR on 04/11. Plan is for the patient to return home with CT Transitional RN. CM to follow
[2024-04-07] MEDS: NOVOLOG FLEXPEN-LOW RESISTANCE 2 UNITS SC (12:55)
[2024-04-07 12:57] LABS: Glucose - Point of Care 222 mg/dl (70-99)
--- NOTE | 2024-04-07 13:15 | W.PN.UPDATE ---
Update Note
Progress Note Update
Procedure Type:�CABG + MVr
PERIOPERATIVE OUTCOME ESTIMATE %
Operative Mortality 2.42%
Morbidity & Mortality 16.5%
Stroke 2.56%
Renal Failure 4.73%
Reoperation 3.91%
Prolonged Ventilation 11.4%
Deep Sternal Wound Infection 0.622%
Long Hospital Stay (>14 days) 12.5%
Short Hospital Stay (<6 days)* 16.8%
*higher values reflect a better outcome
Clinical Summary
Planned Surgery: CABG + MVr, Urgent, First cardiovascular surgery
Demographics: 68 year old, White, female, 78kg, 165cm, BMI: 28.6 kg/m�
Insurance/Payor: Commercial
Lab Values: Creatinine: 0.8 mg/dL, Hematocrit: 29.7%, WBC Count: 7.3 10�/�L, Platelet Count: 171441 cells/�L
PreOp Medications: SHELBY Inhibitors/ARBs <=48 hrs, Insulin diabetes control
Substance Abuse: Former smoker, Alcohol use: 2-7 drinks/week
Risk Factors / Comorbidities: Insulin-dependent Diabetes Mellitus, Hypertension
Pulmonary RF: Mild CLD
Cardiac Status: NYHA Class II, Ejection Fraction = 60%
Coronary Artery Disease: 3 vessels diseased, Proximal LAD Stenosis >=70%, Unstable Angina, [place]: > 21 Days
Valve Disease: Moderate MR, Mild TR
--- NOTE | 2024-04-07 13:49 | PTCARENOTE ---
pt continues to be sr on the monitor, hr in the 60s, vss. pt back from DIAMANTE. pt is aaox3. pt offers no complaints at this time. heparin gtt running per protocol, see documentation. pt visiting w/ family and friends at bedside. pt educated on plan of
care for the evening. call leung within reach.
[2024-04-07] MEDS: ATIVAN 0.5 MG PO (14:24)
--- NOTE | 2024-04-07 15:43 | W.PN.UPDATE ---
Update Note
Progress Note Update
Patient seen with Dr. Landry. Patient is now scheduled for a CABG/MVr with Dr. Landry on 04/11/24. Continue heparin gtt. Consent obtained.
[2024-04-07 16:03] LABS: Glucose - Point of Care 180 mg/dl (70-99)
[2024-04-07] MEDS: ANESTHETIC LOZENGE 1 LOZENGE PO (16:52)
[2024-04-07] MEDS: OCEAN, SALINE MIST 50 SPRAYS NASAL (16:52)
[2024-04-07 18:04] LABS: Glucose - Point of Care 159 mg/dl (70-99)
--- NOTE | 2024-04-07 18:54 | PTCARENOTE ---
pt ordered extra dinner due to being NPO this am for testing. unscheduled insulin given as ordered, see documentation. heparin gtt running per protocol, see documentation. pt continues to be sr on the monitor, hr in the 90s. pt ambulating the halls
and tolerating well. pt educated on plan of care and pt verbalized understanding. call leung within reach.
[2024-04-07 21:28] LABS: Glucose - Point of Care 142 mg/dl (70-99)
[2024-04-07] MEDS: CRESTOR 20 MG PO (22:02)
[2024-04-07] MEDS: LANTUS 0.12 UNITS SC (22:02)
--- NOTE | 2024-04-08 02:12 | PTCARENOTE ---
Rec'd pt at change of shift. Pt discussed upcoming procedure on 04/11 and was able to verbalize understanding of procedure of RN. Pt on TELE monitor in NSR with occasional PVC's. Pt was ambulating on unit independently, without weakness or
SOB. Pt remains pain free with heparin ggt infusing at 1350 units per hour. Pt agreed to notify RN of any discomfort or pain. Pt currently resting in bed with call leung in reach. Plan of care ongoing.
[2024-04-08 02:26] VITALS: BMI 28.5
[2024-04-08 02:28] VITALS: BP 124/78
[2024-04-08] MEDS: OCEAN, SALINE MIST 1 SPRAYS NASAL (02:46)
[2024-04-08 02:59] LABS: Hemoglobin 10.6 g/dL (12.0-16.0); Mean Corp Hgb Conc. 35.3 g/dL (33.0-37.0); Mean Corpuscular Hgb 31.5 pg (27.0-31.0); Mean Corpuscular Volume 89.3 fL (81.0-99.0); Mean Platelet Volume 9.7 fL (7.4-10.4); Platelet Count 255 10^3/uL (130-400); Red Blood Cell Count 3.36 10^6/uL (4.20-5.40); Red Cell Dist. Width 13.1 % (11.5-14.5); White Blood Cell Count 8.6 10^3/uL (4.8-10.8)
[2024-04-08 03:05] LABS: Blood Urea Nitrogen 26 mg/dl (7-17); Calcium 9.8 mg/dl (8.4-10.2); Carbon Dioxide 24 mmol/L (22-30); Chloride 109 mmol/L (98-107); Estimated Creatinine Clearance 63 ml/min; Glucose 115 mg/dl (70-99); INR 1.04; PT 13.4 Sec (11.4-14.6); Potassium 4.3 mmol/L (3.5-5.1); Sodium 138 mmol/L (135-145); eGFR > 60.00
[2024-04-08 03:07] LABS: APTT 89.4 Sec (23.4-35.0)
[2024-04-08 03:20] LABS: % Basophils 0.5 % (0-2); % Eosinophils 2.7 % (0-6); % Immature Granulocytes 0.2 % (0-0.5); % Lymphocytes 34.3 % (20.5-51.1); % Monocytes 7.4 % (1.7-9.3); % Neutrophils 54.9 % (42.2-75.2); Absolute Eosinophils 0.2 10^3/uL (0-0.7); Absolute Monocytes 0.6 10^3/uL (0.1-0.6); Absolute Neutrophils 4.7 10^3/uL (1.4-6.5); Nucleated Red Blood Cells % 0 %
[2024-04-08] MEDS: HEPARIN 25000 UNITS/250 ML IV ×2 (06:10→23:44)
--- NOTE | 2024-04-08 07:10 | W.PN.HOSP.TC ---
Addendum entered and electronically signed by Irving Keith MD 04/08/24 19:27:
Attending Addendum-
I saw and evaluated the patient. I reviewed the resident�s note and agree with findings and plan as documented in the resident�s note. Sub: Feels anxious about procedure. Requesting ativan. Seen with family present. No other sxs. Full 12 point ROS
reviewed and negative except as documented Exam: Vitals reviewed in chart GEN-NAD heart RRR lungs clear abd Soft NT ND no rebound or guarding. Ext right wrist pulses intact, good imcu nurse strength. Plan:
# Unstable Angina-
- resolved
- last episode on 04/05
- nitro gtt dc'd
- ekg with st depression in v2->v6 now resolved
- trop neg x 2
- CT surg and cards input appreciated
- cont care in IVU
# Multivessel CAD and MV regurgitation
- s/p cardiac cath 04/03- Left dominant circulation with critical, 90% in-stent restenosis of the ostial/proximal circumflex stent, a chronic total occlusion of the LPDA, and moderate, occlusive tandem lesions in the LAD (30% ostial, 40% mid and
50-60% mid/distal, IFR = 0.84).
- for CABG and NOW MVr on 04/11 Dr. Landry
- h/o PCI of ostial/proximal and mid LCx 07/18/23.
- Plavix on hold , continue hep gtt, monitor aptt closely
- cont metoprolol, rosuvastatin and asa
- echo 04/04
- completed carotid US, vascular mapping US panorex and PFT's.
- DIAMANTE-04/07-Normal biventricular size and systolic function without regional wall motion
abnormality. Estimated LVEF 60-65%.
Moderate mitral regurgitation.
- NPOpMN 04/10
- continue close observation in IVU
# Abdominal Pain/Pancreatitis
- resolved
- ct a/p 04/06- Cholelithiasis. No CT findings to suggest acute cholecystitis or pancreatitis.
Moderate to severe atrophy of the right kidney, moderate PAD
- cont bowel regimen
- advance diet as tolerated
#HTN
- stable monitor continue metoprolol, losartan.
#HLD
-Continue rosuvastatin 20 mg daily.
#DM
- controlled
- Yqq1v-9.0
- metformin on hold
- cont Lantus 12 q hs + 5 NovoLog q ac
- cont SSI
- monitor AccuCheck closely
- farxiga on DC
# Depression/Anxiety-
- cont Lexapro
- increase Ativan prn frequency
Time spent coordinating care, review of plan of care with resident, personally reviewed records in EMR, med rec, consults, notes, labs, radiology, d/w nursing, family � 52 mins
Original Note:
Today's Communication/Plan
-
Continue management with current medications and continue monitoring
Assessment / Plan
Assessment / Plan
Assessment:
Patient is a 68-year old woman with history of coronary artery disease. Patient came to the ED on 04/01 with left shoulder discomfort and pain radiating down her arm. Patient took nitroglycerin at home for prompt relief but presented to the hospital
after the episode recurred. Patient was scheduled for cardiac catheterization which was performed successfully on 04/03.
Plan:
# Multivessel CAD/NSTEMI
- s/p cardiac cath on 04/03- Showed Left dominant circulation with critical, 90% in-stent restenosis of the ostial/proximal circumflex stent, a chronic total occlusion of the LPDA, and moderate, occlusive tandem lesions in the LAD (30% ostial, 40%
mid and 50-60% mid/distal, IFR = 0.84).
- appreciate IC and CT surg input
- scheduled tentatively for CABG on 04/10 after Plavix washout
- h/o PCI of ostial/proximal and mid LCx 07/18/23.
- plavix held, continue hep gtt, monitor aptt closely
- cont metoprolol, rosuvastatin and asa
- complete pre-op studies
- echo 04/04-Left ventricular ejection fraction is 60-65%, by visual assessment. Normal regional wall motion. Normal right ventricular size and function.
Likely moderate to severe, eccentric mitral regurgitation.
Trace tricuspid regurgitation. Estimated pulmonary artery pressure of 25-30
mmHg. progressive mitral regurgitation is noted.
- completed carotid US, vascular mapping US and PFT's.
- will need to be monitored in acute care setting prior to cabg
- ECG with acute ST depression in V2-V6
- As per Cardiology
- Continue IV Heparin @ 1550 units/hr
# Unstable Angina-
- patient started on IV nitroglycerin 04/05
- EKG showed ST depression in leads v2 to v6. It has now resolved
- Continue all other meds
- may need surgery sooner than later if continues
- troponins were negative twice in a row
- CT surg and cards input appreciated
- Per Cardiology, input appreciated
- Continue ASA/UFH/IV NTG
- Continue care in IVU
#Moderate to severe vascular calcification
-Found on CT Scan (04/06)
-Counseled patient, monitoring
Abdominal Pain
-Ct a/p 04/06- Cholelithiasis. No CT findings to suggest acute cholecystitis. no CT findings to suggest pancreatitis.
Moderate to severe atrophy of the right kidney, moderate PAD
- cont bowel regimen
-NPOpMN on 04/10
Essential HTN:
-Continue metoprolol, losartan
-Continue monitoring blood pressure
-Hold losartan for 2 days prior to OR date
DM2:
- Qrt4z-4.0
- controlled with insulin regimen
- metformin on hold
- appreciate DM TRIMMER BUFFING WHEEL input
- cont SSI
- monitor AccuCheck closely
- farxiga on DC
- Diabetic diet
- Monitor Blood sugar levels for glycemic control
- cont new Lantus 12 units with 5 NovoLog q ac
Hyperlipidemia:
-Continue Rosuvastatin 20mg Daily
Anxiety/Depression:
-Cont Lexapro
-Lorazepam 0.5mg q8 given as needed
FULL/Heparin gtt
Anticipated Discharge: > 48 hours
Subjective/Interval History
-
Date of Service: April 08, 2024
Patient has been feeling well overnight, no adverse events. Patient still a bit anxious about post surgery care especially with the new procedure added on top.
Objective Data
-
Labs:
Laboratory Results
04/08/24
02:44
WBC 8.6
Hgb 10.6 L
Hct 30.0 L
Plt Count 255
PT 13.4
INR 1.04
APTT 89.4 H
Sodium 138
Potassium 4.3
Chloride 109 H
Carbon Dioxide 24
BUN 26 H
Creatinine 0.9
Glucose 115 H
Calcium 9.8
Vital Signs:
Vital Signs
Temp Pulse Resp BP Pulse Ox
97.9 F 64 16 124/78 100
04/08/24 02:26 04/08/24 04:00 04/08/24 02:26 04/08/24 02:28 04/08/24 02:26
I&O
04/07/24 04/08/24 04/09/24
06:59 06:59 06:59
Intake Total 402 / 402 480 / 480
Balance 402 / 402 480 / 480
Review of Systems
-
History Source: Patient
Constitutional: Denies Fever, No Appetite, Fatigue or Sleep Disturbance
Respiratory: Denies Cough, Trouble Breathing or Wheezing
Cardiac: Denies Chest Pain, Diaphoresis or Palpitations
Abdomen/GI: Denies Abdominal Pain, Nausea or Vomiting
Genitourinary: Denies Dysuria, Frequency or Flank Pain
Musculoskeletal: Denies Joint Pain, Joint Swelling or Muscle Pain
Neuro: Denies Dizzy, Headache or Weakness
Hematologic / Lymphatic: Denies Bleeding or Bruising
Psych: Reports Anxious
Physical Exam
-
General: Well Developed, Well Nourished and No Apparent Distress
Respiratory: Clear to Auscultation and Non Labored Respirations
Cardiac: Regular Rhythm and S1/S2
Musculoskeletal: No Clubbing, No Cyanosis and No Edema
Skin: Warm and Dry
Neuro: Awake, Alert, Oriented, AO x 3 and No Motor Deficits
Psych: Anxious
Data Reviewed
-
Diagnostic Radiology: Report Reviewed by me and Discussed with Physician
CT Scan: Report Reviewed by me, Discussed with Physician and Discussed with Patient
MRI: Report Reviewed by me, Discussed with Physician and Discussed with Patient
Medical Tests (Nuc Med, Echo etc): Report Reviewed by me, Discussed with Physician and Discussed with Patient
Labs: Labs Reviewed by me, Discussed with Physician and Discussed with Patient
[2024-04-08 07:32] VITALS: BP 105/70
[2024-04-08 07:35] LABS: Glucose - Point of Care 143 mg/dl (70-99)
[2024-04-08] MEDS: NOVOLOG FLEXPEN-LOW RESISTANCE SC ×2 (08:11→14:26)
[2024-04-08] MEDS: NOVOLOG FLEXPEN 5 UNITS SC ×3 (08:11→17:44)
[2024-04-08] MEDS: LEXAPRO 20 MG PO (08:12)
[2024-04-08] MEDS: ASPIR LOW (ENTERIC COATED) 81 MG PO (08:12)
[2024-04-08] MEDS: TOPROL XL 50 MG PO (08:12)
[2024-04-08] MEDS: SENOKOT-S 1 TABLET PO ×2 (08:13→19:41)
[2024-04-08] MEDS: COZAAR PO (09:39)
[2024-04-08] MEDS: ATIVAN 0.5 MG PO (10:20)
--- NOTE | 2024-04-08 10:24 | W.PN.CD ---
Addendum entered and electronically signed by Jas Burt MD 04/08/24 11:30:
Patient seen and examined in collaboration with INFORMATION DIRECTOR; agree with below.
-The patient appears to be relatively stable from a cardiac standpoint; denies any chest pain currently.
-Continue heparin drip.
-CABG/mitral valve repair scheduled for 04/11/2024.
-Continue desk monitor.
Original Note:
Today's Communication / Plan
-
Con't IV heparin, await plavix washout
Monitor for recurrent symptoms
Plan CAB /MVr 04/11
Impression / Plan
-
Pt. denies CP, SOB palpitations
Impression/Plan: 68 y/o female with HTN, HLD, NIDDM and CAD s/p prior PCI to the ostial/proximal and mid LCx (07/2023) admitted with left sided shoulder pain/chest pain. Found to have multivessel coronary artery disease on cardiac catheterization
04/03/2024.
# Multivessel CAD
-Previous NSTEMI with PCI of ostial/proximal and mid LCx (Xience Skypoint 4.0 x 28 REINALDO) on 07/18/23.
-Presented with [place]- peak trop 0.036
- Had CP/ischemic ECG changes 04-04
- Multivessel CAD- CABG planned after plavix washout
- Continue ASA/UFH/
-close monitoring of labs and tele
#Mitral regurgitation
-moderate DIAMANTE on 04/07
-plan for CAB/MVr 04/11
#HTN
-Controlled.
-Continue current medications.
#HLD
-Chronic, stable.
-Total cholesterol = 126, LDL = 47, HDL = 54, Triglycerides = 128.
-Continue rosuvastatin 20 mg daily.
#DM
-Hemoglobin A1c 7.0.
-Holding metformin for surgery.
Physical Exam
Vital Signs/Labs
Vital Signs
Temp Pulse Resp BP Pulse Ox
97.9 F 69 12 105/70 96
04/08/24 07:00 04/08/24 08:12 04/08/24 07:00 04/08/24 08:12 04/08/24 07:00
04/07/24 04/08/24 04/09/24
06:59 06:59 06:59
Actual Weight 77.7 kg 77.8 kg
04/08/24 02:44
04/08/24 02:44
PT 13.4 Sec (11.4-14.6) 04/08/24 02:44
INR 1.04 04/08/24 02:44
APTT 89.4 Sec (23.4-35.0) H 04/08/24 02:44
Triglycerides 128 mg/dl (10-149) 04/01/24 04:16
LDL Cholesterol, Calc 47 mg/dl 04/01/24 04:16
VLDL Cholesterol, Calc 25 mg/dl (0-30) 04/01/24 04:16
HDL Cholesterol 54 mg/dl 04/01/24 04:16
LAB Results
04/05/24
17:31
Troponin I < 0.012
Physical Exam
Constitutional: No acute distress
Cardiovascular: Rhythm & rate is regular and Pedal edema is absent
Respiratory: Respiratory effort normal and Lungs clear to auscul.
GI: Soft, Non tender and Normal bowel sounds
Neuro/Psych: AO x 3
Other: Cath Site (R radial no hematoma , there is a palpable R radial pulse )
Data Reviewed
-
Date of Service: April 08, 2024
EKG: Other (Tele : NSR )
Medical Tests (PFT, Pathology etc): Discussed with Physician and Discussed with Patient
Labs: Labs Reviewed by me
[2024-04-08 11:08] VITALS: BP 99/61
[2024-04-08 14:25] LABS: Glucose - Point of Care 141 mg/dl (70-99)
[2024-04-08 15:10] VITALS: BP 103/59
[2024-04-08] MEDS: NOVOLOG FLEXPEN-LOW RESISTANCE 1 UNITS SC (17:43)
[2024-04-08 17:44] LABS: Glucose - Point of Care 191 mg/dl (70-99)
--- NOTE | 2024-04-08 18:06 | PTCARENOTE ---
pt is sr on the monitor, hr in the 80s, vss. pt offers no complaints at this time. heparin gtt running per protocol, see documentation. pt has been ambulating through the halls throughout the day and tolerating well. call leung within reach.
[2024-04-08 19:24] VITALS: BP 119/74
[2024-04-08 21:08] LABS: Glucose - Point of Care 223 mg/dl (70-99)
[2024-04-08] MEDS: LANTUS 0.12 UNITS SC (21:37)
[2024-04-08] MEDS: CRESTOR 20 MG PO (21:37)
[2024-04-08 22:53] VITALS: BP 113/59
[2024-04-09 02:09] VITALS: BP 128/85
[2024-04-09 02:39] VITALS: BMI 28.5
[2024-04-09 02:41] LABS: Hematocrit 28.6 % (37.0-47.0); Hemoglobin 10.3 g/dL (12.0-16.0); Mean Corpuscular Hgb 32.1 pg (27.0-31.0); Mean Corpuscular Volume 89.1 fL (81.0-99.0); Mean Platelet Volume 10.1 fL (7.4-10.4); Platelet Count 309 10^3/uL (130-400); Red Blood Cell Count 3.21 10^6/uL (4.20-5.40); Red Cell Dist. Width 12.9 % (11.5-14.5); White Blood Cell Count 7.2 10^3/uL (4.8-10.8)
--- NOTE | 2024-04-09 02:50 | PTCARENOTE ---
Pt. has no complaints of chest pain/discomfort, VSS, NSR 60's-80's on the monitor. Heparin infusing at 1350 units/hr . Pt. eager to have surgery on Wednesday; plan of care discussed. Pt. currently sleeping.
[2024-04-09 02:52] LABS: APTT 58.5 Sec (23.4-35.0)
[2024-04-09 03:25] LABS: APTT 89.4 Sec (23.4-35.0)
--- NOTE | 2024-04-09 03:29 | PTCARENOTE ---
Pt.s morning PTT drawn while starting a new IV; line had been flushed with saline; PTT resulted as 58.5 (oddly low as patient has been therapeutic for a couple of days now). Specimen redrawn via peripheral stick due to suspicion that first specimen
was diluted; results 89.4. Per protocol no rate change at this time as this is therapeutic.
[2024-04-09 06:55] VITALS: BP 120/66
--- NOTE | 2024-04-09 07:03 | W.PN.HOSP.TC ---
Addendum entered and electronically signed by Irving Keith MD 04/09/24 19:57:
Attending Addendum-
I saw and evaluated the patient. I reviewed the resident�s note and agree with findings and plan as documented in the resident�s note. Sub: Feels worried every morning. Seen with family present. No new sxs. Full 12 point ROS reviewed and negative
except as documented Exam: Vitals reviewed in chart GEN-NAD heart RRR lungs clear abd Soft NT ND no rebound or guarding. Ext right wrist pulses intact, good sand screener strength. Plan:
# Multivessel CAD and MV regurgitation
- s/p cardiac cath 04/03- Left dominant circulation with critical, 90% in-stent restenosis of the ostial/proximal circumflex stent, a chronic total occlusion of the LPDA, and moderate, occlusive tandem lesions in the LAD (30% ostial, 40% mid and
50-60% mid/distal, IFR = 0.84).
- for CABG with MVr on 04/11 Dr. Landry
- h/o PCI of ostial/proximal and mid LCx 07/18/23.
- Plavix on hold , continue hep gtt, monitor aptt closely
- cont metoprolol, rosuvastatin and asa
- DIAMANTE-04/07-Normal biventricular size and systolic function without regional wall motion
abnormality. Estimated LVEF 60-65%.
Moderate mitral regurgitation.
- NPOpMN 04/10
- continue close monitoring in IVU
# Unstable Angina-
- resolved
- episode on 04/05
- nitro gtt dc'd
- ekg with st depression in v2->v6 now resolved
- cont care in IVU
# Abdominal Pain/Pancreatitis
- resolved
- ct a/p 04/06- Cholelithiasis. No CT findings to suggest acute cholecystitis or pancreatitis.
Moderate to severe atrophy of the right kidney, moderate PAD
- cont bowel regimen
- advance diet as tolerated
#HTN
- stable monitor continue metoprolol, HOLD losartan-due to surgery.
#HLD
-Continue rosuvastatin 20 mg daily.
#DM
- controlled
- Yth9s-0.0
- metformin on hold due to surgery
- cont Lantus 12 q hs + 5 NovoLog q ac
- cont SSI
- monitor AccuCheck closely
- farxiga on DC
# Depression/Anxiety-
- cont Lexapro
- cont Ativan prn
Time spent coordinating care, review of plan of care with resident, personally reviewed records in EMR, med rec, consults, notes, labs, radiology, d/w nursing, family � 51 mins
Original Note:
Today's Communication/Plan
-
Holding Losartan, continue other medication and continue monitoring for any adverse events prior to surgery
Assessment / Plan
Assessment / Plan
Assessment:
Patient is a 68-year old woman with history of coronary artery disease. Patient came to the ED on 04/01 with left shoulder discomfort and pain radiating down her arm. Patient took nitroglycerin at home for prompt relief but presented to the hospital
after the episode recurred. Patient was scheduled for cardiac catheterization which was performed successfully on 04/03.
Plan:
# Multivessel CAD/NSTEMI
- s/p cardiac cath on 04/03- Showed Left dominant circulation with critical, 90% in-stent restenosis of the ostial/proximal circumflex stent, a chronic total occlusion of the LPDA, and moderate, occlusive tandem lesions in the LAD (30% ostial, 40%
mid and 50-60% mid/distal, IFR = 0.84).
- appreciate IC and CT surg input
- scheduled tentatively for CABG on 04/10 after Plavix washout
- h/o PCI of ostial/proximal and mid LCx 07/18/23.
- plavix held, continue hep gtt, monitor aptt closely
- cont metoprolol, rosuvastatin and asa
- complete pre-op studies
- echo 04/04-Left ventricular ejection fraction is 60-65%, by visual assessment. Normal regional wall motion. Normal right ventricular size and function.
Likely moderate to severe, eccentric mitral regurgitation.
Trace tricuspid regurgitation. Estimated pulmonary artery pressure of 25-30
mmHg. progressive mitral regurgitation is noted.
- completed carotid US, vascular mapping US and PFT's.
- will need to be monitored in acute care setting prior to cabg
- ECG with acute ST depression in V2-V6
- As per Cardiology
- Continue IV Heparin @ 1550 units/hr
- Continue care in IVU
- NPOpMN 04/10
# Unstable Angina-
- resolved
- patient started on IV nitroglycerin 04/05
- EKG showed ST depression in leads v2 to v6. It has now resolved
- Continue all other meds
- troponins were negative twice in a row
- CT surg and cards input appreciated
- Per Cardiology, input appreciated
- Continue ASA/UFH
- Continue care in IVU
#Moderate to severe vascular calcification
-Found on CT Scan (04/06)
-Counseled patient, monitoring
Abdominal Pain
-resolved
-Ct a/p 04/06- Cholelithiasis. No CT findings to suggest acute cholecystitis. no CT findings to suggest pancreatitis.
Moderate to severe atrophy of the right kidney, moderate PAD
- cont bowel regimen
- advance diet as tolerated
- NPOpMN on 04/10
Essential HTN:
-Continue metoprolol, losartan
-Stable, monitoring blood pressure
-Holding Losartan for surgery
DM2:
- Rze9c-2.0
- controlled with insulin regimen
- metformin on hold
- appreciate DM EVENT COORDINATOR MARKETING AND SALES input
- cont SSI
- monitor AccuCheck closely
- farxiga on DC
- Diabetic diet
- Monitor Blood sugar levels for glycemic control
- cont new Lantus 12 units with 5 NovoLog q ac
Hyperlipidemia:
-Continue Rosuvastatin 20mg Daily
Anxiety/Depression:
-Cont Lexapro
-Lorazepam 0.5mg q8 given as needed
FULL/Heparin gtt
Anticipated Discharge: > 48 hours
Subjective/Interval History
-
Date of Service: April 09, 2024
Patient has been feeling well, looking forward to getting the surgery over with on Wednesday.
Objective Data
-
Labs:
Laboratory Results
04/09/24 04/09/24
02:30 03:03
WBC 7.2
Hgb 10.3 L
Hct 28.6 L
Plt Count 309 D
APTT 58.5 H 89.4 H
Vital Signs:
Vital Signs
Temp Pulse Resp BP Pulse Ox
97.8 F 67 20 128/85 97
04/09/24 06:50 04/09/24 04:00 04/09/24 06:50 04/09/24 02:09 04/09/24 06:50
I&O
04/08/24 04/09/24 04/10/24
06:59 06:59 06:59
Intake Total 480 / 480 2238 / 2238
Balance 480 / 480 2238 / 2238
Review of Systems
-
Constitutional: Denies Fatigue, Sleep Disturbance or Chills
Respiratory: Denies Cough, Trouble Breathing or Wheezing
Cardiac: Denies Chest Pain, Diaphoresis, Palpitations or Syncope
Abdomen/GI: Denies Abdominal Pain, Nausea or Vomiting
Musculoskeletal: Denies Edema
Neuro: Denies Headache, Weakness or Numbness
Physical Exam
-
General: Well Developed, Well Nourished and No Apparent Distress
Respiratory: Clear to Auscultation and Non Labored Respirations
Cardiac: Regular Rhythm and S1/S2
Musculoskeletal: No Clubbing, No Cyanosis and No Edema
Neuro: Awake, Alert, Oriented and AO x 3
Data Reviewed
-
Diagnostic Radiology: Report Reviewed by me, Discussed with Physician and Discussed with Patient
Medical Tests (Nuc Med, Echo etc): Report Reviewed by me, Discussed with Physician and Discussed with Patient
Labs: Labs Reviewed by me, Discussed with Physician and Discussed with Patient
[2024-04-09 08:22] LABS: Glucose - Point of Care 157 mg/dl (70-99)
[2024-04-09] MEDS: COZAAR 100 MG PO (08:36)
[2024-04-09] MEDS: NOVOLOG FLEXPEN 5 UNITS SC ×3 (08:36→17:47)
[2024-04-09] MEDS: LEXAPRO 20 MG PO (08:36)
[2024-04-09] MEDS: NOVOLOG FLEXPEN-LOW RESISTANCE 1 UNITS SC ×2 (08:36→13:18)
[2024-04-09] MEDS: TOPROL XL 50 MG PO (08:37)
[2024-04-09] MEDS: SENOKOT-S 1 TABLET PO ×2 (08:37→20:19)
[2024-04-09] MEDS: ATIVAN 0.5 MG PO ×2 (08:37→17:51)
[2024-04-09] MEDS: ASPIR LOW (ENTERIC COATED) 81 MG PO (08:37)
[2024-04-09 10:15] LABS: ALT (SGPT) 27 U/L (0-35); AST (SGOT) 27 U/L (14-36); Albumin 3.8 g/dl (3.5-5.0); Alkaline Phosphatase 53 U/L (38-126); Blood Urea Nitrogen 22 mg/dl (7-17); Calcium 9.7 mg/dl (8.4-10.2); Carbon Dioxide 29 mmol/L (22-30); Chloride 105 mmol/L (98-107); Estimated Creatinine Clearance 63 ml/min; Glucose 217 mg/dl (70-99); Sodium 138 mmol/L (135-145); Total Bilirubin 0.3 mg/dl (0.2-1.3); Total Protein 6.3 g/dl (6.3-8.2); eGFR > 60.00
[2024-04-09 12:07] VITALS: BP 118/97
--- NOTE | 2024-04-09 12:55 | W.PN.CD ---
Today's Communication / Plan
-
-Will undergo CABG/MVR repair on 05/01/2024.
-Continue ASA/heparin drip.
-Continue telemetry.
Impression / Plan
-
Impression/Plan: 68 y/o female with HTN, HLD, NIDDM and CAD s/p prior PCI to the ostial/proximal and mid LCx (07/2023) admitted with left sided shoulder pain/chest pain. Found to have multivessel coronary artery disease on cardiac catheterization
04/03/2024. Subsequent echocardiogram revealed moderate mitral regurgitation.
#Multivessel CAD/moderate MR:
-Previous NSTEMI with PCI of ostial/proximal and mid LCx (Xience Skypoint 4.0 x 28 REINALDO) on 07/18/23.
-Presented with [place]- peak trop 0.036.
-Had CP/ischemic ECG changes 04/04/2024.
-Multivessel CAD- CABG planned after plavix washout.
-Will undergo CABG/MVR repair on 05/01/2024.
-Continue ASA/heparin drip.
-Continue telemetry.
-Continue rosuvastatin 20 mg daily.
#Mitral regurgitation
-moderate DIAMANTE on 04/07
-Will undergo CT surgery as above.
#HTN
-Remains controlled.
-Continue current medications.
#HLD
-Chronic, stable.
-Total cholesterol = 126, LDL = 47, HDL = 54, Triglycerides = 128.
-Continue rosuvastatin 20 mg daily.
#DM
-Hemoglobin A1c 7.0.
-Holding metformin for surgery.
Physical Exam
Vital Signs/Labs
Vital Signs
Temp Pulse Resp BP Pulse Ox
97.9 F 80 18 118/97 98
04/09/24 11:50 04/09/24 12:07 04/09/24 11:50 04/09/24 12:07 04/09/24 11:50
04/08/24 04/09/24 04/10/24
06:59 06:59 06:59
Actual Weight 77.8 kg 77.7 kg
04/09/24 02:30
04/09/24 09:46
PT 13.4 Sec (11.4-14.6) 04/08/24 02:44
INR 1.04 04/08/24 02:44
APTT 89.4 Sec (23.4-35.0) H 04/09/24 03:03
Triglycerides 128 mg/dl (10-149) 04/01/24 04:16
LDL Cholesterol, Calc 47 mg/dl 04/01/24 04:16
VLDL Cholesterol, Calc 25 mg/dl (0-30) 04/01/24 04:16
HDL Cholesterol 54 mg/dl 04/01/24 04:16
Physical Exam
Constitutional: No acute distress and Comfortable
EENT: Anicteric
Cardiovascular: Rhythm & rate is regular, Pedal edema is absent, Systolic murmur present (2/6) and S1S2 is normal
Respiratory: Respiratory effort normal and Lungs clear to auscul.
GI: Soft
Neuro/Psych: AO x 3
Other: Skin (Warm, dry, intact)
Data Reviewed
-
Date of Service: April 09, 2024
EKG: Tracing Personally Visualized and interpreted (Telemetry: Sinus rhythm)
Labs: Labs Reviewed by me
[2024-04-09 13:13] LABS: Glucose - Point of Care 154 mg/dl (70-99)
[2024-04-09] MEDS: TYLENOL 650 MG PO (13:17)
--- NOTE | 2024-04-09 13:24 | W.PN.UPDATE ---
Update Note
Progress Note Update
Allens test checked on left arm with pulse ox, result acceptable for planned radial artery harvest. Plans for CABG (TOVAR/SVG/LRA) + MV repair Wednesday 04/[address] Landry. Questions answered.
[2024-04-09 16:11] VITALS: BP 112/67
[2024-04-09 16:56] LABS: Glucose - Point of Care 201 mg/dl (70-99)
--- NOTE | 2024-04-09 17:39 | PTCARENOTE ---
pt is sr on the monitor, hr in the 60s, vss. pt denies cp at this time. pt c/o TEE, tylenol given as ordered. pt continues to be ambulating through the halls and tolerating well. heparin gtt running per protocol, see documentation. pt showered today.
pt visited with family at bedside. pt educated on plan of care and pt verbalized understanding. call leung within reach.
[2024-04-09] MEDS: NOVOLOG FLEXPEN-LOW RESISTANCE 300 UNITS SC (17:47)
[2024-04-09 18:52] VITALS: BP 112/67
[2024-04-09 22:28] VITALS: BP 130/64
[2024-04-09 22:28] LABS: Glucose - Point of Care 189 mg/dl (70-99)
[2024-04-09] MEDS: CRESTOR 20 MG PO (22:31)
[2024-04-09] MEDS: LANTUS 0.12 UNITS SC (22:31)
[2024-04-09] MEDS: HEPARIN 25000 UNITS/250 ML IV (23:54)
[2024-04-10] VITALS (9 sets, daily range): BP systolic 88–131; BP diastolic 43–84; BMI 28.6
[2024-04-10 04:57] LABS: APTT 112.3 Sec (23.4-35.0)
--- NOTE | 2024-04-10 06:03 | PTCARENOTE ---
Pt BP 92/44. Pt denies dizziness or lightheadedness. PATTERN MECHANIC made aware. No new orders at this time.
--- NOTE | 2024-04-10 06:56 | W.PN.HOSP.TC ---
Today's Communication/Plan
-
Patient will continue current medications and prepare for surgery tomorrow. NPOpMN 04/10
Assessment / Plan
Assessment / Plan
Assessment:
Patient is a 68-year old woman with history of coronary artery disease. Patient came to the ED on 04/01 with left shoulder discomfort and pain radiating down her arm. Patient took nitroglycerin at home for prompt relief but presented to the hospital
after the episode recurred. Patient was scheduled for cardiac catheterization which was performed successfully on 04/03.
Plan:
# Multivessel CAD/NSTEMI
- s/p cardiac cath on 04/03- Showed Left dominant circulation with critical, 90% in-stent restenosis of the ostial/proximal circumflex stent, a chronic total occlusion of the LPDA, and moderate, occlusive tandem lesions in the LAD (30% ostial, 40%
mid and 50-60% mid/distal, IFR = 0.84).
- appreciate IC and CT surg input
- scheduled tentatively for CABG on 04/10 after Plavix washout
- h/o PCI of ostial/proximal and mid LCx 07/18/23.
- plavix held, continue hep gtt, monitor aptt closely
- cont metoprolol, rosuvastatin and asa
- complete pre-op studies
- echo 04/04-Left ventricular ejection fraction is 60-65%, by visual assessment. Normal regional wall motion. Normal right ventricular size and function.
Likely moderate to severe, eccentric mitral regurgitation.
Trace tricuspid regurgitation. Estimated pulmonary artery pressure of 25-30
mmHg. progressive mitral regurgitation is noted.
- completed carotid US, vascular mapping US and PFT's.
- will need to be monitored in acute care setting prior to cabg
- ECG with acute ST depression in V2-V6
- As per Cardiology
- Continue IV Heparin @ 1550 units/hr
- Continue care in IVU
- NPOpMN 04/10
- CABG and Mitral Valve repair scheduled for tomorrow
# Unstable Angina-
- resolved
- Per Cardiology, input appreciated
- Continue ASA/UFH
- Continue care in IVU
#Moderate to severe vascular calcification
-Found on CT Scan (04/06)
-Counseled patient, monitoring
Abdominal Pain
-resolved
-Ct a/p 04/06- Cholelithiasis. No CT findings to suggest acute cholecystitis. no CT findings to suggest pancreatitis.
Moderate to severe atrophy of the right kidney, moderate PAD
- cont bowel regimen
- advance diet as tolerated
- NPOpMN on 04/10
Essential HTN:
-Continue metoprolol, losartan
-Stable, monitoring blood pressure
-Holding Losartan for surgery
DM2:
- [id number]
- controlled with insulin regimen
- metformin on hold
- appreciate DM INSTRUMENT MAN input
- cont SSI
- monitor AccuCheck closely
- farxiga on DC
- Diabetic diet
- Monitor Blood sugar levels for glycemic control
- cont new Lantus 12 units with 5 NovoLog q ac
Hyperlipidemia:
-Continue Rosuvastatin 20mg Daily
Anxiety/Depression:
-Cont Lexapro
-Lorazepam 0.5mg q8 given as needed
Anticipated Discharge: > 48 hours
Subjective/Interval History
-
Date of Service: April 10, 2024
Patient did not have any adverse events, just a bit anxious about the upcoming surgery
Objective Data
-
Labs:
Laboratory Results
04/10/24 04/10/24
03:57 11:20
APTT 112.3 H Pending
Vital Signs:
Vital Signs
Temp Pulse Resp BP Pulse Ox
97.8 F 69 18 108/64 100
04/10/24 03:50 04/10/24 06:35 04/10/24 03:50 04/10/24 06:36 04/10/24 03:50
I&O
04/08/24 04/09/24 04/10/24
06:59 06:59 06:59
Intake Total 480 / 480 2237
Balance 480 / 480 2237
Review of Systems
-
History Source: Patient
Constitutional: Denies No Appetite, Fatigue, Night Sweats or Chills
Respiratory: Denies Cough or Trouble Breathing
Cardiac: Denies Chest Pain, Palpitations or Syncope
Musculoskeletal: Denies Edema
Psych: Reports Anxious
Physical Exam
-
General: Well Developed, Well Nourished, No Apparent Distress and Comfortable
Respiratory: Clear to Auscultation and Non Labored Respirations
Cardiac: Regular Rhythm and S1/S2
Musculoskeletal: No Clubbing, No Cyanosis and No Edema
Skin: Warm and Dry
Neuro: Awake, Alert, Oriented, AO x 3 and No Motor Deficits
Data Reviewed
-
Labs: Labs Reviewed by me, Discussed with Physician and Discussed with Patient
--- NOTE | 2024-04-10 07:03 | W.PN.HOSP.TC ---
Today's Communication/Plan
-
Patient will continue taking current medications except for Losartan which was held. Patient is scheduled for surgery tomorrow - NPOpMN 04/10
Assessment / Plan
Assessment / Plan
Assessment:
Patient is a 68-year old woman with history of coronary artery disease. Patient came to the ED on 04/01 with left shoulder discomfort and pain radiating down her arm. Patient took nitroglycerin at home for prompt relief but presented to the hospital
after the episode recurred. Patient was scheduled for cardiac catheterization which was performed successfully on 04/03. Patient
# Multivessel CAD/NSTEMI
- s/p cardiac cath on 04/03- Showed Left dominant circulation with critical, 90% in-stent restenosis of the ostial/proximal circumflex stent, a chronic total occlusion of the LPDA, and moderate, occlusive tandem lesions in the LAD (30% ostial, 40%
mid and 50-60% mid/distal, IFR = 0.84).
- appreciate IC and CT surg input
- scheduled tentatively for CABG on 04/10 after Plavix washout
- h/o PCI of ostial/proximal and mid LCx 07/18/23.
- plavix held, continue hep gtt, monitor aptt closely
- cont metoprolol, rosuvastatin and asa
- complete pre-op studies
- echo 04/04-Left ventricular ejection fraction is 60-65%, by visual assessment. Normal regional wall motion. Normal right ventricular size and function.
Likely moderate to severe, eccentric mitral regurgitation.
Trace tricuspid regurgitation. Estimated pulmonary artery pressure of 25-30
mmHg. progressive mitral regurgitation is noted.
- completed carotid US, vascular mapping US and PFT's.
- will need to be monitored in acute care setting prior to cabg
- ECG with acute ST depression in V2-V6
- As per Cardiology
- Continue IV Heparin @ 1550 units/hr
- Continue care in IVU
- NPOpMN 04/10
- CABG and Mitral Valve repair scheduled for tomorrow
# Unstable Angina-
- resolved
- Per Cardiology, input appreciated
- Continue ASA/UFH
- Continue care in IVU
#Moderate to severe vascular calcification
-Found on CT Scan (04/06)
-Counseled patient, monitoring
Abdominal Pain
-resolved
-Ct a/p 04/06- Cholelithiasis. No CT findings to suggest acute cholecystitis. no CT findings to suggest pancreatitis.
Moderate to severe atrophy of the right kidney, moderate PAD
- cont bowel regimen
- advance diet as tolerated
- NPOpMN on 04/10
Essential HTN:
-Continue metoprolol, losartan
-Stable, monitoring blood pressure
-Holding Losartan for surgery
DM2:
- [id number]
- controlled with insulin regimen
- metformin on hold
- appreciate DM BULL CHAIN OPERATOR input
- cont SSI
- monitor AccuCheck closely
- farxiga on DC
- Diabetic diet
- Monitor Blood sugar levels for glycemic control
- cont new Lantus 12 units with 5 NovoLog q ac
Hyperlipidemia:
-Continue Rosuvastatin 20mg Daily
Anxiety/Depression:
-Cont Lexapro
-Lorazepam 0.5mg q8 given as needed
Anticipated Discharge: > 48 hours
Subjective/Interval History
-
Date of Service: April 10, 2024
Objective Data
-
Labs:
Laboratory Results
04/10/24 04/10/24
03:57 11:20
APTT 112.3 H Pending
Vital Signs:
Vital Signs
Temp Pulse Resp BP Pulse Ox
97.8 F 69 18 108/64 100
04/10/24 03:50 04/10/24 06:35 04/10/24 03:50 04/10/24 06:36 04/10/24 03:50
I&O
04/09/24 04/10/24 04/11/24
06:59 06:59 06:59
Intake Total 2237
Balance 2237
Review of Systems
-
History Source: Patient
Respiratory: Denies Cough, Trouble Breathing or Wheezing
Cardiac: Denies Chest Pain, Diaphoresis or Palpitations
Abdomen/GI: Denies Abdominal Pain, Nausea or Vomiting
Neuro: Denies Dizzy, Headache or Weakness
Physical Exam
-
General: Well Developed, Well Nourished and No Apparent Distress
Respiratory: Clear to Auscultation and Non Labored Respirations
Cardiac: Regular Rhythm and S1/S2
GI: Soft, Nontender and Nondistended
Musculoskeletal: No Clubbing, No Cyanosis and No Edema
Skin: Warm and Dry
--- NOTE | 2024-04-10 07:06 | W.PN.CD ---
Today's Communication / Plan
-
Awating CABG/MV repair (?annuloplasty) planned for tomorrow
Continue UFH
Impression / Plan
-
Impression/Plan: 68 y/o female with HTN, HLD, NIDDM and CAD s/p prior PCI to the ostial/proximal and mid LCx (07/2023) admitted with left sided shoulder pain/chest pain. Found to have multivessel coronary artery disease on cardiac catheterization
04/03/2024. Subsequent echocardiogram revealed moderate mitral regurgitation.
#Multivessel CAD/moderate MR:
-Previous NSTEMI with PCI of ostial/proximal and mid LCx (Xience Skypoint 4.0 x 28 REINALDO) on 07/18/23.
-Presented with [place]- peak trop 0.036.
-Had CP/ischemic ECG changes 04/04/2024.
-Multivessel CAD- CABG planned after plavix washout.
-Will undergo CABG/MVR repair on 05/01/2024.
-Continue ASA/heparin drip.
-Continue telemetry.
-Continue rosuvastatin 20 mg daily.
#Mitral regurgitation
-moderate by DIAMANTE on 04/07
-Will undergo CT surgery as above.
#HTN
-Remains controlled.
-Continue current medications.
#HLD
-Chronic, stable.
-Total cholesterol = 126, LDL = 47, HDL = 54, Triglycerides = 128.
-Continue rosuvastatin 20 mg daily.
#DM
-Hemoglobin A1c 7.0.
-Holding metformin for surgery.
Physical Exam
Vital Signs/Labs
Vital Signs
Temp Pulse Resp BP Pulse Ox
97.8 F 69 18 108/64 100
04/10/24 03:50 04/10/24 06:35 04/10/24 03:50 04/10/24 06:36 04/10/24 03:50
0804/10/24 04/11/24
06:59 06:59 06:59
Actual Weight 171 lb 4.787 oz 171 lb 15.369 oz
04/09/24 02:30
04/09/24 09:46
PT 13.4 Sec (11.4-14.6) 04/08/24 02:44
INR 1.04 04/08/24 02:44
APTT 112.3 Sec (23.4-35.0) H 04/10/24 03:57
Triglycerides 128 mg/dl (10-149) 04/01/24 04:16
LDL Cholesterol, Calc 47 mg/dl 04/01/24 04:16
VLDL Cholesterol, Calc 25 mg/dl (0-30) 04/01/24 04:16
HDL Cholesterol 54 mg/dl 04/01/24 04:16
Physical Exam
Constitutional: No acute distress and Comfortable
Cardiovascular: Rhythm & rate is regular, Systolic murmur present (2/6 MR murmur) and S1S2 is normal
Respiratory: Respiratory effort normal and Lungs clear to auscul.
GI: Non tender
Neuro/Psych: AO x 3 and Motor deficits absent
Data Reviewed
-
Date of Service: April 10, 2024
[2024-04-10 07:33] LABS: Glucose - Point of Care 147 mg/dl (70-99)
[2024-04-10] MEDS: NOVOLOG FLEXPEN 5 UNITS SC (08:07)
[2024-04-10] MEDS: NOVOLOG FLEXPEN-LOW RESISTANCE SC ×2 (08:08→17:14)
[2024-04-10] MEDS: ASPIR LOW (ENTERIC COATED) 81 MG PO (08:19)
[2024-04-10] MEDS: LEXAPRO 20 MG PO (08:19)
[2024-04-10] MEDS: TOPROL XL 50 MG PO (08:19)
[2024-04-10] MEDS: SENOKOT-S 1 TABLET PO ×2 (08:20→20:37)
[2024-04-10] MEDS: ATIVAN 0.5 MG PO ×3 (08:20→22:22)
--- NOTE | 2024-04-10 08:44 | PN.DE.MGMTRT ---
Insulin Management
- -
04/10/2024: Diabetes management F/U:
Patient admitted with left sided shoulder pain/chest heaviness and one low level (altamirano zone) troponin.
PMH: CAD s/p NSTEMI 07/18/23 s/p REINALDO, HTN, HLD, Solitary Functioning Kidney, Abigu-Arhzcycta-Seqfy Syndrome, Anxiety / Depression and NIDDM.
A1C 7.0%, Cr 0.9, eGFR >60. Was taking Metformin 1000 mg BID and Mounjaro 12.5mg Q .
Patient awake, A/O x3, sitting up in chair, offers no complaints, family at bedside. Able to discuss diabetes mgt. Patient currently using DexCom G6 CGM.
04/09 Premeal glucose range 154 to 201, requiring 1-3 units additional corrective insulin. Fasting glucose 147 this AM.
Will increase AC NovoLog to 7 units. Cont Lantus 12 units @HS with low corrective with meals.
Discussed with patient upcoming surgery and insulin infusion.
Discussed adding Farxiga to regimen post operatively, $25 co-pay, pt is agreeable.
Will follow and make further adjustments if necessary
Diabetes History
- -
Type of Diabetes: 2
Pre-Admission Diabetes Regimen
04/09/24 04/09/24
08:54 09:46
Creatinine Cancelled 0.9
Lab Results
Hemoglobin A1c 7.0 % (4.0-5.6) H 04/01/24 04:16
Insulin Pump Settings
IP Diabetes Regimen
04/09/24 04/09/24 04/09/24
08:54 09:46 13:11
Glucose Cancelled 217 H
POC Glucose 154 H
04/09/24 04/09/24 04/10/24
16:55 22:27 07:31
Glucose
POC Glucose 201 H 189 H 147 H
Meal type: Dinner
Amount consumed: 80%
Patient Education
--- NOTE | 2024-04-10 11:15 | PTCARENOTE ---
Assumed care of pt from prev nsg shift; Pt AAOX3 w/no c/o CP or SOB this AM. Pt w/VS stable w/HR in the 70's & BP this AM 106/58. Pt remains SR w/occas PVC's on telemetry monitoring. Pt w/IV Heparin infusing through patent IV line as ordered. Pt
mildy anxious re: upcoming surgery tomm emotional support provided & surgery prep discussed w/pt. This RN rec'd order for IS to start today. This RN instructed pt on use & pt demonstrated use appropriately. Plan of care ongoing.
[2024-04-10 12:09] LABS: Glucose - Point of Care 170 mg/dl (70-99)
--- NOTE | 2024-04-10 12:27 | CM ---
dc plan remains home when medically stable.
[2024-04-10 12:30] LABS: Hematocrit 30.8 % (37.0-47.0); Hemoglobin 10.6 g/dL (12.0-16.0); Mean Corp Hgb Conc. 34.4 g/dL (33.0-37.0); Mean Corpuscular Volume 90.1 fL (81.0-99.0); Mean Platelet Volume 9.6 fL (7.4-10.4); Platelet Count 278 10^3/uL (130-400); Red Blood Cell Count 3.42 10^6/uL (4.20-5.40); Red Cell Dist. Width 13.2 % (11.5-14.5); White Blood Cell Count 7.2 10^3/uL (4.8-10.8)
[2024-04-10 12:40] LABS: APTT 40.4 Sec (23.4-35.0)
[2024-04-10 12:54] LABS: Blood Urea Nitrogen 21 mg/dl (7-17); Calcium 9.9 mg/dl (8.4-10.2); Carbon Dioxide 27 mmol/L (22-30); Chloride 104 mmol/L (98-107); Estimated Creatinine Clearance 63 ml/min; Glucose 149 mg/dl (70-99); Potassium 4.5 mmol/L (3.5-5.1); Sodium 137 mmol/L (135-145); eGFR > 60.00
[2024-04-10 13:01] LABS: % Basophils 0.4 % (0-2); % Eosinophils 2.1 % (0-6); % Immature Granulocytes 0.3 % (0-0.5); % Lymphocytes 34.5 % (20.5-51.1); % Monocytes 7.8 % (1.7-9.3); % Neutrophils 54.9 % (42.2-75.2); Absolute Eosinophils 0.2 10^3/uL (0-0.7); Absolute Lymphocytes 2.5 10^3/uL (1.2-3.4); Absolute Monocytes 0.6 10^3/uL (0.1-0.6); Nucleated Red Blood Cells % 0 %
[2024-04-10] MEDS: NOVOLOG FLEXPEN-LOW RESISTANCE 1 UNITS SC (13:19)
[2024-04-10] MEDS: NOVOLOG FLEXPEN 7 UNITS SC ×2 (13:19→17:15)
--- NOTE | 2024-04-10 15:55 | W.PN.UPDATE ---
Update Note
Progress Note Update
I saw and evaluated the patient. I reviewed the resident�s note and agree with findings and plan as documented in the resident�s note.
Patient denies of having any issues overnight
# Multivessel CAD and MV regurgitation
- s/p cardiac cath 04/03- Left dominant circulation with critical, 90% in-stent restenosis of the ostial/proximal circumflex stent, a chronic total occlusion of the LPDA, and moderate, occlusive tandem lesions in the LAD (30% ostial, 40% mid and
50-60% mid/distal, IFR = 0.84).
- h/o PCI of ostial/proximal and mid LCx 07/18/23.
- Plavix on hold , continue hep gtt, monitor aptt closely
- cont metoprolol, rosuvastatin and asa
- DIAMANTE-04/07-Normal biventricular size and systolic function without regional wall motion abnormality. Estimated LVEF 60-65%. Moderate mitral regurgitation.
- for CABG with MVr on 04/11 Dr. Landry
# Unstable Angina- resolved
- episode on 04/05
- nitro gtt dc'd
- ekg with st depression in v2->v6 now resolved
- cont care in IVU
# Abdominal Pain
-Borderline elevated lipase with question of pancreatitis. No CT findings suggest acute cholecystitis or pancreatitis
-Continue monitoring
Essential hypertension
Hyperlipidemia
Type 2 diabetes mellitus -BG controlled with current regimen of lantus/novolog
Depression/Anxiety
Full code
[2024-04-10 17:13] LABS: Glucose - Point of Care 130 mg/dl (70-99)
[2024-04-10] MEDS: HEPARIN 25000 UNITS/250 ML IV (18:41)
--- NOTE | 2024-04-10 18:48 | PTCARENOTE ---
Pt's spouse came to this RN to report pt was having CP. This RN in to see pt & there were approx 8 visitors in the rm w/pt. Pt stated she 'wasn't having CP, but more like chest pressure'. Pt stated that it had resolved. Pt did appear visibly upset &
tearful. PT's VS HR 85, BP 131/64, SpO2 95% RA. Pt's guests asked to leave the room while this RN was assessing her. Another RN spoke w/the family & advised that we need to reduce the number of visitors to 2 at a time for now due to pt's increased
anxiety & stress over upcoming surgery tomm. New bag of Heparin IV hung as ordered. Emotional support provided. Pt's spouse at bedside. Pt w/no addtl needs at this time. Call leung within reach.
[2024-04-10 20:05] LABS: APTT 86.7 Sec (23.4-35.0)
[2024-04-10] MEDS: CRESTOR 20 MG PO (22:22)
[2024-04-10] MEDS: LANTUS 0.06 UNITS SC (22:27)
[2024-04-10 22:29] LABS: Glucose - Point of Care 276 mg/dl (70-99)
[2024-04-11] VITALS (15 sets, daily range): BP systolic 0–146; BP diastolic 49–84; BMI 28.6
--- NOTE | 2024-04-11 03:31 | PTCARENOTE ---
Rec'd pt at change of shift on ekg monitor tech in NSR with occasional PVC's. Heparin currently infusing (see titration flowchart). Pt denies as pain or discomfort. Pt showered and completed first round of HCG wipes for upcoming surgery tomorrow.
Pt NPO at midnight and verbalized understanding of procedure preparation and NPO status. Pt resting in bed with call leung in reach. Plan of care ongoing.
[2024-04-11] MEDS: MAGNESIUM OXIDE 500 MG PO (06:00)
[2024-04-11] MEDS: BACTROBAN 2% OINTMENT 1 APPLIC NASAL ×2 (06:00→19:40)
[2024-04-11] MEDS: PROTONIX 40 MG PO (06:00)
[2024-04-11] MEDS: LOPRESSOR 25 MG PO (06:10)
[2024-04-11 06:15] LABS: Glucose - Point of Care 199 mg/dl (70-99)
--- NOTE | 2024-04-11 06:22 | W.CVOR.SURPR ---
CVOR Surgeon Immed Pre Op
-
I have examined this patient prior to performance of the scheduled procedure.
The patient's condition is unchanged from the time of the dictated/written History and
Physical and the patient is able to undergo the scheduled procedure.
CABG + MV Repair vs Replacement +/- MAIK Clip
--- NOTE | 2024-04-11 06:30 | PTCARENOTE ---
Pt remained NPO after midnight with exception of sips of water with morning meds. Pt completed 2nd round of CVOR prep, including shower, CHG wipes, and moved to CVICU bed. Morning CVOR meds given. Pt transferred to CVOR and report given to CVOR
nurses. Pt sent over on IVU tele monitor.
--- NOTE | 2024-04-11 06:50 | W.PN.HOSP.TC ---
Addendum entered and electronically signed by Alonzo Pritchett MD 04/11/24 18:22:
Patient unable to be evaluated on morning round today as was in OR
Hospitalist service will sign off patient to CT surg
Please contact hospitalist service if help required.
Original Note:
Today's Communication/Plan
-
Patient underwent successful CABG and mitral valve repair. Recovering in CVICU after surgery, continue critical care glycemic protocol.
Assessment / Plan
Assessment / Plan
Assessment:
Patient is a 68-year old woman with history of coronary artery disease. Patient came to the ED on 04/01 with left shoulder discomfort and pain radiating down her arm. Patient took nitroglycerin at home for prompt relief but presented to the hospital
after the episode recurred. Patient was scheduled for cardiac catheterization which was performed successfully on 04/03.
Plan:
# Multivessel CAD/NSTEMI
- s/p cardiac cath on 04/03- Showed Left dominant circulation with critical, 90% in-stent restenosis of the ostial/proximal circumflex stent, a chronic total occlusion of the LPDA, and moderate, occlusive tandem lesions in the LAD (30% ostial, 40%
mid and 50-60% mid/distal, IFR = 0.84).
- appreciate IC and CT surg input
- scheduled tentatively for CABG on 04/10 after Plavix washout
- h/o PCI of ostial/proximal and mid LCx 07/18/23.
- plavix held, continue hep gtt, monitor aptt closely
- cont metoprolol, rosuvastatin and asa
- complete pre-op studies
- echo 04/04-Left ventricular ejection fraction is 60-65%, by visual assessment. Normal regional wall motion. Normal right ventricular size and function.
Likely moderate to severe, eccentric mitral regurgitation.
Trace tricuspid regurgitation. Estimated pulmonary artery pressure of 25-30
mmHg. progressive mitral regurgitation is noted.
- completed carotid US, vascular mapping US and PFT's.
- As per Cardiology
- CABG and Mitral Valve repair successful today
- Post OP care started in CVICU
- Cefazolin 1g 60ml/hr IV q8H started post OP
- Clopidogrel 75mg PO Daily once able to take medication
# Unstable Angina-
- resolved
- Per Cardiology, input appreciated
- Monitor telemetry
- Continue care in IVICU
#Moderate to severe vascular calcification
-Found on CT Scan (04/06)
-Counseled patient, monitoring
Abdominal Pain
-resolved
-Ct a/p 04/06- Cholelithiasis. No CT findings to suggest acute cholecystitis. no CT findings to suggest pancreatitis.
Moderate to severe atrophy of the right kidney, moderate PAD
-Continue monitoring post op
Essential HTN:
-Metoprolol continued once able
-started on Nicardipine 40mg IV
-Stable, monitoring blood pressure
-Holding Losartan after surgery
DM2:
- Oep1l-1.0
- controlled with insulin regimen
- metformin on hold
- appreciate DM DEAL ARCHITECT input
- cont SSI
- monitor AccuCheck closely
- farxiga on DC
- Diabetic diet
- Monitor Blood sugar levels for glycemic control
- as per Diabetes DEAL ARCHITECT input
- Critical care Glycemic protocol x 48 hrs for optimal glucose control post-op
Hyperlipidemia:
-Restart Rosuvastatin when able
Anxiety/Depression:
-Cont medication once able
Anticipated Discharge: > 48 hours
Subjective/Interval History
-
Date of Service: April 11, 2024
Patient out for surgery in the morning, nurse said her night went well. Patient had successful surgery and was stable on ventilator as seen later. No review of systems able to be performed as patient was not concious.
Objective Data
-
Labs:
Laboratory Results
04/10/24 04/11/24 04/11/24
19:43 02:45 06:00
WBC Cancelled
Hgb Cancelled
Hct Cancelled
Plt Count Cancelled
APTT 86.7 H Cancelled
Vital Signs:
Vital Signs
Temp Pulse Resp BP Pulse Ox
97.9 F 103 20 146/84 99
04/11/24 04:45 04/11/24 06:10 04/11/24 04:45 04/11/24 06:10 04/11/24 04:47
I&O
04/09/24 04/10/24 04/11/24
06:59 06:59 06:59
Intake Total 2237 960 / 960
Balance 2237 960 / 960
Review of Systems
-
Unable to obtain full review of systems at this time due to: Patient Intubation
Physical Exam
-
General: Well Developed, Well Nourished and No Apparent Distress
Musculoskeletal: No Clubbing, No Cyanosis and No Edema
Neuro: Other (Not concious)
Data Reviewed
-
Labs: Labs Reviewed by me and Discussed with Physician
[2024-04-11 07:20] LABS: ACT+ - POC 93 Seconds (82-134)
[2024-04-11 07:34] LABS: Urine Albumin Trace (Neg - Trace); Urine Bilirubin Negative (Negative); Urine Character Slightly Cloudy (Clear); Urine Color Yellow; Urine Glucose Negative (Negative); Urine Ketone Negative (Negative); Urine Leukocyte 1+ (Negative); Urine Nitrite Negative (Negative); Urine Occult Blood 1+ (Negative); Urine Specific Gravity 1.015 (<1.030); Urine Urobilinogen Negative (Neg - 1+)
[2024-04-11 08:07] LABS: Urine Bacteria Many (Negative); Urine Squamous Cell 16-20 /LPF (Few); Urine Urothelial Cell 0-2 /LPF (FEW); Urine White Cell 26-30 /HPF (0-5)
--- NOTE | 2024-04-11 08:14 | PN.DE.MGMTRT ---
Insulin Management
- -
04/11/2024: Diabetes management F/U:
Patient admitted with left sided shoulder pain/chest heaviness and one low level (altamirano zone) troponin.
PMH: CAD s/p NSTEMI 07/18/23 s/p REINALDO, HTN, HLD, Solitary Functioning Kidney, Lhmgo-Ydbkuvhym-Qwrbl Syndrome, Anxiety / Depression and NIDDM.
A1C 7.0%, Cr 0.9, eGFR >60. Was taking Metformin 1000 mg BID and Mounjaro 12.5mg Q . Patient currently using DexCom G6 CGM.
Patient NPO for OR today for CABG/MVR.
She is off the floor to the OR and not available for interview.
Plan to initiate Critical care Glycemic protocol x 48 hrs for optimal glucose control post-op
Will closely follow post-op and assess for readiness to transition off drip to oral regimen if Cr table
Discussed adding Farxiga to regimen post operatively, $25 co-pay, pt was agreeable.
Diabetes History
- -
Type of Diabetes: 2
Pre-Admission Diabetes Regimen
04/10/24
12:08
Creatinine 0.9
Lab Results
Hemoglobin A1c 7.0 % (4.0-5.6) H 04/01/24 04:16
Insulin Pump Settings
IP Diabetes Regimen
04/10/24 04/10/24 04/10/24
12:08 17:12 22:27
Glucose 149 H
POC Glucose 170 H 130 H 276 H
04/11/24
06:14
Glucose
POC Glucose 199 H
Meal type: Dinner
Meal type: Lunch
Amount consumed: 95%
Amount consumed: 100%
Patient Education
[2024-04-11 10:01] LABS: ACT+ - POC 455 Seconds (82-134)
[2024-04-11 10:16] LABS: ACT+ - POC 522 Seconds (82-134)
[2024-04-11 10:34] LABS: B.E. - POC -1.6 mmol/L; Glucose - POC 182 mg/dl (65-99); HCO3 - POC 23 mmol/L (21-29); Hematocrit - POC 28 % PCV (37-47); Hemodilution- POC No; Hemoglobin Calculated - POC 9.5; Ionized Calcium - POC 1.21 mmol/L (1.12-1.27); PCO2 - POC 39 mmHg (35-45); PO2 - POC 532 mmHg (80-100); POC Comment PRE; Potassium - POC 4.1 mmol/L (3.6-5.0); Sodium - POC 138 mmol/L (135-145); pH - POC 7.38 (7.35-7.45)
[2024-04-11 10:44] LABS: ACT+ - POC 533 Seconds (82-134)
[2024-04-11 11:01] LABS: B.E. - POC 5.2 mmol/L; Glucose - POC 160 mg/dl (65-99); HCO3 - POC 29 mmol/L (21-29); Hematocrit - POC 20 % PCV (37-47); Hemodilution- POC Yes; Hemoglobin Calculated - POC 6.7; Ionized Calcium - POC 1.01 mmol/L (1.12-1.27); O2 Saturation %Calculated-POC 99.5 5 (92-96); PCO2 - POC 38 mmHg (35-45); PO2 - POC 152 mmHg (80-100); POC Comment CPB; Potassium - POC 4.5 mmol/L (3.6-5.0); Sodium - POC 140 mmol/L (135-145); pH - POC 7.49 (7.35-7.45)
[2024-04-11 11:12] LABS: ACT+ - POC 517 Seconds (82-134)
[2024-04-11 11:34] LABS: B.E. - POC 0.5 mmol/L; Glucose - POC 147 mg/dl (65-99); HCO3 - POC 26 mmol/L (21-29); Hematocrit - POC 23 % PCV (37-47); Hemodilution- POC Yes; Hemoglobin Calculated - POC 7.7; Ionized Calcium - POC 1.11 mmol/L (1.12-1.27); O2 Saturation %Calculated-POC 99.8 5 (92-96); PCO2 - POC 43 mmHg (35-45); PO2 - POC 246 mmHg (80-100); POC Comment CPB; Potassium - POC 4.1 mmol/L (3.6-5.0); Sodium - POC 141 mmol/L (135-145); pH - POC 7.39 (7.35-7.45)
[2024-04-11 11:44] LABS: ACT+ - POC 516 Seconds (82-134)
[2024-04-11 12:02] LABS: B.E. - POC 0.5 mmol/L; Glucose - POC 150 mg/dl (65-99); HCO3 - POC 25 mmol/L (21-29); Hematocrit - POC 24 % PCV (37-47); Hemodilution- POC Yes; O2 Saturation %Calculated-POC 99.9 5 (92-96); PCO2 - POC 39 mmHg (35-45); PO2 - POC 293 mmHg (80-100); POC Comment CPB; Potassium - POC 4.4 mmol/L (3.6-5.0); Sodium - POC 140 mmol/L (135-145); pH - POC 7.42 (7.35-7.45)
[2024-04-11 12:10] LABS: ACT+ - POC 489 Seconds (82-134)
[2024-04-11 12:34] LABS: B.E. - POC 0.2 mmol/L; Glucose - POC 163 mg/dl (65-99); HCO3 - POC 24 mmol/L (21-29); Hematocrit - POC 25 % PCV (37-47); Hemodilution- POC Yes; Hemoglobin Calculated - POC 8.5; Ionized Calcium - POC 1.08 mmol/L (1.12-1.27); PCO2 - POC 35 mmHg (35-45); PO2 - POC 461 mmHg (80-100); POC Comment WARM; Potassium - POC 4.2 mmol/L (3.6-5.0); Sodium - POC 141 mmol/L (135-145); pH - POC 7.45 (7.35-7.45)
[2024-04-11 12:38] LABS: ACT+ - POC 107 Seconds (82-134)
[2024-04-11 12:59] LABS: B.E. - POC -1.4 mmol/L; Glucose - POC 159 mg/dl (65-99); HCO3 - POC 23 mmol/L (21-29); Hematocrit - POC 26 % PCV (37-47); Hemodilution- POC Yes; Hemoglobin Calculated - POC 8.7; Ionized Calcium - POC 1.38 mmol/L (1.12-1.27); O2 Saturation %Calculated-POC 99.8 5 (92-96); PCO2 - POC 36 mmHg (35-45); PO2 - POC 231 mmHg (80-100); POC Comment POST; Potassium - POC 3.5 mmol/L (3.6-5.0); Sodium - POC 142 mmol/L (135-145); pH - POC 7.41 (7.35-7.45)
--- NOTE | 2024-04-11 13:07 | CON.INTV ---
Consultation
Consultation Request
Date/Time Consultation Requested: 04/11/2024 - 1256
Date/Time Consultation Performed: 04/11/2024 - 1305
Requesting Provider: JEYSON Burdick
Performing Provider: Mc Gonzalez MD
Reason for Consultation: s/p CABG + MVR
Medical History
-
Chief Complaint: Chest pain + L-shoulder pain
History of Present Illness:
68-year-old female former tobacco smoker with a past medical history of CAD s/p REINALDO x 1 to LCx, DM type II, hypertension hyperlipidemia presents with left-sided shoulder pain that radiates to LUE + upper chest pain. 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
felt better. Initial vitals in ER showed she was afebrile to 99.2 �F, pulse rate 87, breathing at 20 breaths/min, BP 152/77 and saturating 99% on room air. Initial labs showed Hb 11.1, glucose 238, initial troponin negative at <0.012 however
repeat was elevated at 0.036, and initial CXR on 03/31/2024 showed no acute cardiopulmonary process. She was given aspirin, and admitted to telemetry for chest pain rule out with cardiology consulted. Regarding her history of ACS, she has been
compliant with aspirin + Plavix. IV heparin was started and she underwent left heart catheterization on 04/03 showing 90% in-stent restenosis of the ostial/proximal circumflex stent with [employer]OR OF [employer] of the [facility] and moderate, occlusive tandem lesions in the
LAD with normal filling pressures (LVEDP: 10 mmHg). Cardiothoracic surgery was consulted to evaluate for CABG. Spirometry was normal on 04/04/2024 with no evidence of restriction or obstructive lung disease. TTE on 04/04 showed preserved LVEF at 60
to 65% with normal RV size/function, with moderate�severe eccentric mitral regurgitation and trace TR. Plan was for CABG + mitral valve repair vs replacement after Plavix washout. Today she obtained CABG x3 + mitral valve repair, and was
transferred to CVICU postoperatively for further care. Critical care services consulted for additional management/recommendations.
Patient seen and evaluated today at bedside. She is lightly sedated but easily arousable to voice/tactile stimulation. Heart rate 83, BP via right radial A-line is 97/55, PAP 24/14, CVP 11, CO/CI: 3.8/2.1, and SpO2 100% on SIMV at 12/500/40%/5
with PIP 27 cmH2O, breathing at 12 breaths/min with VTe 499 mL. She is on Precedex at 0.3mcg/kg/hr and insulin at 6 units/hr. She has mediastinal chest tubes x 2 + right/left pleural chest tubes.
PMHx: DM type II, hypertension, hyperlipidemia, CAD s/p REINALDO x 1 to LCx, history of WPW, solitary functional kidney, anxiety
PSHx: Tonsillectomy, hysterectomy, lumpectomy, coronary stent
Past Medical History
Past Medical History: Other (Above as per HPI)
Past Surgical History: Other (Above as per HPI)
Social History
Tobacco: Former Smoker
Alcohol: Occasional (Few drinks a month)
Drug: None
Personal:
Living: Other (Spouse)
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
Family History
Family History: Diabetes (Father)
Allergies / Home Medications
Allergies
Allergy/AdvReac Type Severity Reaction Status Date / Time
sulfamethoxazole Allergy Vomiting Verified 03/31/24 22:46
[From Bactrim]
trimethoprim [From Bactrim] Allergy Vomiting Verified 03/31/24 22:46
Home Medications
�Medication �Instructions �Recorded �Confirmed �Last Taken �Type
lorazepam 0.5 mg tablet (Ativan) 0.5 mg PO DAILYPRN PRN panic 07/18/23 03/31/24 Unknown History
attacks,anxiety
magnesium 250 mg tablet 250 mg PO DAILY Electrolyte 07/18/23 04/01/24 03/31/24 09:00 History
Repletion
aspirin 81 mg tablet,delayed 81 mg PO DAILY Blood Clot 07/20/23 04/01/24 03/31/24 09:00 History
release Prevention/Tx
escitalopram oxalate 20 mg tablet 20 mg PO DAILY depression/anxiety 07/20/23 04/01/24 03/31/24 09:00 History
(Lexapro)
losartan 100 mg tablet 100 mg PO DAILY Blood Pressure 07/20/23 04/01/24 03/31/24 09:00 History
metformin 1,000 mg tablet 1,000 mg PO DAILY Diabetes 07/20/23 04/01/24 03/31/24 09:00 History
nitroglycerin 0.4 mg sublingual 0.4 mg sublingual [id number] PRN 07/20/23 04/01/24 03/31/24 19:30 Rx
tablet chest pain #25 tabs
acetaminophen 325 mg tablet 650 mg PO Q4HPRN PRN mild pain 01/24/24 03/31/24 01/23/24 History
(Tylenol)
calcium carbonate 500 mg PO DAILY Supplement 01/24/24 04/01/24 03/31/24 09:00 History
cholecalciferol (vitamin D3) 25 25 mcg PO DAILY Supplement 01/24/24 04/01/24 03/31/24 09:00 History
mcg (1,000 unit) tablet (Vitamin
D3)
clopidogrel 75 mg tablet (Plavix) 75 mg PO DAILY Blood Clot 01/24/24 04/01/24 03/31/24 09:00 History
Prevention/Tx
metoprolol succinate 50 mg 50 mg PO DAILY Blood Pressure 01/24/24 04/01/24 03/31/24 09:00 History
tablet,extended release 24 hr
(Toprol XL)
rosuvastatin 20 mg tablet 20 mg PO HS High Cholesterol 01/24/24 04/01/24 03/31/24 History
therapeutic multivitamin 1 tab PO DAILY Supplement 01/24/24 04/01/24 03/31/24 09:00 History
tirzepatide 10 mg/0.5 mL 12.5 mg SC TH Diabetes 01/24/24 04/01/24 03/30/24 History
subcutaneous pen injector
(Mounjaro)
Review of Systems
-
Unable to Obtain full review of systems at this time due to: Patient Intubation
Vitals / Labs / Diagnostic Testing
Vital Signs
Temp Pulse Resp BP Pulse Ox
97.9 F 103 20 146/84 99
04/11/24 04:45 04/11/24 06:10 04/11/24 04:45 04/11/24 06:10 04/11/24 04:47
Laboratory Results
04/10/24 04/11/24
19:43 02:45
APTT 86.7 H Cancelled
Diagnostic Testing:
Physical Exam
-
HEENT: Normocephalic, Anicteric and Other (ETT in place)
Cardiovascular: S1/S2 and Peripheral Edema (negative)
Respiratory: Wheeze (negative), Rales (negative), Rhonchi (negative), Non-Labored Respirations and Other (Mechanical breath sounds heard bilaterally)
GI: Soft, Non Distended, Non Tender and Normal Bowel Sounds
Neurology: Tremors (negative) and Other (Sedated and easily arousable to voice/tactile stimulation)
Skin: Warm and Dry
General: Respiratory Distress (negative), Comfortable, Fever (negative), Chills (negative) and Sweats (negative)
Assessment
-
Assessment: 68-year-old female former tobacco smoker with a past medical history of CAD s/p REINALDO x 1 to LCx, DM type II, hypertension hyperlipidemia presents with left-sided shoulder pain that radiates to LUE + upper chest pain. 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 Initial vitals in ER showed she was afebrile to 99.2 �F, pulse rate 87, breathing at 20 breaths/min, BP 152/77 and saturating 99% on room air. Initial labs showed Hb 11.1, glucose 238, initial troponin negative at <0.012
however repeat was elevated at 0.036, and initial CXR on 03/31/2024 showed no acute cardiopulmonary process. She was given aspirin, and admitted to telemetry for chest pain rule out with cardiology consulted. Regarding her history of ACS, she has
been compliant with aspirin + Plavix. IV heparin was started and she underwent left heart catheterization on 04/03 showing 90% in-stent restenosis of the ostial/proximal circumflex stent with [employer] of the [facility] and moderate, occlusive tandem lesions in
the LAD with normal filling pressures (LVEDP: 10 mmHg). Cardiothoracic surgery was consulted to evaluate for CABG. Spirometry was normal on 04/04/2024 with no evidence of restriction or obstructive lung disease. TTE on 04/04 showed preserved LVEF
at 60 to 65% with normal RV size/function, with moderate�severe eccentric mitral regurgitation and trace TR. Plan was for CABG + mitral valve replacement after Plavix washout. On 04/11/2024 she obtained CABG x 3 + mitral valve repair, and was
transferred to CVICU postoperatively for further care. Critical care services consulted for additional management/recommendations.
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
Impression:
#Multivessel CAD with in-stent restenosis of ostial/proximal LCx stent s/p CABG x 3 (POD#0)
#Moderate-severe mitral valve regurgitation s/p MV-repair (POD#0)
#Anemia
#DM type II (A1c: 7 from 04/01/2024)
#Abnormal urinalysis with +1 leukocyte esterase and 26�30 urine WBC (from UA on 04/11/2024 with UCx showing NGTD)
#Former tobacco use disorder
Plan:
Ventilator settings reviewed
FiO2 will be weaned to maintain SpO2 >90-94%
Minute ventilation will be adjusted
Arterial blood gases will be monitored
Spontaneous breathing trial will be attempted with hopeful extubation after anesthesia/sedation wears off
prn nebulized bronchodilators
Pulmonary artery catheter parameters will be followed
Pressors/antihypertensive/inotropes/diuretics will be provided as needed
Maintain MAP>65
Replete electrolytes with K>4, Mg>2
Monitor chest tube output
Monitor hemoglobin
Monitor platelet count and coags
Transfuse blood product if needed
CT surgery following chest tubes
Monitor blood sugar to maintain euglycemia with goal BG 140-180
Insulin drip per protocol
Aspiration precautions
VAP prevention protocol
DVT prophylaxis
Early nutrition
Early mobilization
Critical care statement: A total of 46 minutes of critical care time was provided for this patient today. This includes management of ventilator, spontaneous breathing trial, arterial blood gases, pressors, of unstable vital signs, evaluation of the
patient at bedside, reviewing the patient's pertinent medical records including radiographs, microbiology, laboratory evaluations, and discussion with primary team and critical care nursing.
[2024-04-11] MEDS: NSS 500 IV (13:50)
--- NOTE | 2024-04-11 14:02 | W.PN.UPDATE ---
Update Note
Progress Note Update
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
stenosis (+iFR) and 90% in-stent restenosis of circumflex. Last Plavix dose was 04/03. Normal EF on TTE.
IV fluids:
Cell Saver:� 250
U.O.:� 1100
UF:� 2500
Blood:� none
Wires:� A + V wires
Gtts: Levo-off on arrival. Precedex, Insulin
�
NEURO: sedated on, pupils +Xmm B/L
RESP: #8OT @22cm> 500/60%/14/5. Lungs clear B/L. 2 mediastinal (5cc on arrival) and R/L pleural (5cc on arrival) chest tubes to -20cm suction. Sanguineous drainage
CV: RRR +S1, S2, no S3, no�rub, no murmur. Dermabond to median sternotomy. RIJ w/[place] locked @ 47cm. PA 31/07; CVP 8; C.O 3.88/CI 2.1
ABD: round, soft, no BS
EXT: no edema, +2/4 DP pulses B/L, no femoral bruit, RLE SHELBY wrap intact; right radial A-line intact
: Jimenez with clear yellow urine
�
A/P: POD #0 s/p mitral valve repair #32mm physio ring, CABG x 3 TOVAR>LAD, RAMOS (off TOVAR) >OM, SVG>PDA
DIAMANTE: EF�60%, MV 4/1mmHg, tr-mod MR, mild-mod TR
- wean and extubate
- will need instruction regarding antibiotic prophylaxis for dental and invasive procedures
- will need pre-discharge TTE
# CAD
- will require ASA/Plavix, beta oscar and statin
# acute surgical blood loss anemia-expected
- Hb 9.7
- trend CBC
�
# T2DM (A1C 7)
- insulin infusion x 48h
- resume MFM 1000mg daily when insulin infusion off and taking solids
- resume Mounjaro (12.5mg SC q Thurs) next week
�
# Anxiety
- resume�Lexapro 20mg daily when takind solids
# Hx solitary kidney
- avoids NSAIDS
[2024-04-11] MEDS: DILAUDID 0.5 MG IV ×2 (14:10→21:28)
[2024-04-11 14:12] LABS: Glucose - Point of Care 174 mg/dl (70-99)
[2024-04-11 14:14] LABS: Hematocrit 27.4 % (37.0-47.0); Hemoglobin 9.7 g/dL (12.0-16.0); Platelet Count 156 10^3/uL (130-400)
[2024-04-11 14:18] LABS: HCO3 25.1 mmol/L (21-28); Ionized Calcium 1.29 mMOL/L (1.15-1.33); O2 Saturation % 99.6 % (94-98); PCO2 37 mmHg (32-35); PO2 182 mmHg (83-108); Potassium 3.6 mMOL/L (3.5-5.1); Sodium 139 mMOL/L (136-145); pH 7.44 (7.35-7.45)
[2024-04-11 14:20] LABS: Mixed Venous O2 Saturation 72.5 %
[2024-04-11 14:24] LABS: APTT 31.9 Sec (23.4-35.0); INR 1.51; PT 18.1 Sec (11.4-14.6)
--- NOTE | 2024-04-11 14:26 | PTCARENOTE ---
Pt received from CVOR at 1350; Sedated and intubated; NSR rhythm on monitor and VSS; Epicardial A/V wires present with pacer box turned off; DP and radial pulses present; Lungs diminished at bases; ETT size 8 and 21 cm at lip; Ventilator settings
SIMV 12/5/5 FiO2 60%; CTx4 to -20 cm wall suction draining bloody drainage - no air leak, tidaling, or crepitus noted; Hypoactive BS; Jimenez catheter in place draining clear yellow urine; All surgical sites CDI; Right A-line, RIJ [place] and [place]
floated to 45, all lines zeroed and level; PIVx1; Cardene, Insulin and Precedex infusing see flow sheet for details; See nursing documentation for further details.
CI 2.10
CO 3.88
SVR 1587
[2024-04-11] MEDS: KCL 50 IV (14:34)
[2024-04-11 14:44] LABS: Blood Urea Nitrogen 23 mg/dl (7-17); Estimated Creatinine Clearance 63 ml/min; Glucose 176 mg/dl (70-99); Magnesium 2.4 mg/dl (1.6-2.3)
[2024-04-11 15:07] LABS: Glucose - Point of Care 204 mg/dl (70-99)
[2024-04-11] MEDS: LR 250 IV ×4 (15:17→16:45)
[2024-04-11] MEDS: ANCEF 10 IV ×2 (15:19→15:20)
[2024-04-11] MEDS: LEXAPRO PO (15:21)
[2024-04-11] MEDS: NOVOLOG FLEXPEN SC ×4 (15:21→15:36)
[2024-04-11] MEDS: NEURONTIN PO ×4 (15:21→21:12)
[2024-04-11] MEDS: ASPIR LOW (ENTERIC COATED) PO (15:21)
[2024-04-11] MEDS: TYLENOL PO (15:21)
[2024-04-11] MEDS: NOVOLOG FLEXPEN-LOW RESISTANCE SC ×2 (15:23→15:24)
[2024-04-11] MEDS: SENOKOT-S PO ×2 (15:26→19:54)
[2024-04-11] MEDS: PACERONE PO (15:36)
--- NOTE | 2024-04-11 15:45 | PTCARENOTE ---
RT in room and pt placed on CPAP. ABG's due at 1615
[2024-04-11] MEDS: OFIRMEV 100 IV (15:53)
[2024-04-11 16:07] LABS: Glucose - Point of Care 151 mg/dl (70-99)
--- NOTE | 2024-04-11 16:20 | W.PN.CD ---
Today's Communication / Plan
-
CPAP trial ongoing- will be extubated soon
Looks great immediate postop
Impression / Plan
-
Impression/Plan: 68 y/o female with HTN, HLD, NIDDM and CAD s/p prior PCI to the ostial/proximal and mid LCx (07/2023) admitted with left sided shoulder pain/chest pain. Found to have multivessel coronary artery disease on cardiac catheterization
04/03/2024. Subsequent echocardiogram revealed moderate mitral regurgitation.
#Multivessel CAD/moderate MR:
-CABG/MV repair by Dr Landry today
-Awake and following commands
-HD stable on no pressors, PA
-No need for intraop blood products
-ECG NSR without injury
#Mitral regurgitation
-moderate by DIAMANTE on 04/07
-annuloplasty done with CABG
#HTN
-Monitor
#HLD
-Chronic, stable.
-Total cholesterol = 126, LDL = 47, HDL = 54, Triglycerides = 128.
-Continue rosuvastatin 20 mg daily.
#DM
-Hemoglobin A1c 7.0.
-Holding metformin post surgery.
Physical Exam
Vital Signs/Labs
Vital Signs
Temp Pulse Resp BP Pulse Ox
97.5 F 80 18 88/51 100
04/11/24 16:00 04/11/24 16:00 04/11/24 16:00 04/11/24 16:00 04/11/24 16:00
04/10/24 04/11/24 04/12/24
06:59 06:59 06:59
Actual Weight 171 lb 15.369 oz 171 lb 11.841 oz
04/11/24 13:51
04/11/24 13:51
PT 18.1 Sec (11.4-14.6) H 04/11/24 13:51
INR 1.51 04/11/24 13:51
APTT 31.9 Sec (23.4-35.0) 04/11/24 13:51
Magnesium 2.4 mg/dl (1.6-2.3) H 04/11/24 13:51
Triglycerides 128 mg/dl (10-149) 04/01/24 04:16
LDL Cholesterol, Calc 47 mg/dl 04/01/24 04:16
VLDL Cholesterol, Calc 25 mg/dl (0-30) 04/01/24 04:16
HDL Cholesterol 54 mg/dl 04/01/24 04:16
Physical Exam
Constitutional: No acute distress and Comfortable
Cardiovascular: Rhythm & rate is regular, S1S2 is normal and Murmur/rub/gallop absent
Respiratory: Respiratory effort normal
Neuro/Psych: Other (Intubated but awake and follows commands appropriately)
Data Reviewed
-
Date of Service: April 11, 2024
[2024-04-11 16:25] LABS: B.E. -2.8 mmol/L; Ionized Calcium 1.29 mMOL/L (1.15-1.33); PCO2 51 mmHg (32-35); PO2 177 mmHg (83-108); Potassium 4.3 mMOL/L (3.5-5.1); Sodium 140 mMOL/L (136-145); pH 7.28 (7.35-7.45)
--- NOTE | 2024-04-11 16:35 | PTCARENOTE ---
ABG's reviewed w/ DAVIDA Worthy; RT at bedside; Pt placed back on SIMV FiO2 40%.
[2024-04-11] MEDS: DILAUDID 0.25 MG IV ×2 (16:57→19:57)
--- NOTE | 2024-04-11 17:00 | PTCARENOTE ---
Pt anxious with ventilator/ET tubed; CV TRIM OPERATOR at bedside and Precedex restarted at 0.2mcg/kg/hr; family at bedside for visit.
--- NOTE | 2024-04-11 17:02 | W.PN.CT.SURG ---
CT Surgery Operative Note
-
CARDIAC SURGERY OPERATIVE REPORT
Preoperative Diagnosis: NSTEMI with mixed pathology mitral valve regurgitation
Postoperative Diagnosis: Same
Procedures Performed:
1. Standard Sternotomy with Aortic and Bicaval Cannulation
2. CABG x 3 (In Situ TOVAR-LAD, RAMOS y'd off TOVAR-OM, Ao-RSVG-LPL)
3. Mitral Valve Repair (32mm Ring Annuloplasty)
4. Endoscopic Jermyn of RLE Vein
5. Placement of temporary atrial and ventricular pacing wires
6. Trans esophageal Echocardiography
Date of Surgery: 04/11/24
Comorbidities:
1. NSTEMI, h/o CAD with PCI and stent
2. Mitral valve disease, mixed pathology (Type 1 and 3b)
3. HTN
4. HLD
5. Solitary Kidney
6. Qfesl-Hxjonzquq-Ffdio Syndrome
7. T2 DM
8. Anxiety
Attending Surgeon: Mathew Landry MD, MS
Assistants: Deandra Rahman PA-C (present and necessary to heel sprayer first, retraction, suction, exposure, suture management, endoscopic vein harvesting, and wound closure under my direction)
Anesthesiology: Tramaine Nelson MD and JAY Garcia
Scrub and Circulating RNs: Nancy Lovett RN, Doreen Woodard RN
Buyer Agent: Venus Craven CCP
Anesthesia: GETA
EBL: per perfusion records
Products: None
Specimen(s): None
Prosthesis: 32mm Koehler Physio II ring, SN [id number], 2 box plates 1 mustache plate, total of 4 x 18mm screws and 8 x 16mm screws
CPB Time: 98 minutes
Aortic Cross Clamp Time: 120 minutes
Indication(s) for Procedures: This is a 68-year-old female with a history of CAD and TX with stenting to the circumflex with instent restenosis who presented initially with an NSTEMI. As part of the her workup she was found to have significant
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 Echo revealed mixed pathology mitral valve disease with likely effect from her previous TX and papillary muscle scarring. She had some restriction and retraction of her PL particularly at the P1
segment. Given the severity of her mitral insufficiency, she was offered concomitant CABG + MV repair or replacement, with her age, repair would be best if possible.
Mitral Valve Description: Relatively normal appear leaflet, short AL, some retraction of the PL at P1, dilated toward the P2/3 annulus. Combination disease with functional/scar component. LA was normal size.
Findings: Her LVEF preoperative was normal at 60% without regional wall motion abnormalities. Following surgery, her EF remained the same at 60% without new regional wall motion abnormalities. Her Emre's test intraoperatively was poor and so was
not safe to use her L radial and her R radial already had invasive lines in place. I harvested her TOVAR and left it in situ. The RAMOS was taken as a central segment. Both were skeletonized. I performed a TOVAR-RAMOS Y composite graft in an end-to-side
fashion with 8-0 prolene which yielded excellent flow into both conduits. Her LPL branches were small but graftable, I was able to graft a vein graft to it and flow approximately 40cc/min with antegrade test dosing at a pressure of 90mmHg. There was
excellent visual flow in the OM and LAD vessels once the bulldog was released. All grafts were tested with flowprobe and had acceptable flow/pulsatility index. Her mitral valve was moderately dilated without significantly myxomatous leaflets. The P1
scallop was a little retracted. I repaired her valve with 13 non pledgeted annular sutures secured with CorKnots. I initially repaired a cleft at P1/2 but did not like the appearance of the dynamic saline test. This suture was removed. Testing of
the valve revealed adequate competence and coaptation. DIAMANTE assessment revealed wgigp-ls-lyeg residual MR at the P2/3 scallop, but a significant improvement from her 3+ preoperative grade. Mean gradient across the valve was 1mmHg. She did not require
inotropic support, was in sinus rhythm, and did not require blood products. There was a mild degree of TR preoperatively with a normal sized annulus - therefore, I did not intervene on this. Post bypass, she had mild-moderate TR as expected.
Description of Procedure: The patient was taken to the operating room. Their identity and procedure to be performed were verified and they were positioned supine on the operating table. Induction via general anesthesia with endotracheal intubation
was performed and central venous access and arterial monitoring were inserted. A preoperative transesophageal echocardiogram was performed to assess cardiac function and valvular function. The patient was then prepped and draped from chin to feet in
a sterile fashion. A preoperative time-out was performed with all members of the team present. A midline chest incision was performed along with median sternotomy. Simultaneous endoscopic access of the [] lower extremity for saphenous vein harvest
was obtained along with administration of an initial 5,000 units of IV heparin. A RulTract sternal retractor was positioned to exposure the left internal mammary bed. The mammary was harvested and found to have good flow. A bulldog clamp was applied
to the distal end of the mammary after dividing it. It was wrapped in a papaverine soaked RayTec and replaced back into the left hemithorax. The RulTract was replaced to the right hemithorax and the mid section of the right internal mammary artery
was harvested in a skeletonized fashion, the distal end was divided and had excellent flow. The proximal end was clipped with two large clips and the SAL was placed into a papaverine soaked raytec. The RulTract was replaced with a median sternotomy
retractor. The innominate vein was isolated. Full heparinization was given (a total of 14703 units). We created a pericardial well. At this point the TOVAR-RAMOS Y graft was constructed with an 8-0 prolene and secured with a micro Corknot, this was
done in an end-to-side fashion. There was excellent flow in both conduits. The aortic cannulation site was chosen where it was soft, pliable, and free of calcium. Cannulation was performed with an arterial cannula in the ascending aorta, angled
metal tip cannular in the superior vena cava and straight bendable cannula in the inferior vena cava. The arterial cannula line had an appropriate bounce and correlating pressures. Next, a root vent/antegrade cannula was inserted into the ascending
aorta. The ACT was confirmed to be over 400 and retrograde autologous priming was performed before commencing cardiopulmonary bypass. The pulmonary artery was away from the aorta to facilitate a clamp site. Sondergaard�s groove was
developed after creating the oblique sinus. The aortic cross-clamp was placed after decreasing the flow on the bypass and mean arterial pressure. A total of 1.2L initial dose of antegrade Del-Nido cardioplegia solution was given and planned for
re-dosing every 75 minutes as necessary. There was rapid electro-mechanical arrest of the heart at 300 cc of cardioplegia. The left ventricle was observed for distention on echocardiogram and manual palpation. Cold slush was placed into a lap on the
RV and we systemically cooled to 34 degrees centigrade.
I positioned the heart to expose the distal right coronary at the left posterior lateral branch that was a CTA. A comanche blade was used to expose the coronary and perform the arteriotomy. Coronary Chen scissors were used to enlarge the incision.
The saphenous vein was trimmed and beveled to an appropriate size. The distal anastomosis was performed using 7-0 prolene in an end-to-side fashion. Antegrade cardioplegia was administered into the graft. Appropriate hemostasis and flow were
confirmed. The graft was measured for length to the aorta and cut. A suitable site on the largest branch of the obtuse marginal was chosen. We dissected and prepared the distal target in a similar fashion. An end-to-side anastomosis was created
with a 8-0 prolene using the composite RAMOS graft and secured with a micro CorKnot. The bulldog was removed and hemostasis and flow was confirmed visually. A suitable target on the distal left anterior descending was identified after the tandem
lesions. We dissected and prepared the distal target in a similar fashion. The distal end of the mammary was prepped and beveled to size. We verified orientation and length of the SAL and found brisk flow. An end-to-side anastomosis was created
with a 8-0 prolene and secured with a micro CorKnot. We temporarily released the bulldog clamp on the mammary to inspect flow. Perfusion to the LAD territory and OM territory was visualized and hemostasis was confirmed. The bull clamp was replaced
on the mammary. The heart was filled and the root was distended with antegrade cardioplegia to make final assessment of graft length and orientation. We created 1 aortotomy using a #11 blade then a 4.0mm aortic punch. The proximal anastomoses were
created in an end-to-side fashion using 6-0 prolene.
Carbon dioxide was used to flood the field. The mitral valve was access via the left atrium, followed by valve analysis. The mitral valve was repaired as described above. The left ventricular vent was repositioned across the mitral valve into the
left ventricular and the left atrium was closed with a 3-0 prolene.
De-airing maneuvers were performed and temporary bipolar ventricular pacing wires were placed on the base of the right ventricle to temporary atrial pacing wires at the SVC right atrial junction. The patient was placed in a Trendelenburg position
and flows on bypass were lowered. The aortic cross clamp was removed and flows were slowly brought back up. The left atrial suture line was hemostatic. Transesophageal echocardiography revealed no evidence of systolic anterior motion and
ventricular function was normal. Once de-airing was satisfactory the root vents were removed. After verifying acceptable parameters, we initiated weaning from cardiopulmonary bypass. Once we were off cardiopulmonary bypass, the venous cannulas was
clamped and removed sequentially. Flow probe assessment of the graft was performed here. A test dose of protamine was administered and the patient was monitored for any adverse reaction before resuming protamine. Once half of the protamine dose
was delivered, pump suckers were turned off and the systolic blood pressure was lowered for aortic decannulation. The aortic cannula was removed and purse strings were tied down. All cannulation sites were oversewn with a 4-0 prolene. The left
atrial suture line was inspected and hemostasis was confirmed. Mediastinal hemostasis was obtained. Two #24 Bernardo drains were placed within the pericardium with 2 additional 19 Omani Bernardo drains into each hemithorax. The sternum was approximated
with 3 #7 single and 3 #8 double stainless steel wires. Due to her diabetic status and body habitus, 3 additional plates were placed to help rigidly fix the sternum. Fascia was approximated with #1 vicryl suture. The subcutaneous, dermis and
epidermis were closed in layers in a running fashion. The skin wound was cleansed and dressed.
All instrument, sponge, and needle counts were confirmed to be correct x 2 at the end of the operation. The patient was transferred to the cardiac intensive care unit in critical but stable condition.
I, Dr. Mathew Landry, was present, scrubbed for, and performed all critical elements of this procedure.
Mathew Landry MD, MS
Cardiothoracic Surgeon
[facility]
This dictation was created using the [employer] dictation system. Please excuse any grammatical, typographical, or 'sound alike' errors
[2024-04-11 17:21] LABS: Glucose - Point of Care 154 mg/dl (70-99)
[2024-04-11 17:33] LABS: B.E. -1.9 mmol/L; HCO3 23.7 mmol/L (21-28); Ionized Calcium 1.28 mMOL/L (1.15-1.33); PCO2 43 mmHg (32-35); PO2 183 mmHg (83-108); Potassium 4.5 mMOL/L (3.5-5.1); Sodium 139 mMOL/L (136-145); pH 7.35 (7.35-7.45)
[2024-04-11 17:36] LABS: Hematocrit 27.6 % (37.0-47.0); Hemoglobin 9.8 g/dL (12.0-16.0); Platelet Count 221 10^3/uL (130-400)
--- NOTE | 2024-04-11 17:47 | PTCARENOTE ---
ABGs reviewed with CVNP; Respiratory at bedside and pt placed on CPAP.
[2024-04-11 18:15] LABS: Glucose - Point of Care 151 mg/dl (70-99)
[2024-04-11 18:20] LABS: B.E. -1.6 mmol/L; HCO3 24.3 mmol/L (21-28); PCO2 45 mmHg (32-35); PO2 195 mmHg (83-108); pH 7.34 (7.35-7.45)
--- NOTE | 2024-04-11 18:38 | PTCARENOTE ---
ABG's reviewed with CV PA; Respiratory at bedside and pt extubated at 1830; Pt placed on 6L O2 NC.
[2024-04-11] MEDS: LOW STRENGTH ASPIRIN 81 MG PO (19:35)
[2024-04-11] MEDS: CORDARONE 103 MG IV (19:39)
[2024-04-11] MEDS: ANCEF 5 IV (19:51)
[2024-04-11 20:00] LABS: Glucose - Point of Care 145 mg/dl (70-99)
[2024-04-11 20:10] LABS: Blood Urea Nitrogen 25 mg/dl (7-17); Calcium 8.8 mg/dl (8.4-10.2); Carbon Dioxide 25 mmol/L (22-30); Chloride 112 mmol/L (98-107); Estimated Creatinine Clearance 57 ml/min; Glucose 146 mg/dl (70-99); Magnesium 2.1 mg/dl (1.6-2.3); Potassium 4.2 mmol/L (3.5-5.1); Sodium 139 mmol/L (135-145); eGFR > 60.00
[2024-04-11] MEDS: MAGNESIUM SULFATE 50 IV (20:31)
--- NOTE | 2024-04-11 20:34 | PTCARENOTE ---
NSR with frequent PAC's on monitor; IV Amiodarone bolus ordered and given; labs drawn - mag 2.1. IV Mag 2 gm ordered and given
[2024-04-11] MEDS: CRESTOR PO (21:01)
[2024-04-11] MEDS: FLEXERIL 5 MG PO (21:12)
[2024-04-11] MEDS: NEURONTIN 100 MG PO (21:13)
[2024-04-11] MEDS: PACERONE 200 MG PO (21:13)
[2024-04-11] MEDS: TYLENOL 1000 MG PO (21:13)
[2024-04-11 22:05] LABS: Glucose - Point of Care 131 mg/dl (70-99)
[2024-04-11] MEDS: ALBUMIN 5% 250 IV (22:26)
[2024-04-11 23:00] LABS: Glucose - Point of Care 108 mg/dl (70-99)
[2024-04-11] MEDS: ROXICODONE 5 MG PO (23:21)
--- NOTE | 2024-04-11 23:32 | PTCARENOTE ---
assumed care of patient @ 1900. Received pt laying in bed, AOX3. Drowsy postop, responds to verbal commands, TIM. C/o moderate sternal pain, medicated with 5 of loly. Afebrile. NSR with PAcs on tele. BP 120s/50s MAP 70s. PAP 20s/10s, CVP ~8. AV
wires connected to temp box, box is turned off. +pulses throughout, no edema noted. Lungs clear, diminished on 4L, taking shallow breaths, IS ~1000. 4 chest tubes to wall suction no air leak, tidaling or crepitus noted. BS hypoactive. baires present
draining clear yellow urine. All surgical incisions CDI. R radial A line, R IJ cordis with swan at 45, L AC PIV all central lines zeroed, flushed. Recieved with levo at 4, insulin per protocol. call leung within reach .
[2024-04-12] VITALS (26 sets, daily range): BP systolic 93–128; BP diastolic 47–86; PULSE 72; O2SAT 96–99; BMI 29.2
[2024-04-12 00:10] LABS: Glucose - Point of Care 113 mg/dl (70-99)
--- NOTE | 2024-04-12 00:50 | W.PN.CT ---
Today's Communication / Plan
-
- POD #1
- Doing well. No major events overnight
- Extubated at 1830 hrs yesterday to [facility]
- Tele review: NSR, very frequent PACs, no ectopy. s/p IV amio bolus and IV mag last night
- Gtt's: insulin 3.5, levo OFF
- RA: 10 PA: CI: 2.15 CO: 3.83 SVR: 1420 / de-lined this AM
- complaints: pain, required IV dilaudid. multimodal regimen. Avoid NSAIDS (solitary kidney)
- CT 2M 80/115, R/L pleural 75/145 in 12/24 hrs
- UOP 410/1355 in 12/24 hrs
- PW: A+V, no pacing needed
- wean down/off O2, IS use reinforced
- Continue current meds: ASA, Plavix, Amio, Mag Ox, Protonix, metoprolol, rosuvastatin
- continue outpatient meds: escitalopram
- Bowel regimen
- OOB/IS/ambulate as tolerated
- TTE prior to discharge
Assessment / Plan
-
68 y/o female with HTN, HLD, NIDDM and CAD s/p prior PCI to the ostial/proximal and mid LCx (07/2023) admitted with left sided shoulder pain/chest pain. Found to have multivessel coronary artery disease on cardiac catheterization 04/03/2024.
Subsequent echocardiogram revealed moderate mitral regurgitation
MVCAD/MR s/p Mitral Valve Repair (32mm Ring Annuloplasty) CABG x 3 (In Situ TOVAR-LAD, RAMOS y'd off TOVAR-OM, Ao-RSVG-LPL) POD #[address] Landry
DIAMANTE: EF�60%, MV 4/1mmHg, tr-mod MR, mild-mod TR
Assessment:
-Severe multivessel CAD
-[place]
-Plavix washout, last dose 04/01/24 @ 0928
-Hx CAD/NSTEMI S/P PCI with REINALDO to ostial/prox and mid LCX, 07/18/23
-HTN
-T2DM (hgb A1C 7.0)
-HLD
-Hx R axillary MSSA abscess S/p I&D 01/27
-Congenital solitary kidney
-Anxiety/depression
-Back pain d/t herniated disc S/P diskectomy/facetectomy/foraminotomy of L5-S1, 11/05/14
-S/p Hand surgery
-S/P Hysterectomy, 2004
-S/P Tubal ligation
-S/P Lumpectomy
Acute post op pain
Acute post op anemia
Acute post op respiratory insufficiency
Subjective
Procedure
S/p mitral valve repair #32mm physio ring, CABG x 3 TOVAR>LAD, RAMOS (off TOVAR) >OM, SVG>PDA with Dr. Landry 04/11/2024
-
Date of Service: April 12, 2024
Objective Data
-
PT 18.1 Sec (11.4-14.6) H 04/11/24 13:51
INR 1.51 04/11/24 13:51
APTT 31.9 Sec (23.4-35.0) 04/11/24 13:51
Vital Signs
Vital Signs
Temp Pulse Resp BP Pulse Ox
96.9 F L 71 13 117/49 100
04/12/24 00:00 04/12/24 00:10 04/12/24 00:10 04/12/24 00:00 04/12/24 00:10
CT Intake/Output/Weight
04/11/24 04/11/24 04/12/24
06:59 18:59 06:59
Intake Total 480 / 960 1426.3 / 2233.6 807.3 / 2233.6
Output Total 1050 / 1440 390 / 1440
Balance 480 / 960 376.3 / 793.6 417.3 / 793.6
SaO2: 100
Physical Exam
-
General: Awake, Oriented and AOx3
Cardiovascular: Rub, No Gallop and Other (regularly irregular S1 S2)
Respiratory: Clear, Equal and Decreased Breath Sounds
Sternum: Stable
Incision: Clean, Dry and Intact
Extremities: No Edema
Data Reviewed
-
Lab Results: Results Reviewed
Medications: Active Meds Reviewed
Chest X-Ray: Report Reviewed
ECG: Report Reviewed
[2024-04-12 02:02] LABS: Glucose - Point of Care 93 mg/dl (70-99)
[2024-04-12] MEDS: ROXICODONE 5 MG PO ×4 (03:21→21:36)
[2024-04-12] MEDS: ZOFRAN 4 MG IV ×2 (03:26→17:18)
[2024-04-12 03:30] LABS: Hematocrit 25.3 % (37.0-47.0); Hemoglobin 8.8 g/dL (12.0-16.0); Mean Corp Hgb Conc. 34.8 g/dL (33.0-37.0); Mean Corpuscular Hgb 31.8 pg (27.0-31.0); Mean Corpuscular Volume 91.3 fL (81.0-99.0); Mean Platelet Volume 9.9 fL (7.4-10.4); Platelet Count 175 10^3/uL (130-400); Red Blood Cell Count 2.77 10^6/uL (4.20-5.40); Red Cell Dist. Width 13.3 % (11.5-14.5); White Blood Cell Count 15.6 10^3/uL (4.8-10.8)
[2024-04-12 03:53] LABS: Blood Urea Nitrogen 26 mg/dl (7-17); Calcium 8.3 mg/dl (8.4-10.2); Carbon Dioxide 21 mmol/L (22-30); Chloride 114 mmol/L (98-107); Estimated Creatinine Clearance 63 ml/min; Glucose 90 mg/dl (70-99); Magnesium 2.5 mg/dl (1.6-2.3); Potassium 3.9 mmol/L (3.5-5.1); Sodium 141 mmol/L (135-145); eGFR > 60.00
--- NOTE | 2024-04-12 03:59 | PTCARENOTE ---
labs drawn and sent, EKG completed NSR, medicated with 5 of loly for moderate pain. levo off. no other change in assessment .
[2024-04-12 04:04] LABS: Glucose - Point of Care 113 mg/dl (70-99)
[2024-04-12] MEDS: ANCEF 5 IV ×2 (05:21→11:36)
[2024-04-12] MEDS: TYLENOL 1000 MG PO ×3 (05:25→21:36)
[2024-04-12] MEDS: KCL 50 IV (05:25)
[2024-04-12 06:02] LABS: Glucose - Point of Care 103 mg/dl (70-99)
[2024-04-12 07:59] LABS: Glucose - Point of Care 122 mg/dl (70-99)
--- NOTE | 2024-04-12 08:00 | PTCARENOTE ---
pt received from previous RN, oriented, OOB in chair. SR w/ PACs, HR 70s. A&V wires in place, pacer box off. SBP 90-100s. palpable pulses, trace generalized edema. pt on 2LNC, 99% POX. lung diminished. IS encouraged. CTx4, no air leak or crepitus
noted. pt abdomen s/n, denies n/v. hypoactive BS. Jimenez in place. tolerating clears. sternal incision ANA MARÍA, approximated. chest tube dressing old drainage. R groin puncture intact. RLE SHELBY in place. RIJ cordis maintained. PIV. insulin gtt running as
ordered. see worklist for VS, I&O, and assessment.
[2024-04-12] MEDS: PACERONE 200 MG PO ×3 (08:19→21:37)
[2024-04-12] MEDS: LIDOCAINE 4% PATCH 1 PATCH TOPICAL (08:19)
[2024-04-12] MEDS: ASPIR LOW (ENTERIC COATED) 81 MG PO (08:19)
[2024-04-12] MEDS: SENOKOT-S 1 TABLET PO ×2 (08:20→19:40)
[2024-04-12] MEDS: NEURONTIN 100 MG PO ×3 (08:20→21:36)
[2024-04-12] MEDS: LOPRESSOR 12.5 MG PO ×2 (08:20→19:40)
[2024-04-12] MEDS: PROTONIX 40 MG PO (08:20)
[2024-04-12] MEDS: LEXAPRO 20 MG PO (08:20)
[2024-04-12] MEDS: MAGNESIUM OXIDE PO (08:20)
[2024-04-12] MEDS: PLAVIX 75 MG PO (08:20)
[2024-04-12] MEDS: NOVOLOG FLEXPEN 4 UNITS SC ×3 (08:21→17:17)
[2024-04-12] MEDS: BACTROBAN 2% OINTMENT 1 APPLIC NASAL ×2 (08:21→19:41)
--- NOTE | 2024-04-12 08:41 | PN.DE.MGMTRT ---
Insulin Management
- -
04/12/2024: Diabetes management F/U:
Patient admitted with left sided shoulder pain/chest heaviness and one low level (altamirano zone) troponin.
PMH: CAD s/p NSTEMI 07/18/23 s/p REINALDO, HTN, HLD, Solitary Functioning Kidney, Nrkak-Yaevrccbv-Fdbfz Syndrome, Anxiety / Depression and NIDDM.
A1C 7.0%, Cr 0.9, eGFR >60. Was taking Metformin 1000 mg BID and Mounjaro 12.5mg Q . Patient currently using DexCom G6 CGM.
Patient noted for MVCAD/MR on cath. Now POD # 1 s/p CABG x 3 and Mitral Valve Repair, doing well, offers no complaints
Remains on Critical Crae Glycemic protocol, glucose range 93 to 122, requiring 0.7 to 3.5 units of insulin/hr
Will cont Critical care Glycemic protocol x 48 hrs post-op, for optimal glucose control
Will follow tomorrow and assess for readiness to transition off drip to oral regimen if Cr stable
Discussed adding Farxiga to regimen post operatively, $25 co-pay, pt was agreeable.
Diabetes History
- -
Type of Diabetes: 2
Pre-Admission Diabetes Regimen
04/11/24 04/11/24 04/12/24
13:51 19:46 03:05
Creatinine 0.9 1.0 0.9
Lab Results
Hemoglobin A1c 7.0 % (4.0-5.6) H 04/01/24 04:16
Insulin Pump Settings
IP Diabetes Regimen
04/11/24 04/11/24 04/11/24
13:51 14:04 15:05
Glucose 176 H
POC Glucose 174 H 204 H
04/11/24 04/11/24 04/11/24
16:05 17:16 18:13
Glucose
POC Glucose 151 H 154 H 151 H
04/11/24 04/11/24 04/11/24
19:46 19:57 22:04
Glucose 146 H
POC Glucose 145 H 131 H
04/11/24 04/12/24 04/12/24
22:57 00:06 02:01
Glucose
POC Glucose 108 H 113 H 93
04/12/24 04/12/24 04/12/24
03:05 04:03 06:01
Glucose 90
POC Glucose 113 H 103 H
04/12/24
07:58
Glucose
POC Glucose 122 H
Meal type: Lunch
Patient Education
--- NOTE | 2024-04-12 08:44 | W.PN.CD ---
Today's Communication / Plan
-
- Weaning off pressors and starting BB
- IS and OOB
- Keep Chest tube for now
- Pain control
Impression / Plan
-
Impression/Plan: 68 y/o female with HTN, HLD, NIDDM and CAD s/p prior PCI to the ostial/proximal and mid LCx (07/2023) admitted with left sided shoulder pain/chest pain. Found to have multivessel coronary artery disease on cardiac catheterization
04/03/2024. Subsequent echocardiogram revealed moderate mitral regurgitation.
#Multivessel CAD/moderate MR:
-s/p MVCAD/MR s/p Mitral Valve Repair (32mm Ring Annuloplasty) CABG x 3 (In Situ TOVAR-LAD, RAMOS y'd off TOVAR-OM, Ao-RSVG-LPL) POD #[address] Landry
-OOB to chair.
-Off all pressor support
-Chest tubes and baires in place.
-ECG NSR
-BP is borderline low this AM - On Amiodarone and adding Toprol 12.5 mg BID. .
#Mitral regurgitation
-s/p MVr 32mm Ring.
-moderate by DIAMANTE on 04/07
-annuloplasty done with CABG
#HTN
-Monitor
-low post op now
#HLD
-Chronic, stable.
-Total cholesterol = 126, LDL = 47, HDL = 54, Triglycerides = 128.
-Continue rosuvastatin 20 mg daily.
#DM
-Hemoglobin A1c 7.0.
-Holding metformin post surgery.
Physical Exam
Vital Signs/Labs
Vital Signs
Temp Pulse Resp BP Pulse Ox
97.9 F 73 16 104/57 99
04/12/24 04:00 04/12/24 08:20 04/12/24 07:55 04/12/24 08:20 04/12/24 08:00
04/11/24 04/12/24 04/13/24
06:59 06:59 06:59
Actual Weight 77.9 kg 79.6 kg
04/12/24 03:05
04/12/24 03:05
PT 18.1 Sec (11.4-14.6) H 04/11/24 13:51
INR 1.51 04/11/24 13:51
APTT 31.9 Sec (23.4-35.0) 04/11/24 13:51
Magnesium 2.5 mg/dl (1.6-2.3) H 04/12/24 03:05
Triglycerides 128 mg/dl (10-149) 04/01/24 04:16
LDL Cholesterol, Calc 47 mg/dl 04/01/24 04:16
VLDL Cholesterol, Calc 25 mg/dl (0-30) 04/01/24 04:16
HDL Cholesterol 54 mg/dl 04/01/24 04:16
Physical Exam
Constitutional: No acute distress and Comfortable
EENT: Anicteric and Moist mucous membranes
Cardiovascular: Rhythm & rate is regular, Pedal edema is absent and JVD pressure is normal
Respiratory: Respiratory effort normal, Lungs clear to auscul., Wheeze Absent and Other (poor insp effort)
GI: Soft, Distention absent, Non tender and Normal bowel sounds
Neuro/Psych: Alert, Oriented and Motor deficits absent
Other: Skin
Data Reviewed
-
Date of Service: April 12, 2024
Medical Decision Making: Reviewed Test Results, Independent Historian Assessment and Test Interpretation
EKG: Tracing Personally Visualized and interpreted
Echo: Report Reviewed by me
X-Ray/CT/US/MRI/NUC/PET: Image Personally Visualized and interpreted
Labs: Labs Reviewed by me
Old Records: Reviewed
Critical Care Time (in minutes): 35
--- NOTE | 2024-04-12 09:46 | PTCARENOTE ---
pt placed back to bed, baires care performed, baires dc'd. A&V wires insulated as ordered. R&L CTs dc'd as ordered, Med CTs remain to suction as ordered, dressing c/d/i.
--- NOTE | 2024-04-12 10:01 | W.PN.INTV ---
Today's Communication / Plan
Recommendations
Up will be as tolerated
Encourage incentive spirometer use
Pain control
Removal of Cordis as per CT surgery
Cardiac rehab
Insulin drip with wean as per protocol
Assessment
-
Assessment: 68-year-old female former tobacco smoker with a past medical history of CAD s/p REINALDO x 1 to LCx, DM type II, hypertension hyperlipidemia presents with left-sided shoulder pain that radiates to LUE + upper chest pain. 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 Initial vitals in ER showed she was afebrile to 99.2 �F, pulse rate 87, breathing at 20 breaths/min, BP 152/77 and saturating 99% on room air. Initial labs showed Hb 11.1, glucose 238, initial troponin negative at <0.012
however repeat was elevated at 0.036, and initial CXR on 03/31/2024 showed no acute cardiopulmonary process. She was given aspirin, and admitted to telemetry for chest pain rule out with cardiology consulted. Regarding her history of ACS, she has
been compliant with aspirin + Plavix. IV heparin was started and she underwent left heart catheterization on 04/03 showing 90% in-stent restenosis of the ostial/proximal circumflex stent with SHORT HAUL DRIVER of the LPDA and moderate, occlusive tandem lesions in
the LAD with normal filling pressures (LVEDP: 10 mmHg). Cardiothoracic surgery was consulted to evaluate for CABG. Spirometry was normal on 04/04/2024 with no evidence of restriction or obstructive lung disease. TTE on 04/04 showed preserved LVEF
at 60 to 65% with normal RV size/function, with moderate�severe eccentric mitral regurgitation and trace TR. Plan was for CABG + mitral valve replacement after Plavix washout. On 04/11/2024 she obtained CABG x 3 + mitral valve repair, and was
transferred to CVICU postoperatively for further care. Critical care services consulted for additional management/recommendations.
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
Impression:
#Multivessel CAD with in-stent restenosis of ostial/proximal LCx stent s/p CABG x 3 (POD#1)
#Moderate-severe mitral valve regurgitation s/p MV-repair (POD#1)
#Anemia
#DM type II (A1c: 7 from 04/01/2024)
#Abnormal urinalysis with +1 leukocyte esterase and 26�30 urine WBC (from UA on 04/11/2024 with UCx showing NGTD)
#Former tobacco use disorder
Plan:
Patient successfully extubated on 04/11/2024
Maintain SpO2 >90-94%
prn nebulized bronchodilators
Maintain MAP>65
Replete electrolytes with K>4, Mg>2
Monitor chest tube output (mediastinal chest tubes x2)
Monitor hemoglobin
Monitor platelet count and coags
Transfuse blood product if needed to keep Hb>7g/dL, plt>50k (given post-operative status)
CT surgery managing chest tubes
Monitor blood sugar to maintain euglycemia with goal BG 140-180
Insulin drip per protocol
Aspiration precautions
DVT prophylaxis
Early nutrition
Early mobilization
Patient remains CVICU-status on insulin drip. Once transferred to CVICU-telemetry then we will sign off at that time. Thank you for allowing us to be involved in the care of this patient.
Critical care statement: A total of 38 minutes of critical care time was provided for this patient today. This includes management of ventilator, spontaneous breathing trial, arterial blood gases, pressors, of unstable vital signs, evaluation of the
patient at bedside, reviewing the patient's pertinent medical records including radiographs, microbiology, laboratory evaluations, and discussion with primary team and critical care nursing.
Data:
CXR 04/12/2024: No acute disease of the chest
Subjective Dataa
Subjective Data
Date of Service:
Date of Service: April 12, 2024
Chief Complaint: Library Monitor Follow Up and Pulmonary Follow Up
Subjective:
Patient seen and evaluated today at bedside. Patient's mother at bedside. All questions were answered. She is having difficult comfort in her chest and right side of the neck where cordis is in place. Denies shortness of breath, TEE, abdominal
pain, fevers chills. Afebrile overnight. Remains on insulin drip at 4.5 units/hr. BP 105/52, heart rate 73 and saturating 91% on room air. Mediastinal chest tubes x 2 on suction.
Review of Systems
General: Other (Negative unless mentioned above)
Objective Data
Data Reviewed
Vital Signs / I&O / Oxygen:
Vital Signs
Temp Pulse Resp BP Pulse Ox
97.9 F 72 19 102/53 99
04/12/24 04:00 04/12/24 09:30 04/12/24 09:30 04/12/24 09:00 04/12/24 08:00
Intake and Output
04/11/24 04/12/24 04/13/24
06:59 06:59 06:59
Intake Total 960 / 960 2350.6 / 2362.4 37.1 / 37.1
Output Total 1690 / 1690 105 / 105
Balance 960 / 960 660.6 / 672.4 -67.9 / -67.9
SaO2 [CPAP] 99
SaO2 [SIMV] 100
SaO2 99
Nasal Cannula flow liters per 1
minute
Physical Exam
General: Respiratory Distress (Negative ), Comfortable, Pain (Right anterior neck and chest), Chills (Negative ) and Sweats (Negative )
HEENT: Normocephalic, Anicteric and Other (Cordis catheter in place covered with Tegaderm on right anterior neck, no erythema or purulence seen)
Cardiovascular: S1-S2 and Peripheral Edema (Negative )
Respiratory: Wheeze (Negative ), Crackles (Bibasilar), Rhonchi (Negative ), Non-Labored Respirations and Chest Tube (Mediastinal chest tubes x 2)
GI: Soft, Non Distended, Non Tender and Normal Bowel Sounds
Neurology: Awake, Alert and Tremors (Negative )
Skin: Warm, Dry and Jaundice (Negative )
Labs/Micro/Reports
Lab Data
04/12/24 03:05
04/12/24 03:05
Laboratory Results
04/11/24 04/11/24 04/11/24
13:51 16:15 17:18
PT 18.1 H
INR 1.51
APTT 31.9
pH 7.44 7.28 L 7.35
pCO2 37 H 51 H 43 H
pO2 182 H 177 H 183 H
HCO3 25.1 24.0 23.7
O2 Delivery Level
04/11/24
18:13
PT
INR
APTT
pH 7.34 L
pCO2 45 H
pO2 195 H
HCO3 24.3
O2 Delivery Level
Microbiology
04/10/24 09:09 Nose MRSA Screen - Final
No Methicillin Resistant Staphylococcus aureus isolated.
[2024-04-12 10:34] LABS: Glucose - Point of Care 127 mg/dl (70-99)
--- NOTE | 2024-04-12 11:24 | PN.CDI ---
CDI
- -
CDI:
Physician Documentation Request
Admit Date: 04/01/24 11:[address] Surgery
Please review the following and provide your response in the progress notes.
Clinical Indicators:
The diagnosis of NSTEMI was documented on 04/11 OP Note
- 04/11 CT Surgery Op Note 'Preoperative Diagnosis: NSTEMI with mixed pathology mitral valve regurgitation'
- 04/12 CT Surgery note 'Hx CAD/NSTEMI S/P PCI with REINALDO to ostial/prox and mid LCX, 07/18/23'
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
- Hospitalist notes 'Multivessel CAD/NSTEMI'
- Admission troponins
Laboratory Tests
03/31/24 04/01/24 04/01/24
23:24 04:16 09:18
Troponin I < 0.012 0.036 H* D 0.029
04/01/24 04/01/24 04/05/24
16:00 22:56 09:38
Troponin I 0.034 0.026 < 0.012
Please clarify the following:
____ - NSTEMI was present on admission
____ - NSTEMI was ruled out
____ - Other
Use of terms such as suspected, likely, concern for, or probable (associated with a specific diagnosis that is being evaluated, monitored, or treated as if it exists) are acceptable and can be coded in the inpatient setting, when documented at the
time of discharge.
Thank you,
Armando Lang RN
CDI Specialist
Please use your independent medical judgment in providing your response.
[2024-04-12] MEDS: MACROBID 100 MG PO ×2 (11:36→19:40)
--- NOTE | 2024-04-12 11:36 | CM ---
Chart reviewed. Patient is independent of ADLS, lives with her in a apartment, elevator access, 0 DME. Plan is for the patient to return home with CT Transitional RN. CM to follow
[2024-04-12] MEDS: NOVOLIN R INSULIN INFUSION 100 IV (11:47)
[2024-04-12 12:15] LABS: Glucose - Point of Care 145 mg/dl (70-99)
--- NOTE | 2024-04-12 12:32 | PTCARENOTE ---
pt VSS, no changes in assessment. pt OOB in chair, IS encouraged. pt given Molly 5mg PO for pain. at bedside.
[2024-04-12] MEDS: NSS IV (13:02)
[2024-04-12] MEDS: FERRLECIT 110 MG IV (13:03)
[2024-04-12 14:07] LABS: Glucose - Point of Care 138 mg/dl (70-99)
[2024-04-12] MEDS: FLEXERIL 5 MG PO (14:08)
[2024-04-12] MEDS: LASIX 40 MG IV (15:54)
[2024-04-12 15:59] LABS: Glucose - Point of Care 101 mg/dl (70-99)
--- NOTE | 2024-04-12 16:30 | PTCARENOTE ---
pt VSS, no changes in assessment. pt OOB to chair for dinner. pt bladder scanned for 272ml, CATTLE CARE WORKER aware.
--- NOTE | 2024-04-12 17:24 | PTCARENOTE ---
pt ambulated to bathroom, voided. pt c/o nausea, +emesis. PRN Zofran given.
[2024-04-12 18:14] LABS: Glucose - Point of Care 122 mg/dl (70-99)
--- NOTE | 2024-04-12 18:34 | W.PN.UPDATE ---
Update Note
Progress Note Update
CDI QUERY RESPONSE
NSTEMI was present on admission
[2024-04-12] MEDS: MAGNESIUM OXIDE 500 MG PO (19:40)
[2024-04-12 19:59] LABS: Glucose - Point of Care 113 mg/dl (70-99)
--- NOTE | 2024-04-12 20:00 | PTCARENOTE ---
Addendum entered by Russel Ford RN 04/13/24 06:04:
correction AV wires insulated
Original Note:
assumed care of patient @ 1900. received pt sitting in chair, AOx3. Anxious at times . PO ativan given. NSR on tele. +PP , trace anasarca. AV wire pulled earlier today . Lungs clear, diminished on room air satting 99 percent. belly hypoactive.
voiding in hat in bathroom. All surgical incisions CDI. R IJ cordis with kvo, R AC piv patent. insulin remains per protocol . pt assisted to bathroom and then back to bed. resting comfortably with call leung within reach .
[2024-04-12] MEDS: ATIVAN 0.5 MG PO (20:01)
[2024-04-12] MEDS: CRESTOR 20 MG PO (21:35)
[2024-04-12 21:41] LABS: Glucose - Point of Care 135 mg/dl (70-99)
[2024-04-13] VITALS (32 sets, daily range): BP systolic 101–144; BP diastolic 48–66; PULSE 81; O2SAT 98–100; BMI 29.4
[2024-04-13 00:39] LABS: Glucose - Point of Care 129 mg/dl (70-99)
--- NOTE | 2024-04-13 00:40 | PTCARENOTE ---
pt resting comfortably, call leung within reach
[2024-04-13 03:57] LABS: Glucose - Point of Care 112 mg/dl (70-99)
[2024-04-13] MEDS: ROXICODONE 5 MG PO ×3 (04:14→22:33)
[2024-04-13 04:19] LABS: Hemoglobin 7.9 g/dL (12.0-16.0); Mean Corp Hgb Conc. 34.3 g/dL (33.0-37.0); Mean Corpuscular Volume 93.1 fL (81.0-99.0); Mean Platelet Volume 10.4 fL (7.4-10.4); Platelet Count 155 10^3/uL (130-400); Red Blood Cell Count 2.47 10^6/uL (4.20-5.40); Red Cell Dist. Width 13.8 % (11.5-14.5); White Blood Cell Count 13.1 10^3/uL (4.8-10.8)
[2024-04-13 04:35] LABS: Blood Urea Nitrogen 37 mg/dl (7-17); Calcium 8.5 mg/dl (8.4-10.2); Carbon Dioxide 27 mmol/L (22-30); Chloride 105 mmol/L (98-107); Estimated Creatinine Clearance 48 ml/min; Glucose 89 mg/dl (70-99); Magnesium 2.4 mg/dl (1.6-2.3); Potassium 3.9 mmol/L (3.5-5.1); Sodium 134 mmol/L (135-145); eGFR 49.92
--- NOTE | 2024-04-13 05:00 | PTCARENOTE ---
pt walked 200 feet in hallway, now resting in chair comfortably. call leung within reach
--- NOTE | 2024-04-13 05:07 | W.PN.CT ---
Documented by User: Davis Boogie PA-C 04/13/24 06:19
Today's Communication / Plan
-
- POD #2
- Doing well. No major events overnight
- Gtt's: insulin 3.5
- complaints: pain
- CT 2M 75/215 in 12/24 hrs
- UOP 200/375 in 12/24 hrs, gentle diuresis today
- PW: A+V, no pacing needed
- Continue current meds: ASA, Plavix, Amio, Mag Ox, Protonix, metoprolol, rosuvastatin
- continue outpatient meds: escitalopram
- worsening anemia, Hgb 7.9 (8.8 yesterday) suspect to be dilutional, will follow
- OOB/IS/ambulate as tolerated
- TTE prior to discharge
Assessment / Plan
-
68 y/o female with HTN, HLD, NIDDM and CAD s/p prior PCI to the ostial/proximal and mid LCx (07/2023) admitted with left sided shoulder pain/chest pain. Found to have multivessel coronary artery disease on cardiac catheterization 04/03/2024.
Subsequent echocardiogram revealed moderate mitral regurgitation
MVCAD/MR s/p Mitral Valve Repair (32mm Ring Annuloplasty) CABG x 3 (In Situ TOVAR-LAD, RAMOS y'd off TOVAR-OM, Ao-RSVG-LPL) POD #[address] Landry
DIAMANTE: EF�60%, MV 4/1mmHg, tr-mod MR, mild-mod TR
Assessment:
-Severe multivessel CAD
-USA
-Plavix washout, last dose 04/01/24 @ 0928
-Hx CAD/NSTEMI S/P PCI with REINALDO to ostial/prox and mid LCX, 07/18/23
-HTN
-T2DM (hgb A1C 7.0)
-HLD
-Hx R axillary MSSA abscess S/p I&D 01/27
-Congenital solitary kidney
-Anxiety/depression
-Back pain d/t herniated disc S/P diskectomy/facetectomy/foraminotomy of L5-S1, 11/05/14
-S/p Hand surgery
-S/P Hysterectomy, 2004
-S/P Tubal ligation
-S/P Lumpectomy
Acute post op pain
Acute post op anemia
Acute post op respiratory insufficiency
Subjective
Procedure
S/p mitral valve repair #32mm physio ring, CABG x 3 TOVAR>LAD, RAMOS (off TOVAR) >OM, SVG>PDA with Dr. Landry 04/11/2024
-
Date of Service: April 13, 2024
Objective Data
-
Lab Results
04/13/24 03:56
04/13/24 03:56
PT 18.1 Sec (11.4-14.6) H 04/11/24 13:51
INR 1.51 04/11/24 13:51
APTT 31.9 Sec (23.4-35.0) 04/11/24 13:51
Vital Signs
Vital Signs
Temp Pulse Resp BP Pulse Ox
97.7 F 68 14 101/49 96
04/12/24 20:00 04/13/24 00:30 04/13/24 00:00 04/13/24 00:00 04/13/24 00:00
CT Intake/Output/Weight
04/12/24 04/12/24 04/13/24
06:59 18:59 06:59
Intake Total 924.3 / 2362.4 270.2 / 817.7 547.5 / 817.7
Output Total 640 / 1690 325 / 600 275 / 600
Balance 284.3 / 672.4 -54.8 / 217.7 272.5 / 217.7
SaO2: 96
Physical Exam
-
General: AOx3
Cardiovascular: Regular rate & rhythm
Respiratory: Decreased Breath Sounds
Sternum: Stable
Incision: Clean, Dry and Intact
Extremities: No Edema

Documented by User: JEYSON Fiore 04/13/24 07:37
Today's Communication / Plan
-
- POD #2
- Doing well. No major events overnight
- Gtt's: insulin 3.5
- complaints: pain
- CT 2M 75/215 in 12/24 hrs
- UOP 200/375 in 12/24 hrs, gentle diuresis today
- PW: A+V, no pacing needed
- Continue current meds: ASA, Plavix, Amio, Mag Ox, Protonix, metoprolol, rosuvastatin
- continue outpatient meds: escitalopram
- worsening anemia, Hgb 7.9 (8.8 yesterday) suspect to be dilutional, will follow
Anemia, due to acute blood loss and hemodilution
- OOB/IS/ambulate as tolerated
- TTE prior to discharge
Assessment / Plan
-
68 y/o female with HTN, HLD, NIDDM and CAD s/p prior PCI to the ostial/proximal and mid LCx (07/2023) admitted with left sided shoulder pain/chest pain. Found to have multivessel coronary artery disease on cardiac catheterization 04/03/2024.
Subsequent echocardiogram revealed moderate mitral regurgitation
MVCAD/MR s/p Mitral Valve Repair (32mm Ring Annuloplasty) CABG x 3 (In Situ TOVAR-LAD, RAMOS y'd off TOVAR-OM, Ao-RSVG-LPL) POD #[address] Landry
DIAMANTE: EF�60%, MV 4/1mmHg, tr-mod MR, mild-mod TR
Assessment:
-Severe multivessel CAD
-USA
-Plavix washout, last dose 04/01/24 @ 0928
-Hx CAD/NSTEMI S/P PCI with REINALDO to ostial/prox and mid LCX, 07/18/23
-HTN
-T2DM (hgb A1C 7.0)
-HLD
-Hx R axillary MSSA abscess S/p I&D 01/27
-Congenital solitary kidney
-Anxiety/depression
-Back pain d/t herniated disc S/P diskectomy/facetectomy/foraminotomy of L5-S1, 11/05/14
-S/p Hand surgery
-S/P Hysterectomy, 2004
-S/P Tubal ligation
-S/P Lumpectomy
Acute post op pain
Acute post op anemia
Acute post op respiratory insufficiency
Anemia, due to acute blood loss and hemodilution
[2024-04-13 05:37] LABS: Glucose - Point of Care 132 mg/dl (70-99)
[2024-04-13] MEDS: FLEXERIL 5 MG PO (05:39)
[2024-04-13] MEDS: TYLENOL 1000 MG PO ×3 (05:40→22:33)
[2024-04-13 06:38] LABS: Glucose - Point of Care 141 mg/dl (70-99)
[2024-04-13 07:03] LABS: Glucose - Point of Care 119 mg/dl (70-99)
--- NOTE | 2024-04-13 07:26 | PN.CDI ---
CDI
- -
CDI:
Physician Documentation Request
Admit Date: 04/01/24 11:[address] Surgery,
Please review the following and provide your response in the progress notes.
Clinical Indicators:
- 04/13 CT surgery note 'Acute post op anemia'
- 'worsening anemia, Hgb 7.9 (8.8 yesterday) suspect to be dilutional,'
- 04/11 1.5L IVF given
Laboratory Tests
04/09/24 04/10/24 04/11/24
02:30 12:08 13:51
Hgb 10.3 L 10.6 L 9.7 L
04/11/24 04/12/24 04/13/24
17:19 03:05 03:56
Hgb 9.8 L 8.8 L 7.9 L
Please clarify the appropriate diagnosis that supports the above lab abnormalities and additional evaluation, monitoring and/or treatment rendered:
Anemia, due to acute blood loss and hemodilution
Anemia due to hemodilution only
Other
Use of terms such as suspected, likely, concern for, or probable (associated with a specific diagnosis that is being evaluated, monitored, or treated as if it exists) are acceptable and can be coded in the inpatient setting, when documented at the
time of discharge.
Thank you,
Armando Lang RN
CDI Specialist
Please use your independent medical judgment in providing your response.
[2024-04-13 07:59] LABS: Glucose - Point of Care 113 mg/dl (70-99)
[2024-04-13] MEDS: NOVOLOG FLEXPEN 4 UNITS SC (08:16)
--- NOTE | 2024-04-13 08:24 | PTCARENOTE ---
assumed care of pt from previous shift RN, sinus rhythm on tele, VSS, +peripherla pulses, trace edema. Lungs diminished, coughing and deep breathing encouraged. +bs, poor appetite, voids clear yellow. Mediastinal CT w minimal drainage, post op sites
intact. Right IJ cordis w KVO and insulin infusing, PIV flushes easily. Plan of care reviewed w the pt and questions encouraged/
--- NOTE | 2024-04-13 08:39 | PN.DE.MGMTRT ---
Insulin Management
- -
04/13/2024: Diabetes management F/U:
Patient admitted with left sided shoulder pain/chest heaviness and one low level (altamirano zone) troponin.
PMH: CAD s/p NSTEMI 07/18/23 s/p REINALDO, HTN, HLD, Solitary Functioning Kidney, Wkbcw-Eszxsxysh-Cxzei Syndrome, Anxiety / Depression and NIDDM.
A1C 7.0%, Cr 0.9, eGFR >60. Was taking Metformin 1000 mg BID and Mounjaro 12.5mg Q . Patient currently using DexCom G6 CGM.
Patient awake, A/O x3, sitting p in chair, offers no complaints. POD #2 s/p CABG x 3 and Mitral Valve Repair, doing well.
Remains on Critical Crae Glycemic protocol, glucose range 112 to 141, requiring 4 to 6 units of insulin/hr
Will transition off drip to SQ Insulin and oral agents.
Give Lantus 15 units x1 now. STOP drip 1 hr after giving Lantus. Cont low corrective with meals.
Resume Metformin 1000 mg BID. will add Farxiga 10mg daily, $25 co-pay, pt was agreeable.
Diabetes History
- -
Type of Diabetes: 2
Pre-Admission Diabetes Regimen
04/13/24
03:56
Creatinine 1.2 H
Lab Results
Hemoglobin A1c 7.0 % (4.0-5.6) H 04/01/24 04:16
Insulin Pump Settings
IP Diabetes Regimen
04/12/24 04/12/24 04/12/24
10:29 12:13 14:06
Glucose
POC Glucose 127 H 145 H 138 H
04/12/24 04/12/24 04/12/24
15:57 18:13 19:58
Glucose
POC Glucose 101 H 122 H 113 H
04/12/24 04/13/24 04/13/24
21:40 00:36 03:55
Glucose
POC Glucose 135 H 129 H 112 H
04/13/24 04/13/24 04/13/24
03:56 05:35 06:36
Glucose 89
POC Glucose 132 H 141 H
04/13/24 04/13/24
07:02 07:58
Glucose
POC Glucose 119 H 113 H
Meal type: Breakfast
Amount consumed: 100%
Patient Education
[2024-04-13] MEDS: NEURONTIN 100 MG PO ×3 (08:49→22:33)
[2024-04-13] MEDS: LEXAPRO 20 MG PO (08:49)
[2024-04-13] MEDS: PACERONE 200 MG PO ×3 (08:49→22:33)
[2024-04-13] MEDS: SENOKOT-S 1 TABLET PO ×2 (08:50→20:19)
[2024-04-13] MEDS: MACROBID 100 MG PO (08:50)
[2024-04-13] MEDS: ASPIR LOW (ENTERIC COATED) 81 MG PO (08:50)
[2024-04-13] MEDS: PLAVIX 75 MG PO (08:50)
[2024-04-13] MEDS: LOPRESSOR 12.5 MG PO ×2 (08:50→20:19)
[2024-04-13] MEDS: PROTONIX 40 MG PO (08:51)
[2024-04-13] MEDS: MAGNESIUM OXIDE 500 MG PO ×2 (08:51→20:19)
[2024-04-13] MEDS: KCL 20 MEQ PO (08:51)
[2024-04-13] MEDS: BACTROBAN 2% OINTMENT 1 APPLIC NASAL ×2 (08:52→20:19)
[2024-04-13] MEDS: LIDOCAINE 4% PATCH 1 PATCH TOPICAL (08:52)
[2024-04-13] MEDS: VITAMIN C 500 MG PO (09:03)
[2024-04-13] MEDS: LASIX 40 MG IV (09:03)
--- NOTE | 2024-04-13 09:29 | W.PN.INTV ---
Today's Communication / Plan
Recommendations
Up OOB as tolerated
Encourage incentive spirometer use - 10x/hr for at least 4 hrs a day
Pain control
Removal of Cordis as per CT surgery
Cardiac rehab
Insulin drip weaned off - keep BG 140-180
Patient has been transferred to CVICU�telemetry status. Rubber Stamp Maker/Pulmonary service will now sign off. Please reconsult if there are any additional questions/concerns, or if patient's respiratory status deteriorates.
Assessment
-
Assessment: 68-year-old female former tobacco smoker with a past medical history of CAD s/p REINALDO x 1 to LCx, DM type II, hypertension hyperlipidemia presents with left-sided shoulder pain that radiates to LUE + upper chest pain. 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 Initial vitals in ER showed she was afebrile to 99.2 �F, pulse rate 87, breathing at 20 breaths/min, BP 152/77 and saturating 99% on room air. Initial labs showed Hb 11.1, glucose 238, initial troponin negative at <0.012
however repeat was elevated at 0.036, and initial CXR on 03/31/2024 showed no acute cardiopulmonary process. She was given aspirin, and admitted to telemetry for chest pain rule out with cardiology consulted. Regarding her history of ACS, she has
been compliant with aspirin + Plavix. 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
the LAD with normal filling pressures (LVEDP: 10 mmHg). Cardiothoracic surgery was consulted to evaluate for CABG. Spirometry was normal on 04/04/2024 with no evidence of restriction or obstructive lung disease. TTE on 04/04 showed preserved LVEF
at 60 to 65% with normal RV size/function, with moderate�severe eccentric mitral regurgitation and trace TR. Plan was for CABG + mitral valve replacement after Plavix washout. On 04/11/2024 she obtained CABG x 3 + mitral valve repair, and was
transferred to CVICU postoperatively for further care. Critical care services consulted for additional management/recommendations.
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
Impression:
#Multivessel CAD with in-stent restenosis of ostial/proximal LCx stent s/p CABG x 3 (POD#2)
#Moderate-severe mitral valve regurgitation s/p MV-repair (POD#2)
#Anemia
#DM type II (A1c: 7 from 04/01/2024)
#Abnormal urinalysis with +1 leukocyte esterase and 26�30 urine WBC (from UA on 04/11/2024 with UCx showing NGTD)
#Former tobacco use disorder
Plan:
Patient successfully extubated on 04/11/2024
Maintain SpO2 >90-94%
prn nebulized bronchodilators
Pain control
Removal of right IJ cordis per CT surgery
Maintain MAP>65
Replete electrolytes with K>4, Mg>2
Mediastinal chest tubes removed today
Monitor hemoglobin
Monitor platelet count and coags
Transfuse blood product if needed to keep Hb>7g/dL, plt>50k (given post-operative status)
Monitor blood sugar to maintain euglycemia with goal BG 140-180
Insulin drip has been weaned off
Continue insulin SQ supplementation as needed to maintain BG goal as above
Aspiration precautions
DVT prophylaxis
Early nutrition
Early mobilization
Patient has been transferred to CVICU�telemetry status. Rubber Stamp Maker/Pulmonary service will now sign off. Thank you for allowing us to be involved in the care of this patient. Please reconsult if there are any additional questions/concerns, or if
patient's respiratory status deteriorates.
Total time spent today was 55 minutes for this encounter. Time includes reviewing laboratory test/imaging results, reviewing pertinent medical records, obtaining and reviewing medical history, performing an appropriate exam, ordering medications,
tests and procedures. Time also includes documentation of this encounter, coordinating patient care and communicating with other healthcare professionals. Total time does not include separately billed tests performed on this date of service.
Data:
CXR 04/12/2024: No acute disease of the chest
CXR 04/13/2024: Low lung volumes with no active pulmonary process.
Subjective Dataa
Subjective Data
Date of Service:
Date of Service: April 13, 2024
Chief Complaint: Rubber Stamp Maker Follow Up and Pulmonary Follow Up
Subjective:
Patient seen and evaluated today at bedside. Insulin turned off this morning. She is on room air breathing comfortably, saturating 95%. BP 119/57, heart rate 80 and afebrile. No acute events reported from overnight.
Review of Systems
General: Other (Negative unless mentioned above)
Objective Data
Data Reviewed
Vital Signs / I&O / Oxygen:
Vital Signs
Temp Pulse Resp BP Pulse Ox
98.2 F 74 16 121/53 96
04/13/24 08:00 04/13/24 08:00 04/13/24 08:00 04/13/24 08:00 04/13/24 05:09
Intake and Output
04/12/24 04/13/24 04/14/24
06:59 06:59 06:59
Intake Total 2350.6 / 2362.4 817.7 / 817.7 115 / 115
Output Total 1690 / 1690 1100 / 1100
Balance 660.6 / 672.4 -282.3 / -282.3 115 / 115
SaO2 [CPAP] 99
SaO2 [SIMV] 100
SaO2 96
Nasal Cannula flow liters per 2
minute
Physical Exam
General: Respiratory Distress (Negative ), Comfortable, Chills (Negative ) and Sweats (Negative )
HEENT: Normocephalic, Anicteric and Other (Cordis catheter in place covered with Tegaderm on right anterior neck, no erythema or purulence seen)
Cardiovascular: S1-S2 and Peripheral Edema (Negative )
Respiratory: Wheeze (Negative ), Crackles (Bibasilar), Rhonchi (Negative ) and Non-Labored Respirations
GI: Soft, Non Distended, Non Tender and Normal Bowel Sounds
Neurology: Awake, Alert and Tremors (Negative )
Skin: Warm, Dry and Jaundice (Negative )
Labs/Micro/Reports
Lab Data
04/13/24 03:56
Microbiology
04/11/24 07:00 Urine Urine Culture - Preliminary
Gram negative bacilli
04/10/24 09:09 Nose MRSA Screen - Final
No Methicillin Resistant Staphylococcus aureus isolated.
--- NOTE | 2024-04-13 09:42 | PTCARENOTE ---
Urine culture + Klebsiella, verified w infection prevention that pt does not need to be on isolation. Also, nasal MRSA negative x2. Pt cleared from modified isolation precautions by infection prevention.
[2024-04-13] MEDS: FARXIGA 10 MG PO (10:00)
[2024-04-13] MEDS: LANTUS 0.15 UNITS SC (10:01)
[2024-04-13] MEDS: GLUCOPHAGE 1000 MG PO ×2 (10:01→16:43)
[2024-04-13 10:03] LABS: Glucose - Point of Care 100 mg/dl (70-99)
--- NOTE | 2024-04-13 10:09 | PTCARENOTE ---
pacing wires removed by CT DIMITRI.
--- NOTE | 2024-04-13 10:17 | W.PN.CD ---
Today's Communication / Plan
-
cont ASA, Plavix, statin, metoprolol
trend tele
Impression / Plan
-
Impression/Plan: 68 y/o female with HTN, HLD, NIDDM and CAD s/p prior PCI to the ostial/proximal and mid LCx (07/2023) admitted with left sided shoulder pain/chest pain. Found to have multivessel coronary artery disease on cardiac catheterization
04/03/2024. Subsequent echocardiogram revealed moderate mitral regurgitation.
#Multivessel CAD/moderate MR:
-prior NSTEMI and stenting 07/2023
-s/p MVCAD/MR s/p Mitral Valve Repair (32mm Ring Annuloplasty) CABG x 3 (In Situ TOVAR-LAD, RAMOS y'd off TOVAR-OM, Ao-RSVG-LPL) 04/11
-stable, doing well
-SR on tele
-cont ASA, Plavix, statin, metoprolol
#HTN
-Monitor as she recovers from OR
#HLD
-Chronic, stable.
-Total cholesterol = 126, LDL = 47, HDL = 54, Triglycerides = 128.
-Continue rosuvastatin 20 mg daily.
#DM
-Hemoglobin A1c 7.0.
-on farxiga
Physical Exam
Vital Signs/Labs
Vital Signs
Temp Pulse Resp BP Pulse Ox
98.2 F 80 16 144/60 97
04/13/24 08:00 04/13/24 10:00 04/13/24 10:00 04/13/24 10:00 04/13/24 10:00
04/12/24 04/13/24 04/14/24
06:59 06:59 06:59
Actual Weight 79.6 kg 80.2 kg
04/13/24 03:56
PT 18.1 Sec (11.4-14.6) H 04/11/24 13:51
INR 1.51 04/11/24 13:51
APTT 31.9 Sec (23.4-35.0) 04/11/24 13:51
Magnesium 2.4 mg/dl (1.6-2.3) H 04/13/24 03:56
Triglycerides 128 mg/dl (10-149) 04/01/24 04:16
LDL Cholesterol, Calc 47 mg/dl 04/01/24 04:16
VLDL Cholesterol, Calc 25 mg/dl (0-30) 04/01/24 04:16
HDL Cholesterol 54 mg/dl 04/01/24 04:16
Physical Exam
Constitutional: No acute distress and Comfortable
EENT: Moist mucous membranes
Cardiovascular: Rhythm & rate is regular, Pedal edema is absent, JVD pressure is normal and Systolic murmur absent
Respiratory: Respiratory effort normal, Lungs clear to auscul. and Wheeze Absent
GI: Soft
Neuro/Psych: AO x 3
Data Reviewed
-
Date of Service: April 13, 2024
EKG: Other (Tele: SR 70s)
Labs: Labs Reviewed by me
--- NOTE | 2024-04-13 11:21 | PTCARENOTE ---
Mediastinal chest tubes x2 removed per order; Insulin drip discontinued per order.
[2024-04-13] MEDS: ANESTHETIC LOZENGE 1 LOZENGE PO (11:59)
[2024-04-13] MEDS: KEFLEX 500 MG PO ×2 (11:59→20:20)
--- NOTE | 2024-04-13 12:18 | PTCARENOTE ---
Assessment unchanged; NSR on monitor and VSS; pt resting comfortably in chair and cardiac rehab at bedside along with .
[2024-04-13] MEDS: NSS 500 IV (12:37)
[2024-04-13] MEDS: NOVOLOG FLEXPEN-LOW RESISTANCE SC (13:03)
[2024-04-13 13:04] LABS: Glucose - Point of Care 134 mg/dl (70-99)
[2024-04-13 15:15] LABS: Blood Urea Nitrogen 38 mg/dl (7-17); Calcium 8.6 mg/dl (8.4-10.2); Carbon Dioxide 25 mmol/L (22-30); Chloride 100 mmol/L (98-107); Estimated Creatinine Clearance 48 ml/min; Glucose 158 mg/dl (70-99); Potassium 4.7 mmol/L (3.5-5.1); Sodium 129 mmol/L (135-145); eGFR 49.92
--- NOTE | 2024-04-13 15:30 | PTCARENOTE ---
PRBC transfusion completed, pt tolerated.
[2024-04-13] MEDS: FERRLECIT 110 MG IV (16:06)
[2024-04-13 16:17] LABS: Glucose - Point of Care 162 mg/dl (70-99)
[2024-04-13] MEDS: NOVOLOG FLEXPEN-LOW RESISTANCE 300 UNITS SC (16:43)
[2024-04-13] MEDS: ATIVAN 0.5 MG PO (20:19)
--- NOTE | 2024-04-13 20:30 | PTCARENOTE ---
Patient received OOB in chair watching television. Patient A+A+Ox3. No neurological deficits noted. Patient to bathroom with minimal assistance. Steady gait. Sternal Precautions. Patient to bed. No s/s of respiratory distress. No c/o SOB.
No adventitious breath sounds. Room air. SaO2 100%. Chest tube dressing intact. Sinus Rhythm. Heart rate 80's. Normoactive bowel sounds. No BM. No c/o nausea. No vomiting. Voiding without difficulty. Patient with no c/o back or flank
pain. Sternal incision - Intact - Surgical adhesive. Right groin puncture site intact - Open to air. Right knee incision - Intact - Surgical adhesive. Right I.J. Cordis - Intact and patent - Saline flush 10 ml/hr. Assessment as documented.
[2024-04-13 22:29] LABS: Glucose - Point of Care 150 mg/dl (70-99)
[2024-04-13] MEDS: CRESTOR 20 MG PO (22:33)
[2024-04-13] MEDS: DILAUDID 0.25 MG IV (23:11)
[2024-04-14] VITALS (10 sets, daily range): BP systolic 92–139; BP diastolic 49–68; PULSE 83; O2SAT 98
--- NOTE | 2024-04-14 | PTCARENOTE ---
Patient with c/o 7/10 sternal pain. Patient given Tylenol 1,000mg PO and Roxicodone 5 mg PO with minimal relief. IV Dilaudid 0.25 mg administered without difficulty - Positive relief provided. Patient now sleeping without difficulty. Assessment
as documented.
[2024-04-14] MEDS: DILAUDID 0.25 MG IV ×2 (04:54→20:03)
[2024-04-14] MEDS: TYLENOL 1000 MG PO ×3 (04:55→22:10)
--- NOTE | 2024-04-14 04:56 | W.PN.CT ---
Today's Communication / Plan
-
- POD #3
- Doing well. No major events overnight
- complaints: pain
- UOP 800/2000 in 12/24 hrs, continue gentle diuresis
- PW: A+V, no pacing needed
- Continue current meds: ASA, Plavix, Amio, Mag Ox, Protonix, metoprolol, rosuvastatin, farxiga
- continue outpatient meds: escitalopram, metformin
- anemia, Hgb 9.4 (7.9 yesterday)
- OOB/IS/ambulate as tolerated
- TTE prior to discharge
Assessment / Plan
-
68 y/o female with HTN, HLD, NIDDM and CAD s/p prior PCI to the ostial/proximal and mid LCx (07/2023) admitted with left sided shoulder pain/chest pain. Found to have multivessel coronary artery disease on cardiac catheterization 04/03/2024.
Subsequent echocardiogram revealed moderate mitral regurgitation
MVCAD/MR s/p Mitral Valve Repair (32mm Ring Annuloplasty) CABG x 3 (In Situ TOVAR-LAD, RAMOS y'd off TOVAR-OM, Ao-RSVG-LPL) POD #3
DIAMANTE: EF�60%, MV 4/1mmHg, tr-mod MR, mild-mod TR
Assessment:
-Severe multivessel CAD
-USA
-Plavix washout, last dose 04/01/24 @ 0928
-Hx CAD/NSTEMI S/P PCI with REINALDO to ostial/prox and mid LCX, 07/18/23
-HTN
-T2DM (hgb A1C 7.0)
-HLD
-Hx R axillary MSSA abscess S/p I&D 01/27
-Congenital solitary kidney
-Anxiety/depression
-Back pain d/t herniated disc S/P diskectomy/facetectomy/foraminotomy of L5-S1, 11/05/14
-S/p Hand surgery
-S/P Hysterectomy, 2004
-S/P Tubal ligation
-S/P Lumpectomy
Acute post op pain
Acute post op anemia
Acute post op respiratory insufficiency
Anemia, due to acute blood loss and hemodilution
Subjective
Procedure
S/p mitral valve repair #32mm physio ring, CABG x 3 TOVAR>LAD, RAMOS (off TOVAR) >OM, SVG>PDA with Dr. Landry 04/11/2024
-
Date of Service: April 14, 2024
Objective Data
-
Lab Results
04/14/24 04:42
04/14/24 04:42
PT 18.1 Sec (11.4-14.6) H 04/11/24 13:51
INR 1.51 04/11/24 13:51
APTT 31.9 Sec (23.4-35.0) 04/11/24 13:51
Vital Signs
Vital Signs
Temp Pulse Resp BP Pulse Ox
98.0 F 76 16 122/65 92
04/13/24 22:30 04/14/24 04:33 04/13/24 22:30 04/14/24 04:33 04/14/24 04:33
CT Intake/Output/Weight
04/13/24 04/13/24 04/14/24
06:59 18:59 06:59
Intake Total 547.5 / 817.7 410 / 720 310 / 720
Output Total 775 / 1100 1220 / 2020 800 / 2020
Balance -227.5 / -282.3 -810 / -1300 -490 / -1300
SaO2: 92
Physical Exam
-
General: AOx3
Cardiovascular: Regular rate & rhythm
Respiratory: Decreased Breath Sounds (poor effort)
Sternum: Stable
Incision: Clean, Dry and Intact
Extremities: No Edema
[2024-04-14 04:57] LABS: Hematocrit 27.1 % (37.0-47.0); Hemoglobin 9.4 g/dL (12.0-16.0); Mean Corp Hgb Conc. 34.7 g/dL (33.0-37.0); Mean Corpuscular Hgb 31.2 pg (27.0-31.0); Mean Platelet Volume 9.7 fL (7.4-10.4); Platelet Count 180 10^3/uL (130-400); Red Blood Cell Count 3.01 10^6/uL (4.20-5.40); Red Cell Dist. Width 14.9 % (11.5-14.5); White Blood Cell Count 12.9 10^3/uL (4.8-10.8)
--- NOTE | 2024-04-14 05:00 | PTCARENOTE ---
Patient A+A+Ox3. No neurological deficits noted. OOB to bathroom. Walked in hallway. OOB to chair watching television. Assessment/Interventions as documented.
[2024-04-14 05:23] LABS: Blood Urea Nitrogen 36 mg/dl (7-17); Calcium 8.6 mg/dl (8.4-10.2); Carbon Dioxide 26 mmol/L (22-30); Chloride 102 mmol/L (98-107); Estimated Creatinine Clearance 53 ml/min; Glucose 143 mg/dl (70-99); Magnesium 2.4 mg/dl (1.6-2.3); Potassium 4.7 mmol/L (3.5-5.1); Sodium 133 mmol/L (135-145); eGFR 55.42
--- NOTE | 2024-04-14 07:18 | W.PN.CD ---
Today's Communication / Plan
-
Increase furosemide to 80 mg IV BID and monitor response.
Encourage incentive spirometry and ambulation.
Discharge planning.
Impression / Plan
-
Impression/Plan: 68 y/o female with HTN, HLD, NIDDM and CAD s/p prior PCI to the ostial/proximal and mid LCx (07/2023) admitted with left sided shoulder pain/chest pain. Found to have multivessel coronary artery disease on cardiac catheterization
04/03/2024. Subsequent echocardiogram revealed moderate mitral regurgitation.
#Multivessel CAD/moderate MR:
-Chronic.
-Prior NSTEMI and PCI 07/2023.
-Cardiac catheterization revealed
-s/p MVCAD/MR s/p #32 Mitral Valve ring annuloplasty repair (Physio II ring, SN [id number]) and CABG x 3 (In Situ TOVAR-LAD, RAMOS y'd off TOVAR-OM, Ao-RSVG-LPL) with Dr. Landry, 04/11/2024.
-Cont ASA, clopidogrel, statin, metoprolol.
-Weight continues to rise and Na/Cr suggesting cardiorenal syndrome.
-Increase furosemide to 80 mg IV BID and monitor response.
-Encourage ambulation and incentive spirometry.
#HTN
-Chronic, stable.
-Restart home medications as BP dictates.
#HLD
-Chronic, stable.
-Total cholesterol = 126, LDL = 47, HDL = 54, Triglycerides = 128.
-Continue rosuvastatin 20 mg daily.
#DM
-Hemoglobin A1c 7.0.
-Continue dapagliflozin 10 mg daily.
Subjective/Interval History:
Weight is up 1.7 kg from yesterday, 4.2 kg from javed (81.9 <-- 80.2 <-- 77.7).
Furosemide 40 mg IV daily given yesterday and day before.
Na is falling and creatinine has risen to 1.1.
Transfused one unit of PRBC's.
She feels well.
DATA:
Cardiac Catheterization, 04/03/2024:
CONCLUSIONS
1. Left dominant circulation with critical, 90% in-stent restenosis of the ostial/proximal circumflex stent, a chronic total occlusion of the LPDA, and moderate, occlusive tandem lesions in the LAD (30% ostial, 40% mid and 50-60% mid/distal, IFR =
0.84).
2. Normal filling pressures (LVEDP = 10 mmHg at 77.6 kg).
DIAMANTE, 04/07/2024:
CONCLUSIONS
Patient with significant coughing throughout study.
Normal biventricular size and systolic function without regional wall motion
abnormality. Estimated LVEF 60-65%.
Thickened mitral valve leaflets. The posterior leaflet is mildly tethered.
There is is larger lateral jet, and smaller medial jet.
Moderate mitral regurgitation.
No mitral stenosis. Mean gradient 2 mmHg.
Compared to TTE 04/04/24: MR looks moderate, compared to moderate/severe on
prior.
Physical Exam
Vital Signs/Labs
Vital Signs
Temp Pulse Resp BP Pulse Ox
36.9 C 76 16 122/65 92
04/14/24 04:30 04/14/24 04:33 04/14/24 04:30 04/14/24 04:33 04/14/24 04:58
04/12/24 04/13/24 04/14/24
11:59 11:59 11:59
Actual Weight 79.6 kg 80.2 kg 81.9 kg
04/14/24 04:42
04/14/24 04:42
PT 18.1 Sec (11.4-14.6) H 04/11/24 13:51
INR 1.51 04/11/24 13:51
APTT 31.9 Sec (23.4-35.0) 04/11/24 13:51
Magnesium 2.4 mg/dl (1.6-2.3) H 04/14/24 04:42
Triglycerides 128 mg/dl (10-149) 04/01/24 04:16
LDL Cholesterol, Calc 47 mg/dl 04/01/24 04:16
VLDL Cholesterol, Calc 25 mg/dl (0-30) 04/01/24 04:16
HDL Cholesterol 54 mg/dl 04/01/24 04:16
Physical Exam
Constitutional: No acute distress and Comfortable
EENT: Anicteric and Moist mucous membranes
Cardiovascular: Rhythm & rate is regular, JVD pressure is normal, Pedal edema present (1+ LE edema.), S1S2 is normal and Murmur/rub/gallop absent
Respiratory: Respiratory effort normal, Rhonchi Present (Bilateral bases.) and Other (Decreased at the bases.)
GI: Soft, Distention absent, Flat, Non tender and Normal bowel sounds
Neuro/Psych: AO x 3
Data Reviewed
-
Date of Service: April 14, 2024
Medical Decision Making: Reviewed Test Results, Independent Historian Assessment and Test Interpretation
EKG: Tracing Personally Visualized and interpreted and Report Reviewed by me
Echo: Tracing Personally Visualized and interpreted and Report Reviewed by me
X-Ray/CT/US/MRI/NUC/PET: Image Personally Visualized and interpreted and Report Reviewed by me
Medical Tests (PFT, Pathology etc): Image Personally Visualized and interpreted and Report Reviewed by me
Labs: Labs Reviewed by me
Old Records: Reviewed
--- NOTE | 2024-04-14 07:25 | PN.DE.MGMTRT ---
Insulin Management
- -
04/14/2024: Diabetes management F/U:
Patient admitted with left sided shoulder pain/chest heaviness and one low level (altamirano zone) troponin.
PMH: CAD s/p NSTEMI 07/18/23 s/p REINALDO, HTN, HLD, Solitary Functioning Kidney, Jwgeu-Azkasfqfp-Xcsog Syndrome, Anxiety / Depression and NIDDM.
A1C 7.0%, Cr 0.9, eGFR >60. Was taking Metformin 1000 mg BID and Mounjaro 12.5mg Q . Patient currently using DexCom G6 CGM.
Patient awake, A/O x3, sitting up in chair, offers no complaints. POD #3 s/p CABG x 3 and Mitral Valve Repair, doing well.
Was transitioned off Critical Care Glycemic protocol to oral agents yesterday.
Glucose range 100 to 160, required 3 units of corrective insulin with diner last night, otherwise, no hyperglycemic excursions noted.
Will cont Metformin 1000 mg BID and Farxiga 10mg daily, $25 co-pay, pt was agreeable.
Diabetes History
- -
Type of Diabetes: 2
Pre-Admission Diabetes Regimen
04/13/24 04/14/24
14:15 04:42
Creatinine 1.2 H 1.1 H
Lab Results
Hemoglobin A1c 7.0 % (4.0-5.6) H 04/01/24 04:16
Insulin Pump Settings
IP Diabetes Regimen
04/13/24 04/13/24 04/13/24
07:58 10:02 13:01
Glucose
POC Glucose 113 H 100 H 134 H
04/13/24 04/13/24 04/13/24
14:15 16:15 22:28
Glucose 158 H
POC Glucose 162 H 150 H
04/14/24
04:42
Glucose 143 H
POC Glucose
Meal type: Dinner
Meal type: Breakfast
Amount consumed: 55%
Patient Education
[2024-04-14 07:57] LABS: Glucose - Point of Care 164 mg/dl (70-99)
--- NOTE | 2024-04-14 08:00 | PTCARENOTE ---
pt received from previous RN, oriented, OOB in chair. SR on the monitor, HR 80s. SBP 110s. palpable pulses, trace generalized edema. pt on RA, 100% POX. lung diminished in bases. IS encouraged. productive cough. pt abdomen s/n, denies n/v. +BS.
voids. tolerating diet. ambulates. sternal incision ANA MARÍA, approximated. chest tube dressing c/d/i. R groin puncture intact. RLE incision ANA MARÍA. RIJ cordis maintained. PIV. ECHO completed. see worklist for VS, I&O, and assessment.
[2024-04-14] MEDS: PACERONE 200 MG PO ×3 (08:30→22:10)
[2024-04-14] MEDS: LEXAPRO 20 MG PO (08:30)
[2024-04-14] MEDS: PROTONIX 40 MG PO (08:31)
[2024-04-14] MEDS: FARXIGA 10 MG PO (08:31)
[2024-04-14] MEDS: KEFLEX 500 MG PO ×2 (08:31→20:03)
[2024-04-14] MEDS: NOVOLOG FLEXPEN-LOW RESISTANCE 1 UNITS SC ×2 (08:31→17:42)
[2024-04-14] MEDS: ASPIR LOW (ENTERIC COATED) 81 MG PO (08:31)
[2024-04-14] MEDS: LOPRESSOR 25 MG PO ×2 (08:31→20:03)
[2024-04-14] MEDS: PLAVIX 75 MG PO (08:31)
[2024-04-14] MEDS: NEURONTIN 100 MG PO ×3 (08:31→22:10)
[2024-04-14] MEDS: SENOKOT-S 1 TABLET PO ×2 (08:31→20:02)
[2024-04-14] MEDS: MAGNESIUM OXIDE 500 MG PO ×2 (08:31→20:03)
[2024-04-14] MEDS: VITAMIN C 500 MG PO (08:31)
[2024-04-14] MEDS: GLUCOPHAGE 1000 MG PO ×2 (08:31→17:42)
[2024-04-14] MEDS: LIDOCAINE 4% PATCH TOPICAL (08:32)
[2024-04-14] MEDS: BACTROBAN 2% OINTMENT 1 APPLIC NASAL ×2 (08:32→20:03)
[2024-04-14] MEDS: LASIX 60 MG IV ×2 (09:00→16:03)
--- NOTE | 2024-04-14 11:08 | CM ---
Chart reviewed. Patient is independent of ADLS, lives with her in a apartment, elevator access, 0 DME. Patient ambulating the halls. Plan is for the patient to return home with CT Transitional RN. CM to follow
[2024-04-14] MEDS: NSS IV (11:09)
--- NOTE | 2024-04-14 11:19 | PTCARENOTE ---
pt VSS, no changes in assessment. pt ambulated in hallway w/ CR, stairs completed. at bedside.
[2024-04-14 12:31] LABS: Glucose - Point of Care 213 mg/dl (70-99)
[2024-04-14] MEDS: NOVOLOG FLEXPEN-LOW RESISTANCE 2 UNITS SC (13:03)
[2024-04-14] MEDS: FERRLECIT 110 MG IV (13:22)
--- NOTE | 2024-04-14 13:34 | PTCARENOTE ---
Patient received from previous shift resting oob in chair, AAO x 3, states pain controlled. Awaiting lunch. NSR via cm. at bedside for visit. Patient and spouse updated to plan of care for remainder of the day, in agreement. See work list
for full assessment and interventions performed.
--- NOTE | 2024-04-14 16:07 | PTCARENOTE ---
VS obtained, assessment stable. Patient resting oob bed watching television. visiting.
[2024-04-14] MEDS: ZOFRAN 4 MG IV (17:36)
[2024-04-14 17:40] LABS: Glucose - Point of Care 184 mg/dl (70-99)
[2024-04-14] MEDS: FLEXERIL 5 MG PO (18:25)
[2024-04-14] MEDS: ATIVAN 0.5 MG PO (20:32)
--- NOTE | 2024-04-14 21:20 | PTCARENOTE ---
Assumed care of pt from dayshift RN. Walking rounds completed. Pt AAOx3. SR on the tele monitor. HR 80s. BP stable. Palpable pulses throughout. Trace edema. Pt on RA. POX 98%. Lung sounds diminished in the bases. IS and deep breathing encouraged. CT
dressing changed. Abdomen round, nontender. +BS. Pt voiding yellow urine w/o issue. No BM. All surgical sites stable. Right IJ cordis maintained. IV team placed new right wrist 22 gauge IV. Pt c/o pain - see NOV. Pt repositioned in bed. Call leung
within reach. See worklist for full nursing assessment and interventions.
[2024-04-14] MEDS: CRESTOR 20 MG PO (22:10)
[2024-04-14 23:08] LABS: Glucose - Point of Care 192 mg/dl (70-99)
[2024-04-15 00:11] VITALS: BP 105/51
--- NOTE | 2024-04-15 00:11 | PTCARENOTE ---
No change in assessment. Pt SR on the monitor. HR 70s. BP 105/51. Pt on RA. POX 94-96%. All surgical sites stable. Pt resting in bed at this time. Call leung within reach.
[2024-04-15 04:32] VITALS: BP 119/60
[2024-04-15 04:58] LABS: Hematocrit 25.3 % (37.0-47.0); Hemoglobin 8.8 g/dL (12.0-16.0); Mean Corp Hgb Conc. 34.8 g/dL (33.0-37.0); Mean Corpuscular Hgb 31.2 pg (27.0-31.0); Mean Corpuscular Volume 89.7 fL (81.0-99.0); Platelet Count 213 10^3/uL (130-400); Red Blood Cell Count 2.82 10^6/uL (4.20-5.40); Red Cell Dist. Width 14.2 % (11.5-14.5); White Blood Cell Count 10.6 10^3/uL (4.8-10.8)
--- NOTE | 2024-04-15 05:03 | PTCARENOTE ---
No acute changes in assessment. Pt SR on the tele monitor. HR 70s. BP stable. Pt on RA. POX 97%. Labs drawn and sent. Right IJ cordis pulled per order. Pt in bed laying flat at this time. Call leung within reach.
[2024-04-15 05:20] LABS: Blood Urea Nitrogen 38 mg/dl (7-17); Calcium 8.3 mg/dl (8.4-10.2); Carbon Dioxide 31 mmol/L (22-30); Chloride 98 mmol/L (98-107); Estimated Creatinine Clearance 49 ml/min; Glucose 121 mg/dl (70-99); Magnesium 2.3 mg/dl (1.6-2.3); Potassium 3.8 mmol/L (3.5-5.1); Sodium 131 mmol/L (135-145); eGFR 49.92
[2024-04-15 05:29] VITALS: BP 135/64
[2024-04-15] MEDS: TYLENOL 1000 MG PO (05:36)
--- NOTE | 2024-04-15 06:50 | W.PN.CT ---
Today's Communication / Plan
-
-pod #4
-no issues overnight
-s/p Echo 04/14
-d/c Cordis
-UO 1000/3075+ in 12/24 hrs
-follow Na - 131 today
-possible d/c soon
-ambulate
Assessment / Plan
-
68 y/o female with HTN, HLD, NIDDM and CAD s/p prior PCI to the ostial/proximal and mid LCx (07/2023) admitted with left sided shoulder pain/chest pain. Found to have multivessel coronary artery disease on cardiac catheterization 04/03/2024.
Subsequent echocardiogram revealed moderate mitral regurgitation
MVCAD/MR s/p Mitral Valve Repair (32mm Ring Annuloplasty) CABG x 3 (In Situ TOVAR-LAD, RAMOS y'd off TOVAR-OM, Ao-RSVG-LPL) POD #4
DIAMANTE: EF�60%, MV 4/1mmHg, tr-mod MR, mild-mod TR
Assessment:
-Severe multivessel CAD
-USA
-Plavix washout, last dose 04/01/24 @ 0928
-Hx CAD/NSTEMI S/P PCI with REINALDO to ostial/prox and mid LCX, 07/18/23
-HTN
-T2DM (hgb A1C 7.0)
-HLD
-Hx R axillary MSSA abscess S/p I&D 01/27
-Congenital solitary kidney
-Anxiety/depression
-Back pain d/t herniated disc S/P diskectomy/facetectomy/foraminotomy of L5-S1, 11/05/14
-S/p Hand surgery
-S/P Hysterectomy, 2004
-S/P Tubal ligation
-S/P Lumpectomy
Acute post op pain
Acute post op anemia
Acute post op respiratory insufficiency
Anemia, due to acute blood loss and hemodilution
Acute postop hyponatremia
Discussed patient care with: Nursing and Care Team
Subjective
Procedure
S/p mitral valve repair #32mm physio ring, CABG x 3 TOVAR>LAD, RAMOS (off TOVAR) >OM, SVG>PDA with Dr. Landry 04/11/2024
-
Date of Service: April 15, 2024
Objective Data
-
Lab Results
04/15/24 04:33
04/15/24 04:33
PT 18.1 Sec (11.4-14.6) H 04/11/24 13:51
INR 1.51 04/11/24 13:51
APTT 31.9 Sec (23.4-35.0) 04/11/24 13:51
Vital Signs
Vital Signs
Temp Pulse Resp BP Pulse Ox
98.5 F 79 18 135/64 100
04/15/24 04:32 04/15/24 05:29 04/15/24 04:32 04/15/24 05:29 04/15/24 05:29
CT Intake/Output/Weight
04/14/24 04/14/24 04/15/24
06:59 18:59 06:59
Intake Total 600 / 1010 540 / 630 90 / 630
Output Total 1200 / 2420 2075 / 3075 1000 / 3075
Balance -600 / -1410 -1535 / -2445 -910 / -2445
SaO2: 100
Physical Exam
-
General: Awake and AOx3
Cardiovascular: Regular rate & rhythm, No Murmurs and No Rub
Respiratory: Clear and Decreased Breath Sounds
Sternum: Stable
Incision: Clean, Dry and Intact
Extremities: No Edema
Data Reviewed
-
Lab Results: Results Reviewed
Medications: Active Meds Reviewed
Chest X-Ray: Report Reviewed and Image Reviewed
ECG: Report Reviewed and Image Reviewed
[2024-04-15 07:20] VITALS: BMI 29.5
[2024-04-15 07:54] VITALS: BP 125/61
[2024-04-15 07:57] LABS: Glucose - Point of Care 172 mg/dl (70-99)
[2024-04-15] MEDS: NOVOLOG FLEXPEN-LOW RESISTANCE 1 UNITS SC (07:57)
--- NOTE | 2024-04-15 08:00 | PTCARENOTE ---
pt received from previous RN, oriented, OOB in chair. SR on the monitor, HR 70-80s. SBP 120s. palpable pulses, trace generalized edema. pt on RA, 98% POX. lung diminished in bases. IS encouraged. productive cough. pt abdomen s/n, denies n/v. +BS, pt
states had small BM overnight. voids. tolerating diet. ambulates. sternal incision AIX ADMINISTRATOR, approximated. chest tube dressing c/d/i. R groin puncture intact. RLE incision ANA MARÍA. R neck dressing intact. PIV. see worklist for VS, I&O, and assessment.
[2024-04-15] MEDS: VITAMIN C 500 MG PO (08:28)
[2024-04-15] MEDS: ROXICODONE 5 MG PO (08:28)
[2024-04-15] MEDS: LEXAPRO 20 MG PO (08:28)
[2024-04-15] MEDS: NEURONTIN 100 MG PO (08:28)
[2024-04-15] MEDS: SENOKOT-S 1 TABLET PO (08:28)
[2024-04-15] MEDS: FARXIGA 10 MG PO (08:28)
[2024-04-15] MEDS: PROTONIX 40 MG PO (08:28)
[2024-04-15] MEDS: PACERONE 200 MG PO (08:28)
[2024-04-15] MEDS: LOPRESSOR 25 MG PO (08:28)
[2024-04-15] MEDS: ASPIR LOW (ENTERIC COATED) 81 MG PO (08:28)
[2024-04-15] MEDS: MAGNESIUM OXIDE 500 MG PO (08:28)
[2024-04-15] MEDS: GLUCOPHAGE 1000 MG PO (08:29)
[2024-04-15] MEDS: LIDOCAINE 4% PATCH TOPICAL (08:29)
[2024-04-15] MEDS: KEFLEX 500 MG PO (08:29)
[2024-04-15] MEDS: LASIX 60 MG IV (08:30)
[2024-04-15] MEDS: BACTROBAN 2% OINTMENT 1 APPLIC NASAL (08:31)
[2024-04-15] MEDS: PLAVIX 75 MG PO (08:34)
[2024-04-15] MEDS: KCL 40 MEQ PO (08:51)
--- NOTE | 2024-04-15 09:41 | W.DCSUMMARY ---
Discharge Summary
Discharge Data
Date of Admission: 04/01/24
Date of Discharge: 04/15/24
Total time spent discharging patient (in min): 45
-
Pending Results: No
Hospital Course
Primary care physician:
Dr. Senia Abbasi
Outpatient trucking contractor:
Dr. Francis Ying
Inpatient consultants:
CBC, Light Oil Operator, Anesthesia, DM management crepe maker
Procedures:
1. Left Heart Catheterization
2. CABG x 3 (In Situ TOVAR-LAD, RAMOS y'd off TOVAR-OM, Ao-RSVG-LPL) and Mitral Valve Repair (32mm Ring Annuloplasty)
Primary Diagnosis:
1. NSTEMI with mixed pathology mitral valve regurgitation
Secondary Diagnoses:
1. Hypertension
2. Hyperlipidemia
3. Congenital solitary kidney
4. Nfshn-Zgjbfvsrj-Xzbbr syndrome
5. Diabetes mellitus type 2
6. Anxiety
7. Acute postoperative anemia requiring blood transfusion
8. Acute postop hyponatremia secondary to fluid overload
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 Landry.
Hospital course:
Patient initially presented presented to [facility] on 04/01 with complaints of some chest heaviness. She was subsequently found to have multivessel coronary disease via left heart cath. And a transthoracic echocardiogram revealed moderate
mitral valve disease therefore she went for a DIAMANTE that confirmed moderate mitral regurgitation. She was taken to the OR on 04/[address] Landry for a mitral valve repair and they CABG x 3. She returned to the CVICU on Levophed, Cardene, Precedex, and
insulin infusions. She was weaned off Precedex and patient was extubated by 1829. On 04/12 postoperative day #1 Levophed was weaned off and pleural chest tube was removed. She was diuresed with 40 mg of IV Lasix. On 8/8 postoperative day #2
patient was diuresed with 40 mg of IV Lasix. She was found to be anemic with a hemoglobin of 7.9 with lightheadedness with ambulation therefore she was transfused with 1 unit of packed red blood cells. Her epicardial wires were pulled along with
her chest tubes. She was also transitioned off her insulin drip and was started on Farxiga and metformin per our diabetes management [employer]. After the unit of blood she reports improved lightheadedness. On 04/14 postoperative day #3, patient was
diuresed with 60 mg of IV Lasix twice daily, and beta-blockers were increased. Right IJ Cordis was removed. On 04/15 postoperative pain #4, she was deemed stable for discharge. Repeat chest x-ray was stable. She was discharged home with a 1 week
course of diuretics.
Home medication changes:
See below
Discharge Plan
-
Patient Disposition: Home (Routine Discharge)
Discharge Diagnosis/Procedures: CABG x3 and Mitral valve repair
Condition: Good
Diet: Low Cholesterol and 2 Gram Sodium
Activity: No strenuous activity
Driving Restrictions: Not until seen by your Dr
Bathing Restrictions: OK to Shower
Blood Work: BMP in 1 week
Other Services: Cardiac Rehab
Specialty Instructions: Weigh Daily- Call MD for wt gain/loss 3 lbs overnight/5 lbs in 1 week
Activity Restrictions/Additional Instructions:
ACTIVITY:
-No strenuous activity: no heavy lifting, pushing, pulling anything over 15 pounds for one month
-continue to use stairs as tolerated
DRIVING RESTRICTIONS:
-No driving for one month or until approved by your surgeon
WOUND CARE:
-Shower daily. Use soap & water.
-No lotions, creams or powders on incision area.
DIET:
-continue a low fat/low cholesterol diet.
-IF you are diabetic, continue carb controlled diet.
CARDIAC REHAB:
-Please make appointment to start in 5-6 weeks with your local hospital program. (See Cardiac Rehabilitation Discharge Booklet).
SPECIALTY INSTRUCTIONS:
-Weigh yourself daily. Call your physician for any weight gain/loss of 3 lbs overnight or 5 lbs in one week.
-REPORT any clicking noise or uneven appearance of your sternum to your surgeon immediately.
-If you smoke, you are instructed to quit. The [place] smoking hotline phone number is [phone]
Stand Alone Forms: DC Instructions- Cath/EP Lab
Referrals:
CT Transitional Care Nurse [Outside] (The Cardiothoracic Transitional Care Nurse will call you to set up a visit in 1-2 days.)
[facility] [Outside] - 05/19/24 9:30 am
(Cardiac Rehab Orientation appointment is on Wednesday05/19/24 at 9:30am
The Cardiac Rehab gym is located on the first floor of the [facility].)
Woo Triplett MD [Active] - 05/22/24 10:20 am
()
Mathew Landry MD [Active] - 05/11/24 2:00 pm
Senia Abbasi MD [Family Provider] -
Additional Discharge Medication Instructions: Please continue your Plavix for a total of 1 year
Your vitamin C and iron supplements can be continued for 2 weeks total for postoperative anemia
Do not resume your losartan or your Mounjaro until instructed by physician.
Prescriptions:
New
cyclobenzaprine 10 mg Tablet
5 mg PO Q8HPRN PRN (Reason: muscle spasm) Qty: 20 0RF
cephalexin 500 mg Capsule
500 mg PO BID Qty: 7 0RF
gabapentin 100 mg Capsule
100 mg PO TID Qty: 30 0RF
oxycodone 5 mg Tablet
5 mg PO Q6HPRN PRN (Reason: severe pain) Qty: 20 0RF
Rx Instructions:
Take 2.5mg (half a tablet) for pain 4-6
Take 5mg (whole tablet) for pain >6
potassium chloride 20 mEq Tablet,Er Particles/Crystals
20 meq PO PRN PRN (Reason: hypokalemia while on lasix) Qty: 7 0RF
pantoprazole 40 mg Tablet,Delayed Release (Dr/Ec)
40 mg PO DAILY Qty: 90 3RF
dapagliflozin propanediol 10 mg Tablet
10 mg PO DAILY Qty: 60 0RF
ascorbic acid (vitamin C) [Vitamin C] 500 mg Tablet
500 mg PO DAILY Qty: 0 0RF
metformin 1,000 mg Tablet
1,000 mg PO BID@0800,1700 Qty: 90 1RF
ferrous sulfate 325 mg (65 mg iron) tablet
325 mg PO DAILY Qty: 14 0RF
docusate sodium [Colace] 100 mg capsule
100 mg PO DAILY PRN (Reason: constipation) Qty: 30 0RF
furosemide [Lasix] 40 mg tablet
40 mg PO DAILY Qty: 7 0RF
Continued
magnesium 250 mg Tablet
250 mg PO DAILY
lorazepam [Ativan] 0.5 mg Tablet
0.5 mg PO DAILYPRN PRN (Reason: panic attacks,anxiety)
escitalopram oxalate [Lexapro] 20 mg Tablet
20 mg PO DAILY
aspirin 81 mg Tablet,Delayed Release (Dr/Ec)
81 mg PO DAILY
clopidogrel [Plavix] 75 mg Tablet
75 mg PO DAILY
rosuvastatin 20 mg tablet
20 mg PO HS
metoprolol succinate [Toprol XL] 50 mg tablet extended release 24 hr
50 mg PO DAILY
acetaminophen [Tylenol] 325 mg Tablet
650 mg PO Q4HPRN PRN (Reason: mild pain)
therapeutic multivitamin Tablet
1 tab PO DAILY
calcium carbonate 500 mg calcium (1,250 mg) Tablet
500 mg PO DAILY
cholecalciferol (vitamin D3) [Vitamin D3] 25 mcg (1,000 unit) Tablet
25 mcg PO DAILY
Discontinued
nitroglycerin 0.4 mg tablet, sublingual
0.4 mg sublingual [id number] PRN (Reason: chest pain) Qty: 25 2RF
Patient Comments:
'I took it around 3 pm today and again at 7:30 pm.'
metformin 1,000 mg Tablet
1,000 mg PO DAILY
losartan 100 mg Tablet
100 mg PO DAILY
Mounjaro 10 mg/0.5 mL Pen Injector
12.5 mg SC TH
Discharge Orders:
Discharge Patient (As Directed); Ordered 04/15/24
Ordered By: Alpa Lopez
Care Plan Goals
Care Plan Goals:
Problem: Readiness for enhanced knowledge related to diagnosis and treatment plan
Goal: Understand your diagnosis and treatment plan needs, including medications if applicable.
Instructions: Know your diagnosis, underlying causes and treatment plan options, including medications if applicable. Consult with your health care team to learn about your diagnosis and treatment plan, including medications if applicable.
Discharge Date and Time
Print Language: TONGAN
[2024-04-15] MEDS: NSS IV (10:27)
--- NOTE | 2024-04-15 11:00 | PTCARENOTE ---
pt discharged home, discharge instructions reviewed w/ patient and , home meds reviewed. questions answered. IV and tele dc'd. pt showered, dressed self. pt left via wheelchair w/ all belongings.
== END 2024-04-15 11:15 | disposition home or self-care (01) | DRG 216 ==
LOC: CVICU 11:36
PROVIDERS: Anesthesiology; Clinical Nurse Specialist Acute Care; Family Medicine; Hospitalist; Internal Medicine; Nurse Practitioner; Student in an Organized Health Care Education/Training Program; ADMITTING PHYSICIAN Hospitalist; ATTENDING PHYSICIAN Thoracic Surgery (Cardiothoracic Vascular Surgery); CONSULT PHYSICIAN Internal Medicine Cardiovascular Disease; EMERGENCY PHYSICIAN Emergency Medicine; FAMILY PHYSICIAN Internal Medicine; OTHER PHYSICIAN Internal Medicine Critical Care Medicine; OTHER PHYSICIAN Thoracic Surgery (Cardiothoracic Vascular Surgery)
PROC: 4A023N7 Measurement of Cardiac Sampling and Pressure, Left Heart, Percutaneous Approach (ICD-10-PCS; 2024-04-03)
PROC: B2111ZZ Fluoroscopy of Multiple Coronary Arteries using Low Osmolar Contrast (ICD-10-PCS; 2024-04-03)
PROC: 4A033BC Measurement of Arterial Pressure, Coronary, Percutaneous Approach (ICD-10-PCS; 2024-04-03)
PROC: 021009W Bypass Coronary Artery, One Artery from Aorta with Autologous Venous Tissue, Open Approach (ICD-10-PCS; 2024-04-11)
PROC: B24BZZ4 Ultrasonography of Heart with Aorta, Transesophageal (ICD-10-PCS; 2024-04-11)
PROC: 02100Z8 Bypass Coronary Artery, One Artery from Right Internal Mammary, Open Approach (ICD-10-PCS; 2024-04-11)
PROC: 02100Z9 Bypass Coronary Artery, One Artery from Left Internal Mammary, Open Approach (ICD-10-PCS; 2024-04-11)
PROC: 06BP4ZZ Excision of Right Saphenous Vein, Percutaneous Endoscopic Approach (ICD-10-PCS; 2024-04-11)
PROC: 5A1221Z Performance of Cardiac Output, Continuous (ICD-10-PCS; 2024-04-11)
PROC: 02UG0JZ Supplement Mitral Valve with Synthetic Substitute, Open Approach (ICD-10-PCS; 2024-04-11)
PROC: 30233N1 Transfusion of Nonautologous Red Blood Cells into Peripheral Vein, Percutaneous Approach (ICD-10-PCS; 2024-04-13)
DX: T82.855A Stenosis of coronary artery stent, initial encounter (principal); I21.4 Non-ST elevation (NSTEMI) myocardial infarction; D62 Acute posthemorrhagic anemia; Q60.0 Renal agenesis, unilateral; E87.1 Hypo-osmolality and hyponatremia; I10 Essential (primary) hypertension; E11.9 Type 2 diabetes mellitus without complications; I45.6 Pre-excitation syndrome; E78.00 Pure hypercholesterolemia, unspecified; I25.10 Atherosclerotic heart disease of native coronary artery without angina pectoris; F32.A Depression, unspecified; F41.0 Panic disorder [episodic paroxysmal anxiety]; F12.90 Cannabis use, unspecified, uncomplicated; I08.1 Rheumatic disorders of both mitral and tricuspid valves; E87.70 Fluid overload, unspecified; Y83.1 Surgical operation with implant of artificial internal device as the cause of abnormal reaction of the patient, or of later complication, without mention of misadventure at the time of the procedure; I25.2 Old myocardial infarction; Z79.02 Long term (current) use of antithrombotics/antiplatelets; Z79.82 Long term (current) use of aspirin; Z79.84 Long term (current) use of oral hypoglycemic drugs; Z79.899 Other long term (current) drug therapy; Z82.49 Family history of ischemic heart disease and other diseases of the circulatory system; Z87.891 Personal history of nicotine dependence; Z95.5 Presence of coronary angioplasty implant and graft
CPT/HCPCS: 93308; 70355; 71045; 71046; 74177; 80048; 80053; 80061; 80069; 80076; 81003; 81015; 82248; 82330; 82565; 82805; 82810; 82947; 82962; 83036; 83540; 83550; 83605; 83690; 83735; 84132; 84302; 84484; 84520; 85014; 85018; 85025; 85027; 85049; 85347; 85610; 85730; 86850; 86900; 86901; 86920; 87070; 87077; 87086; 87186; 93005; 93306; 93312; 93320; 93321; 93325; 93458; 93571; 93880; 93970; 94002; 94010; 99285; C1713; C1769; C1894; J2916; P9016; P9045; P9047; Q9967

== ENCOUNTER 2024-05-24 15:04 | Outpatient (RCR) | payer MEDICARE, SELFPAY ==
[2024-05-19 11:04] LABS: Glucose - Point of Care 168 mg/dl (70-99)
[2024-05-19 11:50] LABS: Glucose - Point of Care 148 mg/dl (70-99)
[2024-05-24 14:49] LABS: Glucose - Point of Care 109 mg/dl (70-99)
[2024-05-24 15:29] LABS: Glucose - Point of Care 82 mg/dl (70-99)
[2024-05-29 15:50] LABS: Glucose - Point of Care 138 mg/dl (70-99)
== END 2024-05-24 23:59 | disposition home or self-care (01) ==
LOC: CRHB 15:04
PROVIDERS: ATTENDING PHYSICIAN Internal Medicine Cardiovascular Disease
DX: Z95.1 Presence of aortocoronary bypass graft (principal); Z95.2 Presence of prosthetic heart valve
CPT/HCPCS: 82962; G0422; G0423

== ENCOUNTER → 2024-05-25 11:06 | Outpatient (REF) | payer MEDICARE, SELFPAY | LOC: RCS 11:06 | PROVIDERS: ATTENDING PHYSICIAN Internal Medicine Cardiovascular Disease; FAMILY PHYSICIAN Internal Medicine | DX: R00.0 Tachycardia, unspecified (principal) | CPT/HCPCS: 93225; 93226 ==

== ENCOUNTER → 2024-11-13 10:02 | Outpatient (REF) | payer MEDICARE, SELFPAY | LOC: HWRCS 10:02 | PROVIDERS: ATTENDING PHYSICIAN Thoracic Surgery (Cardiothoracic Vascular Surgery); FAMILY PHYSICIAN Internal Medicine | DX: Z95.1 Presence of aortocoronary bypass graft (principal); Z98.890 Other specified postprocedural states | CPT/HCPCS: 93306 ==